=== PATIENT | female | born 1970 | race Caucasian/White ===

== ENCOUNTER 2023-08-12 17:48 | Inpatient (IN) | payer OTHER, SELFPAY ==
[2023-08-12] VITALS (40 sets, daily range): BP systolic 122–152; BP diastolic 72–117; PULSE 94–123; RESP 16–33; TEMP 37.1; O2SAT 94–100
--- NOTE | 2023-08-12 18:09 | ECG_ITS ---
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 Measurements Intervals [place] Rate: 122 P: 70 ID: [id number] QRS: -44 QRSD: 83 T: 81 QT: 322 QTc: 459 Interpretive Statements SINUS TACHYCARDIA LEFT AXIS DEVIATION [QRS AXIS < -30] POSSIBLE RIGHT VENTRICULAR CONDUCTION DELAY [RSR (QR) IN V1/V2] SEPTAL MYOCARDIAL INFARCTION , PROBABLY RECENT [40+ ms Q WAVE IN V1/V2] No previous ECG available for comparison Electronically Signed On 08-13-2023 6:36:17 CDT by Sathya Lezama M.D. [id number]
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
[2023-08-12 18:37] LABS: ABG PH Result 7.38 (7.35-7.45); Alveolar-Arterial Oxygen Gradi 5.1 mmHg (5-10); Arterial Blood Gas Hematocrit 57.6 % (37-47); Base Excess ABG -7.8 mmol/L (-2.0-2.0); Blood Gas Allen Test Pos; Blood Gas Operator Identificat WALCI; Blood Gas Sample Site Radial, right; Blood Gas Sample Type Arterial; HCO3 ABG 14.9 mmol/L (22-26); HGB O2 Sat 94.8 % (95-100); Ionized Calcium Level - ABG 1.1 mmol/L (1.1-1.4); Methemoglobin 0.3 % (0.4-1.5); Oxygen Device ROOM AIR; PO2 ABG 77.6 mmHg (80.0-100.0); PO2 FiO2 Ratio Arterial Blood 0; Potassium Level - ABG 4.3 mmol/L (3.5-5.0); Total Hemoglobin 18.8 g/dL (12-16)
[2023-08-12] MEDS: tetanus-dipt-pertussis 0.5 mL SDV IM (18:39)
[2023-08-12] MEDS: sodium chloride 0.9% 1,000 ML 999 ML IV ×3 (18:39→22:05)
[2023-08-12 18:48] LABS: Basophils # 0.1 10^3/uL (0.0-0.1); Basophils % 0.4 %; Hematocrit 55.2 % (36-47); Lymphocytes # 1.7 10^3/uL (0.8-4.8); Lymphocytes % 5.5 %; Mean Corpuscular HGB Conc 34.2 g/dL (30-55); Mean Corpuscular Hemoglobin 31.2 pg (27-33); Mean Corpuscular Volume 91.1 fl (85-98); Mean Platelet Volume 9.5 fL (7.4-10.4); Monocytes # 1.3 10^3/uL (0.2-0.9); Monocytes % 4.3 %; Neutrophils # 27.36 10^3/uL (1.8-7.7); Neutrophils % 88.5 %; Nucleated Red Blood Cells % 0.1 %; Platelet Count 242 10^3/cmm (157-399); Red Blood Count 6.06 10^6/uL (3.85-5.65); Red Cell Distribution Width 15.9 % (12.1-15.1)
[2023-08-12 19:02] LABS: Ketone (Acetest) Serum Negative (Negative)
[2023-08-12 19:03] LABS: Add Urine Microscopic? YES; Bilirubin Urine Neg (Negative); Blood Urine 3+ (Negative); Glucose Urine UA Norm (Normal); Ketones Urine Negative (Negative); Leukocyte Esterase Urine Negative (Negative); Nitrate Urine Negative (Negative); Protein Urine 1+ (Negative); Urine Appearance SL Hazy (CLEAR); Urine Color Yellow (Yellow); Urobilinogen Urine Norm (Negative); pH Urine 5 (5-7)
[2023-08-12 19:07] LABS: RBC Urine 0-4 /hpf (0-2)
[2023-08-12 19:08] LABS: Add Urine Culture? No; Amorphous Sediment Urine TRACE /hpf; Amphetamines Screen Urine Negative (Negative); Bacteria Urine TRACE /hpf; Barbiturates Screen Urine Negative (Negative); Benzodiazepines Screen Urine Negative (Negative); Cocaine Screen Urine Negative (Negative); Mucus Urine TRACE /hpf; Opiate Screen Urine Negative (Negative); PCP Screen Urine Negative (Negative); Squamous Epithelial Cell Urine 0-4 /hpf (0-5); THC Screen Urine Negative (Negative); WBC Urine 0-4 /hpf (0-5)
[2023-08-12 19:11] LABS: White Blood Count 30.91 10^3/uL (3.29-11.43)
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
[2023-08-12 19:27] LABS: Ammonia 21 umol/L (11-51); Lactic Sepsis W/Reflex 3.4 mmol/L (0.5-2.2)
[2023-08-12 19:34] LABS: Alanine Aminotransferase 250 U/L (0-33); Albumin Level 4.2 g/dL (3.5-5.2); Alkaline Phosphatase 118 U/L (35-105); Aspartate Amino Transferase 377 U/L (0-32); Calcium 9.4 mg/dL (8.5-10.5); Carbon Dioxide 20 mmol/L (22-29); Chloride 108 mmol/L (98-107); Globulin 4.7 g/dL (1.3-4.6); Glomerular Filtration Rate 12.9 mL/min (90-130); Glucose 154 mg/dL (65-115); Lipase 47 U/L (13-60); Magnesium 3.9 mg/dL (1.7-2.3); Osmolality Calculated 350 mOsm/kg (285-295); Sodium 151 mmol/L (136-145); Total Bilirubin 0.7 mg/dL (0.15-1.2); Total Protein 8.9 g/dL (6.6-8.7)
[2023-08-12 19:39] LABS: Acetaminophen < 5.0 ug/mL (10-30); Alcohol Level < 10 mg/dL (0-10); Anion Gap 27.4 (5-19); Potassium 4.4 mmol/L (3.5-5.1); Salicylate < 0.3 mg/dL (3-10)
[2023-08-12 19:40] LABS: Blood Urea Nitrogen 110 mg/dL (6-20)
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
[2023-08-12 19:54] LABS: Creatine Phosphokinase 27598 U/L (26-192)
[2023-08-12 20:33] LABS: Reflex Lactate Order REFLEX LACTIC ORDERD
[2023-08-12] MEDS: cefTRIAXone 1,000 MG in sodium chloride 0.9% (plus) 50 ML 100 MG IV (20:44)
--- NOTE | 2023-08-12 22:11 | PC.NURSE ---
pt care note. officer came to speak with patient. pt was alert and oriented and consented for sane exam. this nurse called sane nurses back in.
[2023-08-12 22:34] LABS: Lactic Acid level (Lactate) 2.7 mmol/L (0.5-2.2)
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
--- NOTE | 2023-08-12 23:14 | ECG_ITS ---
[facility] Test Date: 2023-08-12 Pat Name: Sobeida Barrios Department: Room: ICU12 Gender: Female Trick Rodeo Rider: : 1970 Requested By: Tiffany Wagner Order Number: [id number] Terra MD: Sathya Lezama M.D. Measurements Intervals [place] Rate: 114 P: 66 CT: 136 QRS: -35 QRSD: 84 T: 52 QT: 341 QTc: 471 Interpretive Statements SINUS TACHYCARDIA WITH OCCASIONAL VENTRICULAR PREMATURE COMPLEXES POSSIBLE LEFT ATRIAL ENLARGEMENT [-0.1mV P-WAVE IN V1/V2] LEFT AXIS DEVIATION [QRS AXIS < -30] POSSIBLE RIGHT VENTRICULAR CONDUCTION DELAY [RSR (QR) IN V1/V2] SEPTAL MYOCARDIAL INFARCTION , PROBABLY RECENT [40+ ms Q WAVE IN V1/V2] ACUTE WV Compared to ECG 08/12/2023 18:20:38 Ventricular premature complex(es) now present Myocardial infarct finding still present Electronically Signed On 08-13-2023 6:35:45 CDT by Sathya Lezama M.D. [email or web address]
--- NOTE | 2023-08-12 23:19 | PC.NURSE ---
96 Hour Involuntary Hold Patient Rights have been read to the patient and a copy of the same has been given to her. Engine Wiper Kindra Duarte was present at bedside at the time of presentation of Rights.
[2023-08-13] VITALS (108 sets, daily range): BP systolic 118–150; BP diastolic 72–106; PULSE 76–117; RESP 14–30; TEMP 37.2–37.7; O2SAT 77–100; BMI 25.3; BMI 25.2
[2023-08-13 00:34] LABS: Troponin(5th) Baseline 585 ng/L (0-10)
--- NOTE | 2023-08-13 00:53 | USCV_ITS ---
Sobeida Barrios Age: 53 Gender: F : 1970 Exam Date: 08/13/2023 08:23 Ordering Phys: Tiffany Wagner MD Technologist: Exam Location: [facility] [place] Indication: chest pain BP: 124 / 73 HR: 101 Rhythm: Sinus Technical Quality: Adequate MEASUREMENTS (Male / Female) Normal Values 2D ECHO LV Diastolic Diameter PLAX 3.7 cm 4.2 - 5.9 / 3.9 - 5.3 cm IVS Diastolic Thickness 1.1 cm 0.6 - 1.0 / 0.6 - 0.9 cm IVS Systolic Thickness 1.3 cm LVPW Diastolic Thickness 1.0 cm 0.6 - 1.0 / 0.6 - 0.9 cm LVPW Systolic Thickness 1.5 cm LVOT Diameter 2.0 cm LV Ejection Fraction 2D Teich 49.3 % LV Ejection Fraction MOD 2C 57.4 % LV Ejection Fraction 2C AL 57.4 % LA Diameter 2.2 cm RA Systolic Volume 4C AL 18.7 ml RA Systolic Volume 4C MOD 18.0 ml LA Sys Volume AL 33.8 cm cubed LA Sys Volume Index AL 20.4 cm cubed/m squared Aorta at Sinotubular Diameter 2.9 cm IVC Diameter 1.1 cm M-MODE LA Ao Ratio MM 0.9 AV Cusp Separation MM 2.1 cm DOPPLER AV Peak Velocity 123.0 cm/s LVOT Peak Velocity 100.0 cm/s AV Area Cont Eq vti 3.5 cm squared AV Area Cont Eq pk 2.6 cm squared MV Peak Velocity 88.0 cm/s MV Area PHT 4.3 cm squared Mitral E to A Ratio 0.9 TR Peak Velocity 136.0 cm/s TR Peak Gradient 7.4 mmHg TV Peak E Velocity 132.0 cm/s Right Atrial Pressure 3.0 mmHg Pulmonary Artery Systolic Pressu 10.4 mmHg PV Peak Velocity 117.0 cm/s FINDINGS Left Ventricle Normal left ventricular size and systolic function, EF 57%no regional wall motion abnormalities. . Right Ventricle The right ventricle is normal in size and function. Right Atrium The right atrium is normal in size. Left Atrium The left atrium is normal in size. Mitral Valve No gross abnormalities noted Aortic Valve Trace aortic valve regurgitation. Tricuspid Valve Trace to mild tricuspid valve regurgitation. Estimated pulmonary artery peak systolic pressure within normal limits Pulmonic Valve Pulmonic valve not well visualized. Pericardium Normal pericardium without effusion. Aorta Normal ascending aorta dimension. IVC Normal inferior vena cava. CONCLUSIONS Normal left ventricular size and systolic function, EF 57%no regional wall motion abnormalities. . Trace aortic valve regurgitation. Trace to mild tricuspid valve regurgitation. Estimated pulmonary artery peak systolic pressure within normal limits. There is no pericardial effusion. Technically difficult study because of the poor ultrasonic window. Dr Narda Ramírez MD FAC (Electronically Signed) Final Date: 13 August 2023 17:00 S
[2023-08-13] MEDS: sodium chloride 0.9% 1,000 ML 125 ML IV (01:03)
[2023-08-13] MEDS: azithromycin 500 MG in sodium chloride 0.9% 250 ML 250 MG IV (01:03)
[2023-08-13] MEDS: aspirin 325 mg Tablet PO (01:03)
[2023-08-13 01:43] LABS: Platelet Count 179 10^3/cmm (157-399)
[2023-08-13] MEDS: heparin 5,000 unit/mL INJ 1 mL IV (01:46)
[2023-08-13] MEDS: heparin drip 25,000 UNIT/500 ML PREMIX 19 UNIT IV (01:46)
[2023-08-13 02:06] LABS: C Reactive Protein 154.2 mg/L (0.0-4.9); Cholesterol 214 mg/dL (0-200); HDL Cholesterol 42 mg/dL (60-100); Triglycerides 420 mg/dL (0-150)
[2023-08-13] MEDS: piperacillin-tazobactam 3.375 GM in sodium chloride 0.9% (plus) 50 ML IV ×2 (02:08→12:38)
[2023-08-13 02:11] LABS: Estmated Average Glucose 108; Hemoglobin A1C 5.4 % (4.0-6.0)
[2023-08-13 02:12] LABS: Troponin 5 2HR 620.3 ng/L (0-10); Troponin 5 2HR Delta 35.3 ABS# (0-10)
[2023-08-13 02:25] LABS: LDL Cholesterol Direct 86 mg/dL (0-100)
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
--- NOTE | 2023-08-13 05:14 | ECG_ITS ---
[facility] Test Date: 2023-08-13 Pat Name: Sobeida Barrios Department: Room: ICU12 Gender: Female [employer]ator: : 1970 Requested By: Tiffany Wagner Order Number: [id number] Terra MD: Sathya Lezama M.D. Measurements Intervals [place] Rate: 110 P: 67 NV: 134 QRS: -26 QRSD: 77 T: 53 QT: 356 QTc: 482 Interpretive Statements SINUS TACHYCARDIA POSSIBLE RIGHT VENTRICULAR CONDUCTION DELAY [RSR (QR) IN V1/V2] SEPTAL MYOCARDIAL INFARCTION , OF INDETERMINATE AGE [40+ ms Q WAVE IN V1/V2] Compared to ECG 08/12/2023 23:49:22 Ventricular premature complex(es) no longer present Left-axis deviation no longer present Myocardial infarct finding still present Electronically Signed On 08-13-2023 6:37:10 CDT by Sathya Lezama M.D. [id number]
[2023-08-13 06:04] LABS: Basophils % 0.2 %; Hematocrit 44.4 % (36-47); Lymphocytes # 1.8 10^3/uL (0.8-4.8); Lymphocytes % 7.2 %; Mean Corpuscular HGB Conc 33.3 g/dL (30-55); Mean Corpuscular Hemoglobin 31.1 pg (27-33); Mean Corpuscular Volume 93.3 fl (85-98); Mean Platelet Volume 9.5 fL (7.4-10.4); Monocytes # 1.2 10^3/uL (0.2-0.9); Neutrophils % 87.2 %; Nucleated Red Blood Cells % 0 %; Platelet Count 180 10^3/cmm (157-399); Red Blood Count 4.76 10^6/uL (3.85-5.65); Red Cell Distribution Width 15.7 % (12.1-15.1); White Blood Count 24.55 10^3/uL (3.29-11.43)
[2023-08-13 06:26] LABS: Alanine Aminotransferase 162 U/L (0-33); Albumin Level 2.9 g/dL (3.5-5.2); Alkaline Phosphatase 78 U/L (35-105); Anion Gap 20.4 (5-19); Aspartate Amino Transferase 235 U/L (0-32); Calcium 7.4 mg/dL (8.5-10.5); Carbon Dioxide 16 mmol/L (22-29); Chloride 123 mmol/L (98-107); Creatinine Clr Calc Pharmacy 22.0731; Globulin 3.2 g/dL (1.3-4.6); Glomerular Filtration Rate 17.7 mL/min (90-130); Glucose 120 mg/dL (65-115); Osmolality Calculated 350 mOsm/kg (285-295); Potassium 4.4 mmol/L (3.5-5.1); Sodium 155 mmol/L (136-145); Total Bilirubin 0.7 mg/dL (0.15-1.2); Total Protein 6.1 g/dL (6.6-8.7)
[2023-08-13] MEDS: dextrose 5%-sod chloride 0.45% 1,000 ML 125 ML IV ×2 (06:29→16:35)
[2023-08-13 06:31] LABS: Blood Urea Nitrogen 94 mg/dL (6-20); Troponin 5 6HR 679.4 ng/L (0-10); Troponin 5 6HR Delta 94.4 ng/L (0-12)
[2023-08-13 06:34] LABS: HIV 1 & 2 Antibody Non-Reactive (Non-Reactiv); HIV 1 & 2 Antigen Non-Reactive (Non-Reactiv)
[2023-08-13 06:40] LABS: Hepatitis A Antibody IgM Non-Reactive (Nonreactive); Hepatitis B Core AB, Total Non-Reactive (Nonreactive); Hepatitis B Surface AB < 3.5 (11.5-1000); Hepatitis B Surface Antigen Non-Reactive (Nonreactive); Hepatitis C Virus Antibody Non-Reactive (Nonreactive)
[2023-08-13] MEDS: vancomycin 1,000 MG in sodium chloride 0.9% 250 ML 250 MG IV (08:19)
[2023-08-13 08:58] LABS: Partial Thromboplastin Time 91.9 SECONDS (23.9-36.7)
--- NOTE | 2023-08-13 09:24 | USCV_ITS ---
Sobeida Barrios Age: 53 Gender: F : 1970 Exam Date: 08/13/2023 09:48 Ordering Phys: Emily Tolliver MD Technologist: [place] [facility] [place] Indication: cold feet RIGHT LEFT Brachial 100.00 mmHg Brachial 100.00 mmHg Pressure (mmHg) Waveform Pressure (mmHg) Waveform 100.00 Triphasic ELECTRIC CAR OPERATOR 100.00 Biphasic 100.00 Biphasic DPA 100.00 Biphasic 1.00 Ankle/Brachial Index 1.00 FINDINGS Resting TIFFANIE 1.0 bilaterally Normal arterial Doppler waveforms CONCLUSIONS No significant arterial obstruction, based on the above findings. Dr Narda Ramírez MD [facility] (Electronically Signed) Final Date: 13 August 2023 12:11 S
[2023-08-13 10:13] LABS: Creatine Phosphokinase 18182 U/L (26-192)
[2023-08-13 13:15] LABS: Adenovirus Not Detected (NOT DETECT); Chlamydia Pneumoniae Not Detected (NOT DETECT); Coronavirus 229E,HKU1,NL63,OC4 Not Detected (NOT DETECT); Human Metapneumovirus Not Detected (NOT DETECT); Human Rhinovirus/Enterovirus Not Detected (NOT DETECT); Influenza A Not Detected (NOT DETECT); Influenza A H1 Not Detected (NOT DETECT); Influenza A H1-2009 Not Detected (NOT DETECT); Influenza A H3 Not Detected (NOT DETECT); Influenza B Not Detected (NOT DETECT); Mycoplasma Pneumoniae Not Detected (NOT DETECT); Parainfluenza Virus Type 1 Not Detected (NOT DETECT); Parainfluenza Virus Type 2 Not Detected (NOT DETECT); Parainfluenza Virus Type 3 Not Detected (NOT DETECT); Parainfluenza Virus Type 4 Not Detected (NOT DETECT); Respiratory Syncytial Virus A Not Detected (NOT DETECT); Respiratory Syncytial Virus B Not Detected (NOT DETECT); SARS-COV-2 Not Detected (NOT DETECT)
[2023-08-13 15:27] LABS: Partial Thromboplastin Time 67.7 SECONDS (23.9-36.7)
[2023-08-13 15:35] LABS: Troponin T (5th) Once 672 ng/L (0-10)
--- NOTE | 2023-08-13 16:53 | PC.NURSE ---
Patient is now A&O to person, place, year and month. She is still confused about why she is in the hospital and the events that led up to event.
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
[2023-08-13] MEDS: pantoprazole 40 mg SDV IVP (19:45)
[2023-08-13] MEDS: clopidogrel 300 mg Tablet PO (19:46)
[2023-08-13] MEDS: permethrin lotion 59 mL Btl 1 APPLIC TOPICAL (19:46)
[2023-08-13] MEDS: atorvastatin 40 mg Tablet PO (21:34)
[2023-08-13] MEDS: metoprolol tartrate 25 mg Tablet PO (21:34)
[2023-08-13] MEDS: ciprofloxacin 0.3% Op Soln 2.5 mL Btl 1 DROP EYE-BOTH (21:36)
--- NOTE | 2023-08-13 21:57 | PC.NURSE ---
Pt transported via wheelchair to take shower and be treated for headlice. Pt requested to have her head shaved. Shaved patients head and treated scalp for lice. Returned to room via wheelchair, reconnected to library monitor. Vital signs stable.
[2023-08-13 22:26] LABS: Partial Thromboplastin Time 40.5 SECONDS (23.9-36.7)
[2023-08-14] VITALS (25 sets, daily range): BP systolic 101–130; BP diastolic 60–85; PULSE 73–90; RESP 15–23; TEMP 36.6–37.4; O2SAT 91–100
[2023-08-14] MEDS: piperacillin-tazobactam 3.375 GM in sodium chloride 0.9% (plus) 50 ML IV (00:24)
[2023-08-14] MEDS: dextrose 5%-sod chloride 0.45% 1,000 ML 125 ML IV ×3 (02:15→22:07)
[2023-08-14 04:00] LABS: Basophils % 0.2 %; Eosinophils % 0.2 %; Hematocrit 39.1 % (36-47); Lymphocytes # 2.5 10^3/uL (0.8-4.8); Lymphocytes % 16.6 %; Mean Corpuscular HGB Conc 32.5 g/dL (30-55); Mean Corpuscular Hemoglobin 31.1 pg (27-33); Mean Corpuscular Volume 95.6 fl (85-98); Mean Platelet Volume 9.7 fL (7.4-10.4); Monocytes # 0.7 10^3/uL (0.2-0.9); Monocytes % 4.8 %; Neutrophils # 11.75 10^3/uL (1.8-7.7); Neutrophils % 77.8 %; Nucleated Red Blood Cells % 0 %; Platelet Count 125 10^3/cmm (157-399); Red Blood Count 4.09 10^6/uL (3.85-5.65); White Blood Count 15.09 10^3/uL (3.29-11.43)
[2023-08-14 04:23] LABS: Alanine Aminotransferase 131 U/L (0-33); Albumin Level 2.5 g/dL (3.5-5.2); Alkaline Phosphatase 63 U/L (35-105); Anion Gap 12.6 (5-19); Aspartate Amino Transferase 216 U/L (0-32); Blood Urea Nitrogen 54 mg/dL (6-20); Calcium 7.6 mg/dL (8.5-10.5); Carbon Dioxide 21 mmol/L (22-29); Chloride 120 mmol/L (98-107); Creatinine Clr Calc Pharmacy 36.3557; Globulin 2.8 g/dL (1.3-4.6); Glomerular Filtration Rate 31.6 mL/min (90-130); Glucose 122 mg/dL (65-115); Osmolality Calculated 326 mOsm/kg (285-295); Potassium 3.6 mmol/L (3.5-5.1); Sodium 150 mmol/L (136-145); Total Bilirubin 0.5 mg/dL (0.15-1.2); Total Protein 5.3 g/dL (6.6-8.7)
[2023-08-14 04:41] LABS: Creatine Phosphokinase 15308 U/L (26-192)
[2023-08-14] MEDS: pantoprazole 40 mg SDV IVP ×2 (06:22→18:31)
[2023-08-14] MEDS: enoxaparin 40 mg/0.4 mL Syringe SUBCUT (06:22)
[2023-08-14] MEDS: aspirin 81 mg EC Tablet PO (08:01)
[2023-08-14] MEDS: metoprolol tartrate 25 mg Tablet PO ×2 (08:01→20:15)
--- NOTE | 2023-08-14 11:41 | PC.NURSE ---
Received call from Naima Winchester [phone]. States she is the patient's mother and she wants an update. Naima says that the patient's called her and said she was in the hospital for a heart attack. Nurse advised he will pass the message on to the primary nurse.
--- NOTE | 2023-08-14 11:52 | P.PN_ITS ---
Subjective 2 Subjective: No acute overnight events noted. Was seen at bedside. She denies any complaint of nausea vomiting chest pain or shortness of breath. Reports feeling well but looks upset and depressed. Informed her about my discussion with her Everett Barrios. Medications: Reviewed: Yes Vitals/I&O/Wt Last Vital Signs Temp 99.0 F 08/14/23 04:00 Pulse 80 08/14/23 08:00 Resp 20 H 08/14/23 08:00 BP 110/68 08/14/23 08:00 Pulse Ox 91 08/14/23 08:00 O2 Del Method Room Air 08/14/23 06:00 08/13/23 08/14/23 08/14/23 22:59 06:59 14:59 Intake Total 540 / 1688.2 1278.367 / 2966.567 120 / 120 Output Total 1650 / 1650 950 / 2600 Balance -1110 / 38.2 328.367 / 366.567 120 / 120 Weight last 48 hrs Weight 68.946 kg Weight 66.678 kg Weight 66.996 kg Physical Exam 2 Narrative: General: Alert awake and oriented x 3 ,multiple bruises over body, head was shaved due to pediculosis, received second dose of permethrin in ICU. HEENT: PERRLA, pupils bilaterally equal and reactive, pallors not present Chest: Normal vesicular breath sounds, no added sounds, equal good air entry bilaterally CVS: S1-S2 regular, no murmurs, no tachycardia, no gallops, no rubs Abdomen: Soft, nontender, no organomegaly, bowel sounds present Neuro: moves all extremities Urinary Catheter Management: Mireles: Cath Placed During This Visit: yes Reason for Continuing Indwelling Catheter: Accurate Measurement of Urinary Output in Critically Ill Patients Urinary Catheter Date of Insertion: 08/13/23 Urinary Catheter Time of Insertion: 00:11 Data 08/14/23 03:44 08/14/23 03:44 Micro: Microbiology 08/12/23 19:54 Blood Culture - Preliminary Blood NEGATIVE TO DATE 08/12/23 19:50 Blood Culture - Preliminary Blood NEGATIVE TO DATE 08/12/23 18:45 Bacterial Antigens - Final Urine,Clean Catch A&P Assessment and plan (1) Elevated troponin: Etiology, type II [place] is a possibility. However in view of the abnormal EKG, an acute coronary event cannot be excluded. Her LV ejection fraction is normal. She has no chest pain. No acute ischemic changes in the EKG. May be treated with beta-abdoulaye, aspirin and Plavix. I may discontinue the heparin. Keep her on subcu Lovenox for DVT prophylaxis. (2) Leukocytosis: ? Acute phase reactant Qualifiers: Leukocytosis type: other Qualified Code(s): D72.828 - Other elevated white blood cell count (3) Acute dehydration: Careful IV hydration (4) Acute kidney injury: Continue careful IV hydration (5) Rhabdomyolysis: Management as per the primary Qualifiers: Encounter type: initial encounter Rhabdomyolysis type: traumatic Qualified Code(s): T79.6XXA - Traumatic ischemia of muscle, initial encounter (6) Altered mental status: Management as per the primary Qualifiers: Altered mental status type: unspecified Qualified Code(s): R41.82 - Altered mental status, unspecified (7) Multiple injuries: (8) Acute renal failure: Qualifiers: Acute renal failure type: unspecified Qualified Code(s): N17.9 - Acute kidney failure, unspecified (9) Pediculosis: Treated with Plan 53-year-old lady brought to the emergency room today in unclear circumstances and Noted to have multiple bruises Altered mental status may be related to encephalopathy vs acute delirium. Likely secondary to alcohol intoxication versus drug overdose Needs ICU monitoring for cardiopulmonary status. Acute delirium resolved. transfer to floor Cardiovascular-follow up cardiology once medically stable. Continue aspirin 81 mg and atorvastatin 40 mg. As per cardiology, may consider doing a Myocardial perfusion imaging. Discontinue IV heparin Metoprolol 25 mg p.o. Twice daily Plavix 300 mg p.o. today followed by 75 mg p.o. daily 2D echo done which showed Normal left ventricular size and systolic function, EF 57%no regional wall motion abnormalities. . Trace aortic valve regurgitation. Trace to mild tricuspid valve regurgitation. Estimated pulmonary artery peak systolic pressure within normal limits. There is no pericardial effusion. Respiratory-stable Nephrology-continue IV fluids D5 half NS at 125 MLS per hour for rhabdomyolysis. CK trending down to 15k Recheck CK at 2pm ID-leukocytosis likely reactive which is improving, in view of negative urine and blood cultures, will discontinue IV antibiotics vancomycin and Zosyn for now. Ciprofloxacin eyedrops for acute conjunctivitis GI- LFT's trending down elevation of transaminases likely due to alcohol intoxication. Psych-continue 1 is to 1 sitter until seen by psychiatry Psychiatry consult- Dr Duarte to see her today As needed Haldol for agitation if needed Regular diet DVT prophylaxis with Sq Lovenox 40mg daily GI prophylaxis with IV Protonix 40 mg twice daily She is full code for now Home medications needs to be reconciled Attestations 2 Medical Necessity Statement*: She needs continued for IV fluids for acute rhabdomyolysis reactive leukocytosis and monitoring for suicidal ideation. Psychiatry to see her today Time Spent in Patient Care: 15 minutes Coding Level of Care Code Acute Code for Chg Fwd Diagnoses Elevated troponin R79.89 Other elevated white blood cell (WBC) count D72.828 Leukocytosis type: other Acute dehydration E86.0 Acute kidney injury N17.9 Rhabdomyolysis T79.6XXA Encounter type: initial encounter Rhabdomyolysis type: traumatic Altered mental status, unspecified altered mental status type R41.82 Altered mental status type: unspecified Multiple injuries T07.XXXA Acute renal failure N17.9 Acute renal failure type: unspecified Pediculosis B85.2 Time Spent (min) 15
--- NOTE | 2023-08-14 13:24 | P.PN_ITS ---
Subjective 2 Subjective: Patient seems to be more alert today. She still does not recall what exactly happened at home. Currently has no chest pain or chest tightness. No unusual shortness of breath. The vital signs are stable. Medications: Medication Review Details: Current Medications Artificial Tears (Artificial Tears Op Soln 15 Ml Btl) 1 drop EYE-BOTH Q4H PRN PRN Reason: DRY EYE(S) Aspirin (Aspirin 81 Mg Ec Tablet) 81 mg PO DAILY [facility] Last Admin: 08/14/23 08:01 Dose: 81 mg Atorvastatin Calcium (Atorvastatin 40 Mg Tablet) 40 mg PO BEDTIME [facility] Last Admin: 08/13/23 21:34 Dose: 40 mg Ciprofloxacin HCl (Ciprofloxacin 0.3% Op Soln 2.5 Ml Btl) 1 drop EYE-BOTH QID [facility]; Protocol Last Admin: 08/14/23 08:01 Dose: Not Given Enoxaparin Sodium (Enoxaparin 40 Mg/0.4 Ml Syringe) 40 mg SUBCUT Q24H [facility] Last Admin: 08/14/23 06:22 Dose: 40 mg Haloperidol Lactate (Haloperidol Inj 5 Mg/Ml Inj 1 Ml) 2 mg IM Q4H PRN PRN Reason: prn Dextrose/Sodium Chloride (Dextrose 5%-Sod Chloride 0.45%) 1,000 mls @ 125 mls/hr IV .Q8H [facility] Last Admin: 08/14/23 02:15 Dose: 125 mls/hr Metoprolol Tartrate (Metoprolol Tartrate 25 Mg Tablet) 25 mg PO BID@0900,2100 [facility] Last Admin: 08/14/23 08:01 Dose: 25 mg Pantoprazole Sodium (Pantoprazole 40 Mg Sdv) 40 mg IVP Q12H [facility] Last Admin: 08/14/23 06:22 Dose: 40 mg Vitals/I&O/Wt Last Vital Signs Temp 99.0 F 08/14/23 04:00 Pulse 73 08/14/23 12:00 Resp 21 H 08/14/23 12:00 BP 109/65 08/14/23 12:00 Pulse Ox 91 08/14/23 08:00 O2 Del Method Room Air 08/14/23 06:00 08/13/23 08/14/23 08/14/23 22:59 06:59 14:59 Intake Total 540 / 1688.2 1278.367 / 2966.567 120 / 120 Output Total 1650 / 1650 950 / 2600 Balance -1110 / 38.2 328.367 / 366.567 120 / 120 Weight last 48 hrs Weight 152 lb Weight 147 lb Weight 147 lb 11.2 oz Physical Exam 2 Narrative: GENERAL: The patient is alert and oriented to person and place. Not in any acute distress. HEENT: No significant pallor, icterus or lymphadenopathy.Oral cavity: There are no mucous membrane lesions. NECK: Trachea appears to be central. No masses noted. No JVD or thyromegaly appreciated. RESPIRATORY: Chest is symmetrical. No intercostals muscle retraction or any accessory muscle activation. Has some bilateral chest wall tenderness. Breath sounds are heard bilaterally. BREASTS: Deferred. HEART: The heart sounds are normal. No S3 or S4. No significant murmurs. No pericardial rub ABDOMEN: No vessel pulsations or distention. No tenderness. No organomegaly appreciated. Bowel sounds are normally heard. : Deferred. RECTAL: Deferred. LYMPHATIC: No lymphadenopathy noted in the neck. EXTREMITIES: No edema or cyanosis. No clubbing. Areas of ecchymosis, superficial abrasions and bruising MUSCULOSKELETAL: No acute joint deformities or swelling SKIN: There are no significant rashes or ecchymosis NEUROPSYCHIATRIC: Patient is alert and oriented to place and person. Do not recall the recent events. No focal motor deficits. Urinary Catheter Management: Mireles: Cath Placed During This Visit: yes Reason for Continuing Indwelling Catheter: Accurate Measurement of Urinary Output in Critically Ill Patients Urinary Catheter Date of Insertion: 08/13/23 Urinary Catheter Time of Insertion: 00:11 Data 08/17/23 04:26 08/17/23 04:26 Other Labs: Laboratory Last Values WBC 15.09 10^3/uL (3.29-11.43) H 08/14/23 03:44 RBC 4.09 10^6/uL (3.85-5.65) 08/14/23 03:44 Hgb 12.70 g/dL (11.27-16.99) 08/14/23 03:44 Hct 39.1 % (36-47) 08/14/23 03:44 MCV 95.6 fl (85-98) 08/14/23 03:44 MCH 31.1 pg (27-33) 08/14/23 03:44 MCHC 32.5 g/dL (30-55) 08/14/23 03:44 RDW 16.0 % (12.1-15.1) H 08/14/23 03:44 Plt Count 125 10^3/cmm (157-399) L D 08/14/23 03:44 MPV 9.7 fL (7.4-10.4) 08/14/23 03:44 Neut % (Auto) 77.8 % 08/14/23 03:44 Lymph % (Auto) 16.6 % 08/14/23 03:44 [place] % (Auto) 4.8 % 08/14/23 03:44 Eos % (Auto) 0.2 % 08/14/23 03:44 Baso % (Auto) 0.2 % 08/14/23 03:44 Neut # (Auto) 11.75 10^3/uL (1.8-7.7) H 08/14/23 03:44 Lymph # (Auto) 2.5 10^3/uL (0.8-4.8) 08/14/23 03:44 [place] # (Auto) 0.7 10^3/uL (0.2-0.9) 08/14/23 03:44 Eos # (Auto) 0.0 10^3/uL (0.0-0.8) 08/14/23 03:44 Baso # (Auto) 0.0 10^3/uL (0.0-0.1) 08/14/23 03:44 Nucleated RBC % (auto) 0 % 08/14/23 03:44 Nucleated RBCs # 0.0 /100WBC 08/14/23 03:44 APTT 40.5 SECONDS (23.9-36.7) H 08/13/23 21:57 Specimen Type Arterial 08/12/23 18:26 Sample Site Radial, right 08/12/23 18:26 ABG pH 7.38 (7.35-7.45) 08/12/23 18:26 ABG pCO2 25.0 mmHg (35-45) L 08/12/23 18:26 ABG pO2 77.6 mmHg (80.0-100.0) L 08/12/23 18:26 ABG PO2/FiO2 Ratio 0 08/12/23 18:26 ABG HCO3 14.9 mmol/L (22-26) L 08/12/23 18:26 ABG O2 Saturation 96.0 08/12/23 18:26 ABG Base Excess -7.8 mmol/L (-2.0-2.0) L 08/12/23 18:26 Vikram Test Pos 08/12/23 18:26 A-a O2 Gradient 5.1 mmHg (5-10) 08/12/23 18:26 Hematocrit 57.6 % (37-47) H 08/12/23 18:26 Hgb O2 Saturation 94.8 % (95-100) L 08/12/23 18:26 Carboxyhemoglobin 1.0 %THgb (0.4-20.1) 08/12/23 18:26 Methemoglobin 0.3 % (0.4-1.5) L 08/12/23 18:26 Total Hemoglobin 18.8 g/dL (12-16) H 08/12/23 18:26 Sodium 153.0 mmol/L (131-143) H 08/12/23 18:26 Potassium 4.3 mmol/L (3.5-5.0) 08/12/23 18:26 Glucose 172.0 mg/dL (70-115) H 08/12/23 18:26 Ionized Calcium 1.1 mmol/L (1.1-1.4) 08/12/23 18:26 O2 Delivery Device Room air 08/12/23 18:26 FiO2 21.0 % 08/12/23 18:26 [employer]phalt [employer] ID [place] 08/12/23 18:26 Sodium 150 mmol/L (136-145) H 08/14/23 03:44 Potassium 3.6 mmol/L (3.5-5.1) 08/14/23 03:44 Chloride 120 mmol/L (98-107) H 08/14/23 03:44 Carbon Dioxide 21 mmol/L (22-29) L 08/14/23 03:44 Anion Gap 12.6 (5-19) 08/14/23 03:44 BUN 54 mg/dL (6-20) H 08/14/23 03:44 Creatinine 1.7 mg/dL (0.5-0.9) H 08/14/23 03:44 GFR Calculation 31.6 mL/min (90-130) L 08/14/23 03:44 Glucose 122 mg/dL (65-115) H 08/14/23 03:44 Estimat Average Glucose 108 08/13/23 01:36 Hemoglobin A1c 5.4 % (4.0-6.0) 08/13/23 01:36 Calculated Osmolality 326 mOsm/kg (285-295) H 08/14/23 03:44 Lactic Acid 3.4 mmol/L (0.5-2.2) H 08/12/23 18:26 Lactic Acid (Sepsis) 2.7 mmol/L (0.5-2.2) H 08/12/23 21:55 Calcium 7.6 mg/dL (8.5-10.5) L 08/14/23 03:44 Magnesium 3.9 mg/dL (1.7-2.3) H 08/12/23 18:26 Total Bilirubin 0.5 mg/dL (0.15-1.2) 08/14/23 03:44 AST 216 U/L (0-32) H 08/14/23 03:44 ALT 131 U/L (0-33) H 08/14/23 03:44 Alkaline Phosphatase 63 U/L (35-105) 08/14/23 03:44 Ammonia 21 umol/L (11-51) 08/12/23 18:26 Creatine Kinase 93833 U/L (26-192) H* 08/14/23 03:44 Troponin T 5th Gen ng/L 672 ng/L (0-10) H* 08/13/23 14:57 Troponin T Baseline 585 ng/L (0-10) H* 08/12/23 23:40 Troponin T 120 Minute 620.3 ng/L (0-10) H 08/13/23 01:36 Delta Troponin T 35.3 ABS# (0-10) H* 08/13/23 01:36 Troponin T Hi Sens 6Hr 679.4 ng/L (0-10) H 08/13/23 05:47 Troponin T Hi Sens 6Hr Delta 94.4 ng/L (0-12) H* 08/13/23 05:47 C-Reactive Protein 154.2 mg/L (0.0-4.9) H 08/13/23 01:36 Total Protein 5.3 g/dL (6.6-8.7) L 08/14/23 03:44 Albumin 2.5 g/dL (3.5-5.2) L 08/14/23 03:44 Globulin 2.8 g/dL (1.3-4.6) 08/14/23 03:44 Triglycerides 420 mg/dL (0-150) H 08/13/23 01:36 Cholesterol 214 mg/dL (0-200) H 08/13/23 01:36 LDL Cholesterol Direct 86 mg/dL (0-100) 08/13/23 01:36 LDL Cholesterol, Calc Not Reportable 08/13/23 01:36 HDL Cholesterol 42 mg/dL (60-100) L 08/13/23 01:36 LDL/HDL Ratio Not Reportable 08/13/23 01:36 Cholesterol/HDL Ratio 5.10 mg/dL (0.0-4.40) H 08/13/23 01:36 Lipase 47 U/L (13-60) 08/12/23 18:26 Procalcitonin 0.80 ng/mL (0-0.5) H 08/13/23 01:36 TSH 4.80 uIU/mL (0.27-4.20) H 08/13/23 05:47 Urine Color Yellow (Yellow) 08/12/23 18:45 Urine Appearance Sl hazy (CLEAR) A 08/12/23 18:45 Urine pH 5 (5-7) 08/12/23 18:45 Ur Specific [place] 1.030 (1.005-1.030) 08/12/23 18:45 Urine Protein 1+ (Negative) H 08/12/23 18:45 Urine Glucose (UA) Norm (Normal) 08/12/23 18:45 Urine Ketones Negative (Negative) 08/12/23 18:45 Urine Blood 3+ (Negative) H 08/12/23 18:45 Urine Nitrate Negative (Negative) 08/12/23 18:45 Urine Bilirubin Neg (Negative) 08/12/23 18:45 Urine Urobilinogen Norm mg/dL (Negative) 08/12/23 18:45 Ur Leukocyte Esterase Negative (Negative) 08/12/23 18:45 Urine RBC 0-4 /hpf (0-2) H 08/12/23 18:45 Urine WBC 0-4 /hpf (0-5) H 08/12/23 18:45 Ur Squamous Epith Cells 0-4 /hpf (0-5) H 08/12/23 18:45 Amorphous Sediment Trace /hpf 08/12/23 18:45 Urine Bacteria Trace /hpf (NONE) 08/12/23 18:45 Urine Mucus Trace /hpf 08/12/23 18:45 Salicylates < 0.3 mg/dL (3-10) L 08/12/23 18:26 Urine Opiates Screen Negative ng/mL (Negative) 08/12/23 18:45 Acetaminophen < 5.0 ug/mL (10-30) L 08/12/23 18:26 Ur Barbiturates Screen Negative ng/mL (Negative) 08/12/23 18:45 Ur Phencyclidine Scrn Negative ng/mL (Negative) 08/12/23 18:45 Ur Amphetamines Screen Negative ng/mL (Negative) 08/12/23 18:45 U Benzodiazepines Scrn Negative ng/mL (Negative) 08/12/23 18:45 Urine Cocaine Screen Negative ng/mL (Negative) 08/12/23 18:45 U Marijuana (THC) Screen Negative ng/mL (Negative) 08/12/23 18:45 Ethyl Alcohol < 10 mg/dL (0-10) 08/12/23 18:26 Serum Ketones Negative (Negative) 08/12/23 18:26 Adenovirus (PCR) Not detected (NOT DETECT) 08/13/23 06:30 C. pneumoniae DNA (PCR) Not detected (NOT DETECT) 08/13/23 06:30 Coronavirus 229E (PCR) Not detected (NOT DETECT) 08/13/23 06:30 Hepatitis A IgM Ab Non-reactive (Nonreactive) 08/13/23 01:36 Hep Bs Antigen Non-reactive (Nonreactive) 08/13/23 01:36 Hep Bs Antibody < 3.5 (11.5-1000) L 08/13/23 01:36 Hep B Core Total Ab Non-reactive (Nonreactive) 08/13/23 01:36 Hepatitis C Antibody Non-reactive (Nonreactive) 08/13/23 01:36 HIV 1&2 Ab & HIV 1 Ag Non-reactive (Non-Reactiv) 08/13/23 01:36 HIV 1&2 Antibody Non-reactive (Non-Reactiv) 08/13/23 01:36 Human Metapneumovir PCR Not detected (NOT DETECT) 08/13/23 06:30 Influenza A (H1) PCR Not detected (NOT DETECT) 08/13/23 06:30 Influ A (H1/09) PCR Not detected (NOT DETECT) 08/13/23 06:30 Influenza A (H3) PCR Not detected (NOT DETECT) 08/13/23 06:30 Influenza Type A (PCR) Not detected (NOT DETECT) 08/13/23 06:30 Influenza Type B (PCR) Not detected (NOT DETECT) 08/13/23 06:30 M. pneumoniae (PCR) Not detected (NOT DETECT) 08/13/23 06:30 Parainfluenza 1 (PCR) Not detected (NOT DETECT) 08/13/23 06:30 Parainfluenza 2 (PCR) Not detected (NOT DETECT) 08/13/23 06:30 Parainfluenza 3 (PCR) Not detected (NOT DETECT) 08/13/23 06:30 Parainfluenza 4 (PCR) Not detected (NOT DETECT) 08/13/23 06:30 RSV Type A (PCR) Not detected (NOT DETECT) 08/13/23 06:30 RSV Type B (PCR) Not detected (NOT DETECT) 08/13/23 06:30 Entero/Rhino (PCR) Not detected (NOT DETECT) 08/13/23 06:30 SARS-CoV-2 (PCR) Not detected (NOT DETECT) 08/13/23 06:30 Micro: Microbiology 08/12/23 19:54 Blood Culture - Preliminary Blood NEGATIVE TO DATE 08/12/23 19:50 Blood Culture - Preliminary Blood NEGATIVE TO DATE 08/12/23 18:45 Bacterial Antigens - Final Urine,Clean Catch A&P Assessment and plan (1) Elevated troponin: Etiology, type II [place] is a possibility. However in view of the abnormal EKG, an acute coronary event cannot be excluded. Her LV ejection fraction is normal. She has no chest pain. No acute ischemic changes in the EKG. May be treated with beta-abdoulaye, aspirin and Plavix. I may hold off on the Lipitor because of the elevated CPK (2) Leukocytosis: ? Acute phase reactant Qualifiers: Leukocytosis type: other Qualified Code(s): D72.828 - Other elevated white blood cell count (3) Acute dehydration: Careful IV hydration (4) Acute kidney injury: Continue careful IV hydration (5) Rhabdomyolysis: May be appropriate to hold off on the statin drugs because of the rhabdomyolysis Qualifiers: Encounter type: initial encounter Rhabdomyolysis type: traumatic Qualified Code(s): T79.6XXA - Traumatic ischemia of muscle, initial encounter (6) Altered mental status: Seems to have some slow improvement. Qualifiers: Altered mental status type: unspecified Qualified Code(s): R41.82 - Altered mental status, unspecified Plan Once the patient's medical condition is stable, may consider doing a Myocardial perfusion imaging. Continue on the current medications for the time being Based on the clinical progress, further recommendations will be made Attestations 2 Medical Necessity Statement*: Patient requires continued hospital stay for close monitoring and further management Coding Level of Care Code 90416 Diagnoses Elevated troponin R79.89 Other elevated white blood cell (WBC) count D72.828 Leukocytosis type: other Acute dehydration E86.0 Acute kidney injury N17.9 Rhabdomyolysis T79.6XXA Encounter type: initial encounter Rhabdomyolysis type: traumatic Altered mental status, unspecified altered mental status type R41.82 Altered mental status type: unspecified
[2023-08-14 14:19] LABS: RPR w(Moniotor) w/REFL Titer NON-REACTIVE (NON-REACTIVE)
[2023-08-14 14:27] LABS: Creatine Phosphokinase 13064 U/L (26-192)
[2023-08-14] MEDS: ciprofloxacin 0.3% Op Soln 2.5 mL Btl 1 DROP EYE-BOTH ×2 (18:31→20:15)
[2023-08-14] MEDS: atorvastatin 40 mg Tablet PO (20:15)
--- NOTE | 2023-08-14 20:49 | PC.NURSE ---
While completing pt shift assessment pt states I don't know why I'm here, I don't know what happened , my would never hurt me and I would never hurt him . Pt denies depression at this time, denies AVH. Pt appears depressed and anxious regarding why she is in the hospital stating I just woke up here . Pt denies use of psychiatric medications, and states that many years ago she use to be enrolled in outpt psychiatric services but is no longer. Pt awaiting psychiatry consult, one on one care and interventions continue.
[2023-08-15] VITALS (20 sets, daily range): BP systolic 98–133; BP diastolic 59–84; PULSE 74–93; RESP 16–24; TEMP 36.3–37.6; O2SAT 87–100
[2023-08-15 06:00] LABS: Basophils % 0.2 %; Eosinophils # 0.2 10^3/uL (0.0-0.8); Eosinophils % 1.5 %; Lymphocytes # 3.4 10^3/uL (0.8-4.8); Lymphocytes % 22.5 %; Mean Corpuscular HGB Conc 31.9 g/dL (30-55); Mean Corpuscular Hemoglobin 30.9 pg (27-33); Mean Corpuscular Volume 96.9 fl (85-98); Monocytes # 0.7 10^3/uL (0.2-0.9); Monocytes % 4.6 %; Neutrophils % 70.4 %; Nucleated Red Blood Cells % 0 %; Platelet Count 105 10^3/cmm (157-399); Red Blood Count 3.82 10^6/uL (3.85-5.65); Red Cell Distribution Width 15.9 % (12.1-15.1); White Blood Count 15.07 10^3/uL (3.29-11.43)
[2023-08-15] MEDS: enoxaparin 40 mg/0.4 mL Syringe SUBCUT (06:04)
[2023-08-15] MEDS: dextrose 5%-sod chloride 0.45% 1,000 ML 125 ML IV ×2 (06:04→16:01)
[2023-08-15] MEDS: pantoprazole 40 mg SDV IVP ×2 (06:05→18:14)
[2023-08-15 06:23] LABS: Anion Gap 11.2 (5-19); Blood Urea Nitrogen 23 mg/dL (6-20); Calcium 7.6 mg/dL (8.5-10.5); Carbon Dioxide 21 mmol/L (22-29); Chloride 117 mmol/L (98-107); Creatinine Clr Calc Pharmacy 71.6695; Glomerular Filtration Rate 65.8 mL/min (90-130); Glucose 112 mg/dL (65-115); Osmolality Calculated 306 mOsm/kg (285-295); Potassium 3.2 mmol/L (3.5-5.1); Sodium 146 mmol/L (136-145)
[2023-08-15 06:41] LABS: Creatine Phosphokinase 9572 U/L (26-192)
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
[2023-08-15] MEDS: potassium chloride ER 20 mEq Tablet 40 MEQ PO ×2 (10:28→13:45)
[2023-08-15] MEDS: metoprolol tartrate 25 mg Tablet PO ×2 (10:29→21:15)
[2023-08-15] MEDS: aspirin 81 mg EC Tablet PO (10:29)
[2023-08-15] MEDS: ciprofloxacin 0.3% Op Soln 2.5 mL Btl 1 DROP EYE-BOTH ×4 (10:29→21:15)
[2023-08-15] MEDS: clopidogrel 75 mg Tablet PO (10:29)
--- NOTE | 2023-08-15 16:10 | PC.NURSE ---
Pt transferred/Report Telephone and bedside report given to Shelli FLORIAN. Pt transferred to CSU via wheelchair with security. No questions or concerns at this time.
[2023-08-15] MEDS: fluoxetine 20 mg Capsule PO (18:14)
[2023-08-15 19:03] LABS: Creatine Phosphokinase 7655 U/L (26-192)
[2023-08-15] MEDS: atorvastatin 40 mg Tablet PO (21:15)
--- NOTE | 2023-08-15 21:29 | PC.NURSE ---
sister called for an update. she is not on the contacts list. when pt was asked if i could speak to her she agreed that it would be ok to talk to her. Elen is the sisters name. update and questions answered.
[2023-08-16] VITALS (9 sets, daily range): BP systolic 122–131; BP diastolic 73–84; PULSE 78–93; RESP 16–23; TEMP 36.6–37.1; O2SAT 95–97
[2023-08-16] MEDS: dextrose 5%-sod chloride 0.45% 1,000 ML 125 ML IV ×3 (00:03→18:11)
[2023-08-16 05:04] LABS: Basophils % 0.2 %; Eosinophils # 0.3 10^3/uL (0.0-0.8); Eosinophils % 2.6 %; Hematocrit 36.6 % (36-47); Lymphocytes # 2.9 10^3/uL (0.8-4.8); Lymphocytes % 22.4 %; Mean Corpuscular Hemoglobin 30.4 pg (27-33); Mean Corpuscular Volume 95.1 fl (85-98); Mean Platelet Volume 10.4 fL (7.4-10.4); Monocytes # 0.7 10^3/uL (0.2-0.9); Monocytes % 5.7 %; Neutrophils # 8.64 10^3/uL (1.8-7.7); Neutrophils % 67.9 %; Nucleated Red Blood Cells % 0 %; Platelet Count 107 10^3/cmm (157-399); Red Blood Count 3.85 10^6/uL (3.85-5.65); Red Cell Distribution Width 15.5 % (12.1-15.1); White Blood Count 12.71 10^3/uL (3.29-11.43)
[2023-08-16 05:18] LABS: Alanine Aminotransferase 104 U/L (0-33); Albumin Level 2.4 g/dL (3.5-5.2); Alkaline Phosphatase 64 U/L (35-105); Anion Gap 10.6 (5-19); Aspartate Amino Transferase 130 U/L (0-32); Blood Urea Nitrogen 12 mg/dL (6-20); Calcium 8.1 mg/dL (8.5-10.5); Carbon Dioxide 21 mmol/L (22-29); Chloride 117 mmol/L (98-107); Chol HDL Ratio 3.59 mg/dL (0.0-4.40); Cholesterol 115 mg/dL (0-200); Creatinine Clr Calc Pharmacy 80.6282; Globulin 2.6 g/dL (1.3-4.6); Glomerular Filtration Rate 75.3 mL/min (90-130); Glucose 120 mg/dL (65-115); HDL Cholesterol 32 mg/dL (60-100); LDL Cholesterol Calculated 49 mg/dL (50-129); LDL HDL Ratio 1.53 RATIO (0.00-3.22); Osmolality Calculated 301 mOsm/kg (285-295); Potassium 3.6 mmol/L (3.5-5.1); Sodium 145 mmol/L (136-145); Total Bilirubin 0.4 mg/dL (0.15-1.2); Triglycerides 171 mg/dL (0-150)
[2023-08-16 05:34] LABS: Creatine Phosphokinase 4669 U/L (26-192)
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
[2023-08-16] MEDS: fluoxetine 20 mg Capsule PO (09:37)
[2023-08-16] MEDS: aspirin 81 mg EC Tablet PO (09:37)
[2023-08-16] MEDS: metoprolol tartrate 25 mg Tablet PO ×2 (09:37→21:19)
[2023-08-16] MEDS: clopidogrel 75 mg Tablet PO (09:37)
[2023-08-16] MEDS: ciprofloxacin 0.3% Op Soln 2.5 mL Btl 1 DROP EYE-BOTH ×4 (09:38→21:19)
[2023-08-16] MEDS: pantoprazole 40 mg SDV IVP ×2 (09:38→18:10)
--- NOTE | 2023-08-16 10:21 | PC.NURSE ---
came by this morning with alannah to see the pt and get a report. He also wanted to see Dr. Duarte whom I called and notified of the 's wishes. stated that he believes the pt took 5 bottles of sleep aid medication which contained diphenhydramine. Both the hospitalist and psychologist were notified.
--- NOTE | 2023-08-16 11:11 | W.PM.NPUPNS ---
Subjective NPU Subjective: Patient presented today now outside the ICU and reporting that she had a visit from her . She continues to endorse amnesia to certain aspects of the last 48 hours and possibly beyond but continues to seem to understand the need for continued psychiatric care once she is medically cleared which we discussed is likely tomorrow. She denied any side effects to the Prozac and reports that she is eating okay. Mental Status Exam MSE Comments: This is an overweight versus obese white female in a hospital gown with limited grooming and eye contact. Head shaven secondary to lice infestation. No abnormal movements except for mild psychomotor retardation. More cooperative with exam in mild to moderate distress. Speech was decreased rate and volume with less latency of response. Mood described as okay, affect somewhat stoic and subdued. Thought process linear and less confused. Thought content: Patient denied active suicidal or homicidal ideation, there were no delusions reported or noted, she denied any auditory or visual hallucinations. Attention and concentration were limited and memory was appearing mostly unreliable but none were formally tested. She is alert and oriented to person and place. Insight, judgment and impulse control were impaired. Vitals/I&O/Wt Last Vital Signs Temp 98.1 F 08/16/23 08:00 Pulse 91 08/16/23 08:00 Resp 16 08/16/23 08:00 BP 122/73 08/16/23 08:00 Pulse Ox 97 08/16/23 08:00 O2 Del Method Room Air 08/16/23 08:00 08/15/23 08/16/23 08/16/23 22:59 06:59 14:59 Intake Total 1340 / 2340 1480 / 3820 1480 / 1480 Output Total 2210 / 2210 750 / 2960 Balance -870 / 130 730 / 860 1480 / 1480 Weight last 48 hrs Weight 75.206 kg Weight 73.17 kg Physical Exam Urinary Catheter Management: Mireles: Cath Placed During This Visit: yes Reason for Continuing Indwelling Catheter: Accurate Measurement of Urinary Output in Critically Ill Patients Urinary Catheter Date of Insertion: 08/13/23 Urinary Catheter Time of Insertion: 00:11 Data NPU 08/16/23 04:01 08/16/23 04:01 A&P Assessment and plan (1) Alcohol use disorder: (2) Suicide attempt by drug overdose: (3) Major depressive disorder, recurrent: Plan Patient is a 53-year-old white female with known history of mental health and addiction issues with past admission to psychiatric facilities and suicide attempts who presented to the ICU after being found in her home on the ground with resultant rhabdomyolysis and a suicide note. 1. Continue current medication except initiated Prozac 20 mg p.o. daily. 2. Recommend sober living treatment after discharge at the highest level of care to which the patient is willing to commit. 3. Transfer to neuropsychiatric unit when medically stable. 4. Will attempt to get collateral information. 5. Agree with 96-hour hold and we will continue to follow until transfer Attestations NPU Medical Necessity Statement*: N/A. Please see primary team note for medical necessity possible transfer to the neuropsychiatric unit tomorrow. Coding Level of Care Code Acute Code for [facility] Diagnoses Alcohol use disorder F10.90 Suicide attempt by drug overdose T50.902A Major depressive disorder, recurrent F33.9
--- NOTE | 2023-08-16 12:49 | P.PN_ITS ---
Subjective 2 Subjective: No acute overnight events noted. Seen at bedside, she feels much better today but still having low mood. spoke with and stepson this morning explained to them about the medical condition and plan of care. They agreed for inpatient psych unit placement once medically cleared. Medications: Reviewed: Yes Vitals/I&O/Wt Last Vital Signs Temp 98.8 F 08/16/23 11:31 Pulse 78 08/16/23 11:31 Resp 16 08/16/23 11:31 BP 125/80 08/16/23 11:31 Pulse Ox 96 08/16/23 11:31 O2 Del Method Room Air 08/16/23 11:31 08/15/23 08/16/23 08/16/23 22:59 06:59 14:59 Intake Total 1340 / 2340 1480 / 3820 1720 / 1720 Output Total 2210 / 2210 750 / 2960 1050 / 1050 Balance -870 / 130 730 / 860 670 / 670 Weight last 48 hrs Weight 75.206 kg Weight 73.17 kg Physical Exam 2 Narrative: General: Alert awake and oriented x 3 ,multiple bruises over body, head was shaved due to pediculosis, received second dose of permethrin in ICU. HEENT: PERRLA, pupils bilaterally equal and reactive, pallors not present Chest: Normal vesicular breath sounds, no added sounds, equal good air entry bilaterally CVS: S1-S2 regular, no murmurs, no tachycardia, no gallops, no rubs Abdomen: Soft, nontender, no organomegaly, bowel sounds present Neuro: moves all extremities Urinary Catheter Management: Mireles: Cath Placed During This Visit: yes Reason for Continuing Indwelling Catheter: Accurate Measurement of Urinary Output in Critically Ill Patients Urinary Catheter Date of Insertion: 08/13/23 Urinary Catheter Time of Insertion: 00:11 Data 08/16/23 04:01 08/16/23 04:01 A&P Assessment and plan (1) Elevated troponin: Etiology, type II CT is a possibility. However in view of the abnormal EKG, an acute coronary event cannot be excluded. Her LV ejection fraction is normal. She has no chest pain. No acute ischemic changes in the EKG. May be treated with beta-abdoulaye, aspirin and Plavix. I may discontinue the heparin. Keep her on subcu Lovenox for DVT prophylaxis. (2) Leukocytosis: Qualifiers: Leukocytosis type: other Qualified Code(s): D72.828 - Other elevated white blood cell count (3) Acute dehydration: (4) Acute kidney injury: (5) Rhabdomyolysis: Qualifiers: Encounter type: initial encounter Rhabdomyolysis type: traumatic Qualified Code(s): T79.6XXA - Traumatic ischemia of muscle, initial encounter (6) Altered mental status: Qualifiers: Altered mental status type: unspecified Qualified Code(s): R41.82 - Altered mental status, unspecified (7) Multiple injuries: (8) Acute renal failure: Qualifiers: Acute renal failure type: unspecified Qualified Code(s): N17.9 - Acute kidney failure, unspecified (9) Pediculosis: Treated with (10) Thrombocytopenia: Plan 53-year-old lady brought to the emergency room today in unclear circumstances and Noted to have multiple bruises Altered mental status may be related to encephalopathy vs acute delirium. Likely secondary to alcohol intoxication versus drug overdose resolved Thrombocytopenia-likely due to heparin induced/ with concurrent alcohol intoxiaction She received heparin drip for 2 days will discontinue SQ lovenox for now, no active bleeding at this time. monitor CBC Cardiovascular-follow up cardiology once medically stable. Continue aspirin 81 mg and atorvastatin 40 mg. As per cardiology, may consider doing a Myocardial perfusion imaging given Type 2 myocardial injury. Metoprolol 25 mg p.o. Twice daily Plavix 300 mg p.o. today followed by 75 mg p.o. daily 2D echo done which showed Normal left ventricular size and systolic function, EF 57%no regional wall motion abnormalities. . Trace aortic valve regurgitation. Trace to mild tricuspid valve regurgitation. Estimated pulmonary artery peak systolic pressure within normal limits. There is no pericardial effusion. Respiratory-stable Nephrology-continue IV fluids D5 half NS at 125 MLS per hour for rhabdomyolysis. CK trending down to 4600 ID-leukocytosis likely reactive which is improving Ciprofloxacin eyedrops for acute conjunctivitis GI- LFT's trending down elevation of transaminases likely due to alcohol intoxication. Psych-continue 1 is to 1 sitter until seen by psychiatry follow up Psychiatry consult- Dr Duarte, Tx to NPU once medically stable As needed Haldol for agitation if needed Regular diet DVT prophylaxis with SCD GI prophylaxis with IV Protonix 40 mg twice daily She is full code for now Attestations 2 Medical Necessity Statement*: She needs continued hospitalization for IV fluids for acute rhabdomyolysis monitoring for reactive leukocytosis thrombocytopenia and monitoring for suicidal ideation. Time Spent in Patient Care: 15 minutes Coding Level of Care Code Acute Code for [facility] Diagnoses Elevated troponin R79.89 Other elevated white blood cell (WBC) count D72.828 Leukocytosis type: other Acute dehydration E86.0 Acute kidney injury N17.9 Rhabdomyolysis T79.6XXA Encounter type: initial encounter Rhabdomyolysis type: traumatic Altered mental status, unspecified altered mental status type R41.82 Altered mental status type: unspecified Multiple injuries T07.XXXA Acute renal failure N17.9 Acute renal failure type: unspecified Pediculosis B85.2 Thrombocytopenia D69.6 Time Spent (min) 15
[2023-08-16] MEDS: atorvastatin 40 mg Tablet PO (21:19)
[2023-08-17] VITALS (9 sets, daily range): BP systolic 115–139; BP diastolic 65–83; PULSE 81–92; RESP 14–21; TEMP 36.4–36.8; O2SAT 94–98
[2023-08-17] MEDS: dextrose 5%-sod chloride 0.45% 1,000 ML 125 ML IV ×3 (02:16→20:00)
[2023-08-17 04:33] LABS: Basophils % 0.2 %; Eosinophils # 0.4 10^3/uL (0.0-0.8); Hematocrit 35.5 % (36-47); Lymphocytes # 2.5 10^3/uL (0.8-4.8); Lymphocytes % 20.5 %; Mean Corpuscular HGB Conc 32.7 g/dL (30-55); Mean Corpuscular Hemoglobin 30.6 pg (27-33); Mean Corpuscular Volume 93.7 fl (85-98); Mean Platelet Volume 10.1 fL (7.4-10.4); Monocytes # 0.9 10^3/uL (0.2-0.9); Monocytes % 7.3 %; Neutrophils % 67.9 %; Nucleated Red Blood Cells % 0 %; Platelet Count 111 10^3/cmm (157-399); Red Blood Count 3.79 10^6/uL (3.85-5.65); Red Cell Distribution Width 15.1 % (12.1-15.1); White Blood Count 12.37 10^3/uL (3.29-11.43)
[2023-08-17 05:04] LABS: Creatine Phosphokinase 2448 U/L (26-192)
[2023-08-17] MEDS: pantoprazole 40 mg SDV IVP ×2 (05:54→18:09)
[2023-08-17 07:57] LABS: Anion Gap 13.5 (5-19); Blood Urea Nitrogen 8 mg/dL (6-20); Calcium 7.9 mg/dL (8.5-10.5); Carbon Dioxide 21 mmol/L (22-29); Chloride 111 mmol/L (98-107); Creatinine Clr Calc Pharmacy 93.9476; Glomerular Filtration Rate 87.9 mL/min (90-130); Glucose 145 mg/dL (65-115); Osmolality Calculated 295 mOsm/kg (285-295); Potassium 3.5 mmol/L (3.5-5.1); Sodium 142 mmol/L (136-145)
[2023-08-17] MEDS: fluoxetine 20 mg Capsule PO (08:30)
[2023-08-17] MEDS: clopidogrel 75 mg Tablet PO (08:30)
[2023-08-17] MEDS: aspirin 81 mg EC Tablet PO (08:30)
[2023-08-17] MEDS: ciprofloxacin 0.3% Op Soln 2.5 mL Btl 1 DROP EYE-BOTH ×4 (08:30→21:47)
[2023-08-17] MEDS: metoprolol tartrate 25 mg Tablet PO ×2 (09:02→21:44)
--- NOTE | 2023-08-17 09:14 | PC.NURSE ---
Mireles catheter is removed per providers order. Patient tolerated well.
--- NOTE | 2023-08-17 09:56 | P.PN_ITS ---
Documented by User: MAICOL Beth STDSALBADOR 08/17/23 11:20 Subjective 2 Subjective: Ms. Vidales reports feeling better this morning, no acute events overnight. She reports she is able to converse appropriately, eat and drink adequately, and ambulate appropriately. She reports feeling back to her home baseline. She reports her mood is better today, denies any audiovisual hallucinations, reports sleeping well overnight. She is aware that she will be following up with psychiatry today. Medications: Reviewed: Yes Medication Review Details: Current Medications Artificial Tears (Artificial Tears Op Soln 15 Ml Btl) 1 drop EYE-BOTH Q4H PRN PRN Reason: DRY EYE(S) Aspirin (Aspirin 81 Mg Ec Tablet) 81 mg PO DAILY [facility] Last Admin: 08/14/23 08:01 Dose: 81 mg Atorvastatin Calcium (Atorvastatin 40 Mg Tablet) 40 mg PO BEDTIME [facility] Last Admin: 08/13/23 21:34 Dose: 40 mg Ciprofloxacin HCl (Ciprofloxacin 0.3% Op Soln 2.5 Ml Btl) 1 drop EYE-BOTH QID [facility]; Protocol Last Admin: 08/14/23 08:01 Dose: Not Given Enoxaparin Sodium (Enoxaparin 40 Mg/0.4 Ml Syringe) 40 mg SUBCUT Q24H [facility] Last Admin: 08/14/23 06:22 Dose: 40 mg Haloperidol Lactate (Haloperidol Inj 5 Mg/Ml Inj 1 Ml) 2 mg IM Q4H PRN PRN Reason: prn Dextrose/Sodium Chloride (Dextrose 5%-Sod Chloride 0.45%) 1,000 mls @ 125 mls/hr IV .Q8H [facility] Last Admin: 08/14/23 02:15 Dose: 125 mls/hr Metoprolol Tartrate (Metoprolol Tartrate 25 Mg Tablet) 25 mg PO BID@0900,2100 [facility] Last Admin: 08/14/23 08:01 Dose: 25 mg Pantoprazole Sodium (Pantoprazole 40 Mg Sdv) 40 mg IVP Q12H [facility] Last Admin: 08/14/23 06:22 Dose: 40 mg Vitals/I&O/Wt Last Vital Signs Temp 97.5 F L 08/17/23 07:30 Pulse 85 08/17/23 07:30 Resp 18 08/17/23 07:30 BP 135/80 08/17/23 07:30 Pulse Ox 97 08/17/23 07:30 O2 Del Method Room Air 08/17/23 07:30 08/16/23 08/17/23 08/17/23 22:59 06:59 14:59 Intake Total 1600 / 3320 1000 / 4320 240 / 240 Output Total 3350 / 4400 1450 / 5850 550 / 550 Balance -1750 / -1080 -450 / -1530 -310 / -310 Weight last 48 hrs Weight 168 lb Weight 165 lb 12.8 oz Physical Exam 2 Narrative: General: Comfortable appearing female resting in bed, conversing appropriately, alert and oriented, speech appropriate, normal facial affect. HEENT: Head recently shaven, however atraumatic and normocephalic to visual inspection, PERRL, no scleral icterus or injection noted, neck supple no thyromegaly or lymphadenopathy noted. CV: Normal rate and rhythm, S1 and S2 noted, no murmurs rubs or gallops noted. Pulm: Lungs clear to auscultation bilaterally. GI: Abdomen soft, nontender, bowel sounds normal to auscultation. : Mireles in place this morning?clear yellow liquid, will be removing later today. Skin: Multiple bruises on body. Left lower extremity shows erythema, it is tender to palpation, over the entirety of the anterior thigh, and abrasions on shins. Extremities: No edema noted in bilateral lower extremities. Urinary Catheter Management: Mireles: Cath Placed During This Visit: yes, but has since been removed by the nurse Reason for Continuing Indwelling Catheter: Accurate Measurement of Urinary Output in Critically Ill Patients Urinary Catheter Date of Insertion: 08/13/23 Urinary Catheter Time of Insertion: 00:11 Date Urinary Catheter Removed: 08/17/23 Time Urinary Catheter Discontinued: 08:30 Data 08/17/23 04:26 08/17/23 04:26 Other Labs: Laboratory Last Values WBC 15.09 10^3/uL (3.29-11.43) H 08/14/23 03:44 RBC 4.09 10^6/uL (3.85-5.65) 08/14/23 03:44 Hgb 12.70 g/dL (11.27-16.99) 08/14/23 03:44 Hct 39.1 % (36-47) 08/14/23 03:44 MCV 95.6 fl (85-98) 08/14/23 03:44 MCH 31.1 pg (27-33) 08/14/23 03:44 MCHC 32.5 g/dL (30-55) 08/14/23 03:44 RDW 16.0 % (12.1-15.1) H 08/14/23 03:44 Plt Count 125 10^3/cmm (157-399) L D 08/14/23 03:44 MPV 9.7 fL (7.4-10.4) 08/14/23 03:44 Neut % (Auto) 77.8 % 08/14/23 03:44 Lymph % (Auto) 16.6 % 08/14/23 03:44 [place] % (Auto) 4.8 % 08/14/23 03:44 Eos % (Auto) 0.2 % 08/14/23 03:44 Baso % (Auto) 0.2 % 08/14/23 03:44 Neut # (Auto) 11.75 10^3/uL (1.8-7.7) H 08/14/23 03:44 Lymph # (Auto) 2.5 10^3/uL (0.8-4.8) 08/14/23 03:44 [place] # (Auto) 0.7 10^3/uL (0.2-0.9) 08/14/23 03:44 Eos # (Auto) 0.0 10^3/uL (0.0-0.8) 08/14/23 03:44 Baso # (Auto) 0.0 10^3/uL (0.0-0.1) 08/14/23 03:44 Nucleated RBC % (auto) 0 % 08/14/23 03:44 Nucleated RBCs # 0.0 /100WBC 08/14/23 03:44 APTT 40.5 SECONDS (23.9-36.7) H 08/13/23 21:57 Specimen Type Arterial 08/12/23 18:26 Sample Site Radial, right 08/12/23 18:26 ABG pH 7.38 (7.35-7.45) 08/12/23 18:26 ABG pCO2 25.0 mmHg (35-45) L 08/12/23 18:26 ABG pO2 77.6 mmHg (80.0-100.0) L 08/12/23 18:26 ABG PO2/FiO2 Ratio 0 08/12/23 18:26 ABG HCO3 14.9 mmol/L (22-26) L 08/12/23 18:26 ABG O2 Saturation 96.0 08/12/23 18:26 ABG Base Excess -7.8 mmol/L (-2.0-2.0) L 08/12/23 18:26 Vikram Test Pos 08/12/23 18:26 A-a O2 Gradient 5.1 mmHg (5-10) 08/12/23 18:26 Hematocrit 57.6 % (37-47) H 08/12/23 18:26 Hgb O2 Saturation 94.8 % (95-100) L 08/12/23 18:26 Carboxyhemoglobin 1.0 %THgb (0.4-20.1) 08/12/23 18:26 Methemoglobin 0.3 % (0.4-1.5) L 08/12/23 18:26 Total Hemoglobin 18.8 g/dL (12-16) H 08/12/23 18:26 Sodium 153.0 mmol/L (131-143) H 08/12/23 18:26 Potassium 4.3 mmol/L (3.5-5.0) 08/12/23 18:26 Glucose 172.0 mg/dL (70-115) H 08/12/23 18:26 Ionized Calcium 1.1 mmol/L (1.1-1.4) 08/12/23 18:26 O2 Delivery Device Room air 08/12/23 18:26 FiO2 21.0 % 08/12/23 18:26 Veterinary Assistant ID Tera 08/12/23 18:26 Sodium 150 mmol/L (136-145) H 08/14/23 03:44 Potassium 3.6 mmol/L (3.5-5.1) 08/14/23 03:44 Chloride 120 mmol/L (98-107) H 08/14/23 03:44 Carbon Dioxide 21 mmol/L (22-29) L 08/14/23 03:44 Anion Gap 12.6 (5-19) 08/14/23 03:44 BUN 54 mg/dL (6-20) H 08/14/23 03:44 Creatinine 1.7 mg/dL (0.5-0.9) H 08/14/23 03:44 GFR Calculation 31.6 mL/min (90-130) L 08/14/23 03:44 Glucose 122 mg/dL (65-115) H 08/14/23 03:44 Estimat Average Glucose 108 08/13/23 01:36 Hemoglobin A1c 5.4 % (4.0-6.0) 08/13/23 01:36 Calculated Osmolality 326 mOsm/kg (285-295) H 08/14/23 03:44 Lactic Acid 3.4 mmol/L (0.5-2.2) H 08/12/23 18:26 Lactic Acid (Sepsis) 2.7 mmol/L (0.5-2.2) H 08/12/23 21:55 Calcium 7.6 mg/dL (8.5-10.5) L 08/14/23 03:44 Magnesium 3.9 mg/dL (1.7-2.3) H 08/12/23 18:26 Total Bilirubin 0.5 mg/dL (0.15-1.2) 08/14/23 03:44 AST 216 U/L (0-32) H 08/14/23 03:44 ALT 131 U/L (0-33) H 08/14/23 03:44 Alkaline Phosphatase 63 U/L (35-105) 08/14/23 03:44 Ammonia 21 umol/L (11-51) 08/12/23 18:26 Creatine Kinase 49948 U/L (26-192) H* 08/14/23 03:44 Troponin T 5th Gen ng/L 672 ng/L (0-10) H* 08/13/23 14:57 Troponin T Baseline 585 ng/L (0-10) H* 08/12/23 23:40 Troponin T 120 Minute 620.3 ng/L (0-10) H 08/13/23 01:36 Delta Troponin T 35.3 ABS# (0-10) H* 08/13/23 01:36 Troponin T Hi Sens 6Hr 679.4 ng/L (0-10) H 08/13/23 05:47 Troponin T Hi Sens 6Hr Delta 94.4 ng/L (0-12) H* 08/13/23 05:47 C-Reactive Protein 154.2 mg/L (0.0-4.9) H 08/13/23 01:36 Total Protein 5.3 g/dL (6.6-8.7) L 08/14/23 03:44 Albumin 2.5 g/dL (3.5-5.2) L 08/14/23 03:44 Globulin 2.8 g/dL (1.3-4.6) 08/14/23 03:44 Triglycerides 420 mg/dL (0-150) H 08/13/23 01:36 Cholesterol 214 mg/dL (0-200) H 08/13/23 01:36 LDL Cholesterol Direct 86 mg/dL (0-100) 08/13/23 01:36 LDL Cholesterol, Calc Not Reportable 08/13/23 01:36 HDL Cholesterol 42 mg/dL (60-100) L 08/13/23 01:36 LDL/HDL Ratio Not Reportable 08/13/23 01:36 Cholesterol/HDL Ratio 5.10 mg/dL (0.0-4.40) H 08/13/23 01:36 Lipase 47 U/L (13-60) 08/12/23 18:26 Procalcitonin 0.80 ng/mL (0-0.5) H 08/13/23 01:36 TSH 4.80 uIU/mL (0.27-4.20) H 08/13/23 05:47 Urine Color Yellow (Yellow) 08/12/23 18:45 Urine Appearance Sl hazy (CLEAR) A 08/12/23 18:45 Urine pH 5 (5-7) 08/12/23 18:[address] [place] 1.030 (1.005-1.030) 08/12/23 18:45 Urine Protein 1+ (Negative) H 08/12/23 18:45 Urine Glucose (UA) Norm (Normal) 08/12/23 18:45 Urine Ketones Negative (Negative) 08/12/23 18:45 Urine Blood 3+ (Negative) H 08/12/23 18:45 Urine Nitrate Negative (Negative) 08/12/23 18:45 Urine Bilirubin Neg (Negative) 08/12/23 18:45 Urine Urobilinogen Norm mg/dL (Negative) 08/12/23 18:45 Ur Leukocyte Esterase Negative (Negative) 08/12/23 18:45 Urine RBC 0-4 /hpf (0-2) H 08/12/23 18:45 Urine WBC 0-4 /hpf (0-5) H 08/12/23 18:45 Ur Squamous Epith Cells 0-4 /hpf (0-5) H 08/12/23 18:45 Amorphous Sediment Trace /hpf 08/12/23 18:45 Urine Bacteria Trace /hpf (NONE) 08/12/23 18:45 Urine Mucus Trace /hpf 08/12/23 18:45 Salicylates < 0.3 mg/dL (3-10) L 08/12/23 18:26 Urine Opiates Screen Negative ng/mL (Negative) 08/12/23 18:45 Acetaminophen < 5.0 ug/mL (10-30) L 08/12/23 18:26 Ur Barbiturates Screen Negative ng/mL (Negative) 08/12/23 18:45 Ur Phencyclidine Scrn Negative ng/mL (Negative) 08/12/23 18:45 Ur Amphetamines Screen Negative ng/mL (Negative) 08/12/23 18:45 U Benzodiazepines Scrn Negative ng/mL (Negative) 08/12/23 18:45 Urine Cocaine Screen Negative ng/mL (Negative) 08/12/23 18:45 U Marijuana (THC) Screen Negative ng/mL (Negative) 08/12/23 18:45 Ethyl Alcohol < 10 mg/dL (0-10) 08/12/23 18:26 Serum Ketones Negative (Negative) 08/12/23 18:26 Adenovirus (PCR) Not detected (NOT DETECT) 08/13/23 06:30 C. pneumoniae DNA (PCR) Not detected (NOT DETECT) 08/13/23 06:30 Coronavirus 229E (PCR) Not detected (NOT DETECT) 08/13/23 06:30 Hepatitis A IgM Ab Non-reactive (Nonreactive) 08/13/23 01:36 Hep Bs Antigen Non-reactive (Nonreactive) 08/13/23 01:36 Hep Bs Antibody < 3.5 (11.5-1000) L 08/13/23 01:36 Hep B Core Total Ab Non-reactive (Nonreactive) 08/13/23 01:36 Hepatitis C Antibody Non-reactive (Nonreactive) 08/13/23 01:36 HIV 1&2 Ab & HIV 1 Ag Non-reactive (Non-Reactiv) 08/13/23 01:36 HIV 1&2 Antibody Non-reactive (Non-Reactiv) 08/13/23 01:36 Human Metapneumovir PCR Not detected (NOT DETECT) 08/13/23 06:30 Influenza A (H1) PCR Not detected (NOT DETECT) 08/13/23 06:30 Influ A (H1/09) PCR Not detected (NOT DETECT) 08/13/23 06:30 Influenza A (H3) PCR Not detected (NOT DETECT) 08/13/23 06:30 Influenza Type A (PCR) Not detected (NOT DETECT) 08/13/23 06:30 Influenza Type B (PCR) Not detected (NOT DETECT) 08/13/23 06:30 M. pneumoniae (PCR) Not detected (NOT DETECT) 08/13/23 06:30 Parainfluenza 1 (PCR) Not detected (NOT DETECT) 08/13/23 06:30 Parainfluenza 2 (PCR) Not detected (NOT DETECT) 08/13/23 06:30 Parainfluenza 3 (PCR) Not detected (NOT DETECT) 08/13/23 06:30 Parainfluenza 4 (PCR) Not detected (NOT DETECT) 08/13/23 06:30 RSV Type A (PCR) Not detected (NOT DETECT) 08/13/23 06:30 RSV Type B (PCR) Not detected (NOT DETECT) 08/13/23 06:30 Entero/Rhino (PCR) Not detected (NOT DETECT) 08/13/23 06:30 SARS-CoV-2 (PCR) Not detected (NOT DETECT) 08/13/23 06:30 EKG performed in the ED shows sinus tachycardia. Head CT: No intracranial abnormalities noted. Chest x-ray: Possible pneumonia in left lung base. Abdominal pelvic CT: Cholelithiasis Micro: Microbiology 08/12/23 19:54 Blood Culture - Preliminary Blood NEGATIVE TO DATE 08/12/23 19:50 Blood Culture - Preliminary Blood NEGATIVE TO DATE 08/12/23 18:45 Bacterial Antigens - Final Urine,Clean Catch A&P Assessment and plan (1) Suicide attempt by drug overdose: Patient has a history of depression and substance abuse with previous admissions to psychiatric facilities and suicide attempts. She was found down at home brought in the ED with rhabdomyolysis. She has altered mental status possibly due to delirium or encephalopathy. CT performed in the ED shows no abnormalities. Urine drug screen performed in the ED shows no illicit substances, negative for salicylates, or acetaminophen. Psychiatry has been consulted, consult appreciated, they will be admitting her to neuropsych and following up with her after medical stabilization. (2) Altered mental status: Patient admitted with altered mental status, possible etiologies include delirium versus sepsis versus OD. Continue IV fluid. Continue Zosyn?possible infection or pneumonia. Continue vancomycin?possible infection or pneumonia. Blood cultures negative. Qualifiers: Altered mental status type: unspecified Qualified Code(s): R41.82 - Altered mental status, unspecified (3) Acute dehydration: Patient found down at home, with elevated CK. CK trending down, however still greater than 2000. Continue IV fluids, D5 one half NS at 125 mL/hr. (4) Rhabdomyolysis: Patient found down at home for unknown amount of time. Her CK has been elevated, but [place]. [place] [address] 08/16 - CK: 2448 Continue IV fluids, D5 1/2 NS at 120 mL/h May consider discontinuing if follow-up CK is less than 2000, patient able to eat and drink adequately today. Qualifiers: Encounter type: initial encounter Rhabdomyolysis type: traumatic Qualified Code(s): T79.6XXA - Traumatic ischemia of muscle, initial encounter (5) Elevated troponin: Patient had elevated troponin. Troponin: 620 Troponin 6-hour: 24.4 Cardiology consulted, appreciated EKG conducted: Recent septal myocardial infarction Follow-up EKG shows sinus tachycardia with continued myocardial infarct findings present Echocardiogram shows 57% EF Heparin was initiated, has been discontinued since then continue aspirin 81 mg Continue atorvastatin 40 mg Metoprolol 25 mg p.o. twice daily per cardiology recommendations Continue Plavix 75 mg p.o. daily (6) Alcohol use disorder: Patient has a history of substance use disorder, and psychiatric history. Continue to follow with psychiatry after discharge. Consider substance abuse rehab. (7) Major depressive disorder, recurrent: Patient has a history of substance use disorder and psychiatric history. Continue to follow with psychiatry after discharge. Psychiatry awaiting medical stabilization for admit Neuropsych Unit (8) Pediculosis: Patient presents to the ED with head lice. Head shaven. Treated with permethrin. (9) Multiple injuries: (10) Acute kidney injury: Patient found down at home for unknown amount of time. Her CK has been elevated, but [place] [address] 08/16 - CK: 2448 Admitting creatinine: 3.7 08/16?creatinine: 0.7 Continue IV fluids, D5 1/2 NS at 120 mL/h May consider discontinuing if follow-up CK is less than 2000, patient able to eat and drink adequately today. (11) Leukocytosis: Qualifiers: Leukocytosis type: other Qualified Code(s): D72.828 - Other elevated white blood cell count (12) Thrombocytopenia: Coding Level of Care Code 61149 Diagnoses Suicide attempt by drug overdose T50.902A Altered mental status, unspecified altered mental status type R41.82 Altered mental status type: unspecified Acute dehydration E86.0 Rhabdomyolysis T79.6XXA Encounter type: initial encounter Rhabdomyolysis type: traumatic Elevated troponin R79.89 Alcohol use disorder F10.90 Major depressive disorder, recurrent F33.9 Pediculosis B85.2 Multiple injuries T07.XXXA Acute kidney injury N17.9 Other elevated white blood cell (WBC) count D72.828 Leukocytosis type: other Thrombocytopenia D69.6 Time Spent (min) 25 Documented by User: Jose Luis Burks MD 08/17/23 12:54 Physical Exam 2 Urinary Catheter Management: Mireles: Cath Placed During This Visit: yes, but has since been removed by the nurse Data 08/17/23 04:26 08/17/23 04:26 A&P Assessment and plan (1) Suicide attempt by drug overdose: (2) Altered mental status: Consistent with encephalopathy. Overall this appears resolved today. Qualifiers: Altered mental status type: unspecified Qualified Code(s): R41.82 - Altered mental status, unspecified (3) Acute dehydration: Patient found down at home, with elevated CK. Dehydration resolved CK trending down, however still greater than 2000. Continue IV fluids, D5 one half NS at 125 mL/hr. Probable safe to go to Neuropsych Unit tomorrow. (4) Rhabdomyolysis: Slow improvement, likely transfer to [facility] tomorrow. Qualifiers: Encounter type: initial encounter Rhabdomyolysis type: traumatic Qualified Code(s): T79.6XXA - Traumatic ischemia of muscle, initial encounter (5) Elevated troponin: Troponin was elevated. Likely type II elevation. Likely secondary to massively increased CK. Cardiology consulted, appreciated. They are considering nuclear stress test outpatient, or perhaps inpatient. Echocardiogram shows 57% EF Continue aspirin, statin, beta-abdoulaye, Plavix (6) Alcohol use disorder: (7) Major depressive disorder, recurrent: (8) Pediculosis: (9) Multiple injuries: Resolving (10) Acute kidney injury: (11) Leukocytosis: Resolving Qualifiers: Leukocytosis type: other Qualified Code(s): D72.828 - Other elevated white blood cell count (12) Thrombocytopenia: Stable Plan Other medical problems as outlined in past medical history. Attestations 2 Medical Necessity Statement*: Requires continued hospitalization secondary to rhabdomyolysis with elevated CK with concern for potential renal failure. Diagnoses Suicide attempt by drug overdose T50.902A Altered mental status, unspecified altered mental status type R41.82 Altered mental status type: unspecified Acute dehydration E86.0 Rhabdomyolysis T79.6XXA Encounter type: initial encounter Rhabdomyolysis type: traumatic Elevated troponin R79.89 Alcohol use disorder F10.90 Major depressive disorder, recurrent F33.9 Pediculosis B85.2 Multiple injuries T07.XXXA Acute kidney injury N17.9 Other elevated white blood cell (WBC) count D72.828 Leukocytosis type: other Thrombocytopenia D69.6 Time Spent (min) 25
--- NOTE | 2023-08-17 12:54 | ECG_ITS ---
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 Interpretive Statements NAME OF STUDY: LEXISCAN SESTAMIBI STRESS TEST INDICATION: Elevated Troponin I PROCEDURE: At the baseline, the EKG revealed normal sinus rhythm with a poor R wave progression. Nonspecific T wave changes in the anterolateral leads.. The baseline heart was 89 bpm with a blood pressue of 135/67 mm of Hg Lexiscan was infused over a period of 20 seconds. A total of 0.4 milligrams of Lexiscan was infused. The stress phase was continued for a total of 5 minutes. Heart rate at the end of the stress phase was 105 bpm with a blood pressure 124/59 mm of Hg. The EKG at the peak infusion revealed no significant changes. Sestamibi was injected 20 seconds after the Lexiscan infusion. Heart rate at the end of the recovery phase was 103 bpm with a blood pressure of 130/65 mm of Hg. CONCLUSION: 1. No significant EKG changes with the LexiScan infusion 2. No LexiScan induced chest pain or cardiac arrhythmia 3. Normal blood pressure and heart rate response 4. Sestamibi/sestamibi perfusion scan pending; see separate report. Electronically Signed On 08-24-2023 23:41:46 CDT by Narda Ramírez M.D. [email or web address]
--- NOTE | 2023-08-17 15:08 | PC.NURSE ---
Patient walked, with walker, to shower room. Patient took a shower with minimal assistance. Patient walked back to room and telemetry is applied. Patient did not have any weakness and vitals remained stable.
--- NOTE | 2023-08-17 15:20 | PC.NURSE ---
Patient's , Denis Floyd, called, wanting an update and then talked with patient today. Patient talked with and remained calm and apologized a couple times during the conversation.
--- NOTE | 2023-08-17 16:13 | P.NPUPN_ITS ---
Subjective NPU 2 Subjective: Patient presented today reporting that she is doing okay. She reports that she had had an opportunity to speak to her and some other individual whom she trusts and has a better picture or understanding of what happened secondary to their report. She reports feeling amazed that she was out of control at that level. We discussed the treatment team's plan for a stress test in the morning and then a plan to transfer to the neuropsychiatric unit afterwards. She denies any side effects to the medication. Mental Status Exam 2 MSE Comments: This is an overweight versus obese white female in a hospital gown with limited grooming and eye contact. Head shaven secondary to lice infestation. No abnormal movements except for mild psychomotor retardation. More cooperative with exam in mild to moderate distress. Speech was decreased rate and volume with less latency of response. Mood described as okay, affect somewhat stoic and subdued. Thought process linear and less confused. Thought content: Patient denied active suicidal or homicidal ideation, there were no delusions reported or noted, she denied any auditory or visual hallucinations. Attention and concentration were limited and memory was appearing mostly unreliable but none were formally tested. She is alert and oriented to person and place. Insight, judgment and impulse control were impaired. Vitals/I&O/Wt Last Vital Signs Temp 97.9 F 08/17/23 16:00 Pulse 91 08/17/23 16:00 Resp 18 08/17/23 16:00 BP 127/83 08/17/23 16:00 Pulse Ox 98 08/17/23 16:00 O2 Del Method Room Air 08/17/23 16:00 08/17/23 08/17/23 08/17/23 06:59 14:59 22:59 Intake Total 1000 / 4320 1480 / 1480 Output Total 1450 / 5850 550 / 550 Balance -450 / -1530 930 / 930 Weight last 48 hrs Weight 76.204 kg Weight 75.206 kg Physical Exam 2 Urinary Catheter Management: Mireles: Cath Placed During This Visit: yes, but has since been removed by the nurse Reason for Continuing Indwelling Catheter: Accurate Measurement of Urinary Output in Critically Ill Patients Urinary Catheter Date of Insertion: 08/13/23 Urinary Catheter Time of Insertion: 00:11 Date Urinary Catheter Removed: 08/17/23 Time Urinary Catheter Discontinued: 08:30 Data NPU 08/18/23 04:47 08/18/23 04:47 A&P Assessment and plan (1) Alcohol use disorder: (2) Suicide attempt by drug overdose: (3) Major depressive disorder, recurrent: Plan Patient is a 53-year-old white female with known history of mental health and addiction issues with past admission to psychiatric facilities and suicide attempts who presented to the ICU after being found in her home on the ground with resultant rhabdomyolysis and a suicide note. 1. Continue current medication except initiated Prozac 20 mg p.o. daily. 2. Recommend sober living treatment after discharge at the highest level of care to which the patient is willing to commit. 3. Transfer to neuropsychiatric unit when medically stable. 4. Will attempt to get collateral information. 5. Agree with 96-hour hold and we will continue to follow until transfer Attestations NPU 2 Medical Necessity Statement*: N/A. Please see primary team note for medical necessity possible transfer to the neuropsychiatric unit tomorrow. Coding Level of Care Code Acute Code for [facility] Diagnoses Alcohol use disorder F10.90 Suicide attempt by drug overdose T50.902A Major depressive disorder, recurrent F33.9
--- NOTE | 2023-08-17 16:42 | PC.NURSE ---
Patient's sister is transferred to patients room phone, Patient talked with her for 15 minutes.
--- NOTE | 2023-08-17 18:05 | PC.NURSE ---
Patient has walked, with walker, to the patient bathroom several times during day shift with standby assist.
--- NOTE | 2023-08-17 21:24 | P.PN_ITS ---
Subjective 2 Subjective: The patient seems to be feeling much better.. No chest pain or chest tightness. No unusual shortness of breath. No new symptoms. Medications: Medication Review Details: Current Medications Artificial Tears (Artificial Tears Op Soln 15 Ml Btl) 1 drop EYE-BOTH Q4H PRN PRN Reason: DRY EYE(S) Aspirin (Aspirin 81 Mg Ec Tablet) 81 mg PO DAILY [facility] Last Admin: 08/17/23 08:30 Dose: 81 mg Atorvastatin Calcium (Atorvastatin 40 Mg Tablet) 40 mg PO BEDTIME [facility] Last Admin: 08/16/23 21:19 Dose: 40 mg Ciprofloxacin HCl (Ciprofloxacin 0.3% Op Soln 2.5 Ml Btl) 1 drop EYE-BOTH QID [facility]; Protocol Last Admin: 08/17/23 17:14 Dose: 1 drop Clopidogrel Bisulfate (Clopidogrel 75 Mg Tablet) 75 mg PO DAILY [facility] Last Admin: 08/17/23 08:30 Dose: 75 mg Fluoxetine HCl (Fluoxetine 20 Mg Capsule) 20 mg PO DAILY [facility] Last Admin: 08/17/23 08:30 Dose: 20 mg Dextrose/Sodium Chloride (Dextrose 5%-Sod Chloride 0.45%) 1,000 mls @ 125 mls/hr IV .Q8H [facility] Last Admin: 08/17/23 20:00 Dose: 125 mls/hr Metoprolol Tartrate (Metoprolol Tartrate 25 Mg Tablet) 25 mg PO BID@0900,2100 [facility] Last Admin: 08/17/23 09:02 Dose: 25 mg Pantoprazole Sodium (Pantoprazole 40 Mg Sdv) 40 mg IVP Q12H [facility] Last Admin: 08/17/23 18:09 Dose: 40 mg Vitals/I&O/Wt Last Vital Signs Temp 98.2 F 08/17/23 20:33 Pulse 88 08/17/23 20:33 Resp 21 H 08/17/23 20:33 BP 139/83 08/17/23 20:33 Pulse Ox 97 08/17/23 20:33 O2 Del Method Room Air 08/17/23 20:33 08/17/23 08/17/23 08/17/23 06:59 14:59 22:59 Intake Total 1000 / 4320 1480 / 1480 1240 / 2720 Output Total 1450 / 5850 550 / 550 Balance -450 / -1530 930 / 930 1240 / 2170 Weight last 48 hrs Weight 168 lb Weight 165 lb 12.8 oz Physical Exam 2 Narrative: GENERAL: The patient is alert and oriented to person and place. Not in any acute distress. HEENT: No significant pallor, icterus or lymphadenopathy.Oral cavity: There are no mucous membrane lesions. NECK: Trachea appears to be central. No masses noted. No JVD or thyromegaly appreciated. RESPIRATORY: Chest is symmetrical. No intercostals muscle retraction or any accessory muscle activation. Has some bilateral chest wall tenderness. Breath sounds are heard bilaterally. BREASTS: Deferred. HEART: The heart sounds are normal. No S3 or S4. No significant murmurs. No pericardial rub ABDOMEN: No vessel pulsations or distention. No tenderness. No organomegaly appreciated. Bowel sounds are normally heard. : Deferred. RECTAL: Deferred. LYMPHATIC: No lymphadenopathy noted in the neck. EXTREMITIES: No edema or cyanosis. No clubbing. Areas of ecchymosis, superficial abrasions and bruising MUSCULOSKELETAL: No acute joint deformities or swelling SKIN: There are no significant rashes or ecchymosis NEUROPSYCHIATRIC: Patient is alert and oriented to place and person. Do not recall the recent events. No focal motor deficits. Urinary Catheter Management: Mireles: Cath Placed During This Visit: yes, but has since been removed by the nurse Reason for Continuing Indwelling Catheter: Accurate Measurement of Urinary Output in Critically Ill Patients Urinary Catheter Date of Insertion: 08/13/23 Urinary Catheter Time of Insertion: 00:11 Date Urinary Catheter Removed: 08/17/23 Time Urinary Catheter Discontinued: 08:30 Data 08/17/23 04:26 08/17/23 04:26 Other Labs: Laboratory Last Values WBC 12.37 10^3/uL (3.29-11.43) H 08/17/23 04: RBC 3.79 10^6/uL (3.85-5.65) L 08/17/23 04: Hgb 11.60 g/dL (11.27-16.99) 08/17/23 04: Hct 35.5 % (36-47) L 08/17/23 04:26 MCV 93.7 fl (85-98) 08/17/23 04: MCH 30.6 pg (27-33) 08/17/23 04: MCHC 32.7 g/dL (30-55) 08/17/23 04: RDW 15.1 % (12.1-15.1) 08/17/23 04: Plt Count 111 10^3/cmm (157-399) L 08/17/23 04: MPV 10.1 fL (7.4-10.4) 08/17/23 04: Neut % (Auto) 67.9 % 08/17/23 04: Lymph % (Auto) 20.5 % 08/17/23 04: Bennett % (Auto) 7.3 % 08/17/23 04: Eos % (Auto) 3.0 % 08/17/23 04: Baso % (Auto) 0.2 % 08/17/23 04: Neut # (Auto) 8.40 10^3/uL (1.8-7.7) H 08/17/23 04: Lymph # (Auto) 2.5 10^3/uL (0.8-4.8) 08/17/23 04: Bennett # (Auto) 0.9 10^3/uL (0.2-0.9) 08/17/23 04: Eos # (Auto) 0.4 10^3/uL (0.0-0.8) 08/17/23 04: Baso # (Auto) 0.0 10^3/uL (0.0-0.1) 08/17/23 04: Nucleated RBC % (auto) 0 % 08/17/23 04: Nucleated RBCs # 0.0 /100WBC 08/17/23: APTT 40.5 SECONDS (23.9-36.7) H 08/13/23 21:57 Specimen Type Arterial 08/12/23 18:26 Sample Site Radial, right 08/12/23 18: ABG pH 7.38 (7.35-7.45) 08/12/23 18: ABG pCO2 25.0 mmHg (35-45) L 08/12/23 18: ABG pO2 77.6 mmHg (80.0-100.0) L 08/12/23 18: ABG PO2/FiO2 Ratio 0 08/12/23 18: ABG HCO3 14.9 mmol/L (22-26) L 08/12/23 18:26 ABG O2 Saturation 96.0 08/12/23 18:26 ABG Base Excess -7.8 mmol/L (-2.0-2.0) L 08/12/23 18:26 Vikram Test Pos 08/12/23 18:26 A-a O2 Gradient 5.1 mmHg (5-10) 08/12/23 18:26 Hematocrit 57.6 % (37-47) H 08/12/23 18:26 Hgb O2 Saturation 94.8 % (95-100) L 08/12/23 18:26 Carboxyhemoglobin 1.0 %THgb (0.4-20.1) 08/12/23 18:26 Methemoglobin 0.3 % (0.4-1.5) L 08/12/23 18:26 Total Hemoglobin 18.8 g/dL (12-16) H 08/12/23 18:26 Sodium 153.0 mmol/L (131-143) H 08/12/23 18:26 Potassium 4.3 mmol/L (3.5-5.0) 08/12/23 18:26 Glucose 172.0 mg/dL (70-115) H 08/12/23 18:26 Ionized Calcium 1.1 mmol/L (1.1-1.4) 08/12/23 18:26 O2 Delivery Device Room air 08/12/23 18:26 FiO2 21.0 % 08/12/23 18:26 Dragline Oiler ID [place] 08/12/23 18:26 Sodium 142 mmol/L (136-145) 08/17/23 04:26 Potassium 3.5 mmol/L (3.5-5.1) 08/17/23 04:26 Chloride 111 mmol/L (98-107) H 08/17/23 04:26 Carbon Dioxide 21 mmol/L (22-29) L 08/17/23 04:26 Anion Gap 13.5 (5-19) 08/17/23 04:26 BUN 8 mg/dL (6-20) 08/17/23 04:26 Creatinine 0.7 mg/dL (0.5-0.9) 08/17/23 04:26 GFR Calculation 87.9 mL/min (90-130) L 08/17/23 04:26 Glucose 145 mg/dL (65-115) H 08/17/23 04:26 Estimat Average Glucose 108 08/13/23 01:36 Hemoglobin A1c 5.4 % (4.0-6.0) 08/13/23 01:36 Calculated Osmolality 295 mOsm/kg (285-295) 08/17/23 04:26 Lactic Acid 3.4 mmol/L (0.5-2.2) H 08/12/23 18:26 Lactic Acid (Sepsis) 2.7 mmol/L (0.5-2.2) H 08/12/23 21:55 Calcium 7.9 mg/dL (8.5-10.5) L 08/17/23 04:26 Magnesium 3.9 mg/dL (1.7-2.3) H 08/12/23 18:26 Total Bilirubin 0.4 mg/dL (0.15-1.2) 08/16/23 04:01 AST 130 U/L (0-32) H 08/16/23 04:01 ALT 104 U/L (0-33) H 08/16/23 04:01 Alkaline Phosphatase 64 U/L (35-105) 08/16/23 04:01 Ammonia 21 umol/L (11-51) 08/12/23 18:26 Creatine Kinase 2448 U/L (26-192) H* 08/17/23 04:26 Troponin T 5th Gen ng/L 672 ng/L (0-10) H* 08/13/23 14:57 Troponin T Baseline 585 ng/L (0-10) H* 08/12/23 23:40 Troponin T 120 Minute 620.3 ng/L (0-10) H 08/13/23 01:36 Delta Troponin T 35.3 ABS# (0-10) H* 08/13/23 01:36 Troponin T Hi Sens 6Hr 679.4 ng/L (0-10) H 08/13/23 05:47 Troponin T Hi Sens 6Hr Delta 94.4 ng/L (0-12) H* 08/13/23 05:47 C-Reactive Protein 154.2 mg/L (0.0-4.9) H 08/13/23 01:36 Total Protein 5.0 g/dL (6.6-8.7) L 08/16/23 04:01 Albumin 2.4 g/dL (3.5-5.2) L 08/16/23 04:01 Globulin 2.6 g/dL (1.3-4.6) 08/16/23 04:01 Triglycerides 171 mg/dL (0-150) H 08/16/23 04:01 Cholesterol 115 mg/dL (0-200) 08/16/23 04:01 LDL Cholesterol Direct 86 mg/dL (0-100) 08/13/23 01:36 LDL Cholesterol, Calc 49 mg/dL (50-129) L 08/16/23 04:01 HDL Cholesterol 32 mg/dL (60-100) L 08/16/23 04:01 LDL/HDL Ratio 1.53 RATIO (0.00-3.22) 08/16/23 04:01 Cholesterol/HDL Ratio 3.59 mg/dL (0.0-4.40) 08/16/23 04:01 Lipase 47 U/L (13-60) 08/12/23 18:26 Procalcitonin 0.80 ng/mL (0-0.5) H 08/13/23 01:36 TSH 4.80 uIU/mL (0.27-4.20) H 08/13/23 05:47 Urine Color Yellow (Yellow) 08/12/23 18:45 Urine Appearance Sl hazy (CLEAR) A 08/12/23 18:45 Urine pH 5 (5-7) 08/12/23 18:45 Ur Specific [place] 1.030 (1.005-1.030) 08/12/23 18:45 Urine Protein 1+ (Negative) H 08/12/23 18:45 Urine Glucose (UA) Norm (Normal) 08/12/23 18:45 Urine Ketones Negative (Negative) 08/12/23 18:45 Urine Blood 3+ (Negative) H 08/12/23 18:45 Urine Nitrate Negative (Negative) 08/12/23 18:45 Urine Bilirubin Neg (Negative) 08/12/23 18:45 Urine Urobilinogen Norm mg/dL (Negative) 08/12/23 18:45 Ur Leukocyte Esterase Negative (Negative) 08/12/23 18:45 Urine RBC 0-4 /hpf (0-2) H 08/12/23 18:45 Urine WBC 0-4 /hpf (0-5) H 08/12/23 18:45 Ur Squamous Epith Cells 0-4 /hpf (0-5) H 08/12/23 18:45 Amorphous Sediment Trace /hpf 08/12/23 18:45 Urine Bacteria Trace /hpf (NONE) 08/12/23 18:45 Urine Mucus Trace /hpf 08/12/23 18:45 Salicylates < 0.3 mg/dL (3-10) L 08/12/23 18:26 Urine Opiates Screen Negative ng/mL (Negative) 08/12/23 18:45 Acetaminophen < 5.0 ug/mL (10-30) L 08/12/23 18:26 Ur Barbiturates Screen Negative ng/mL (Negative) 08/12/23 18:45 Ur Phencyclidine Scrn Negative ng/mL (Negative) 08/12/23 18:45 Ur Amphetamines Screen Negative ng/mL (Negative) 08/12/23 18:45 U Benzodiazepines Scrn Negative ng/mL (Negative) 08/12/23 18:45 Urine Cocaine Screen Negative ng/mL (Negative) 08/12/23 18:45 U Marijuana (THC) Screen Negative ng/mL (Negative) 08/12/23 18:45 Ethyl Alcohol < 10 mg/dL (0-10) 08/12/23 18:26 Serum Ketones Negative (Negative) 08/12/23 18:26 RPR w/Rflx to Titer Non-reactive (NON-REACTIVE) 08/13/23 05:47 Adenovirus (PCR) Not detected (NOT DETECT) 08/13/23 06:30 C. pneumoniae DNA (PCR) Not detected (NOT DETECT) 08/13/23 06:30 Coronavirus 229E (PCR) Not detected (NOT DETECT) 08/13/23 06:30 Hepatitis A IgM Ab Non-reactive (Nonreactive) 08/13/23 01:36 Hep Bs Antigen Non-reactive (Nonreactive) 08/13/23 01:36 Hep Bs Antibody < 3.5 (11.5-1000) L 08/13/23 01:36 Hep B Core Total Ab Non-reactive (Nonreactive) 08/13/23 01:36 Hepatitis C Antibody Non-reactive (Nonreactive) 08/13/23 01:36 HIV 1&2 Ab & HIV 1 Ag Non-reactive (Non-Reactiv) 08/13/23 01:36 HIV 1&2 Antibody Non-reactive (Non-Reactiv) 08/13/23 01:36 Human Metapneumovir PCR Not detected (NOT DETECT) 08/13/23 06:30 Influenza A (H1) PCR Not detected (NOT DETECT) 08/13/23 06:30 Influ A (H1/09) PCR Not detected (NOT DETECT) 08/13/23 06:30 Influenza A (H3) PCR Not detected (NOT DETECT) 08/13/23 06:30 Influenza Type A (PCR) Not detected (NOT DETECT) 08/13/23 06:30 Influenza Type B (PCR) Not detected (NOT DETECT) 08/13/23 06:30 M. pneumoniae (PCR) Not detected (NOT DETECT) 08/13/23 06:30 Parainfluenza 1 (PCR) Not detected (NOT DETECT) 08/13/23 06:30 Parainfluenza 2 (PCR) Not detected (NOT DETECT) 08/13/23 06:30 Parainfluenza 3 (PCR) Not detected (NOT DETECT) 08/13/23 06:30 Parainfluenza 4 (PCR) Not detected (NOT DETECT) 08/13/23 06:30 RSV Type A (PCR) Not detected (NOT DETECT) 08/13/23 06:30 RSV Type B (PCR) Not detected (NOT DETECT) 08/13/23 06:30 Entero/Rhino (PCR) Not detected (NOT DETECT) 08/13/23 06:30 SARS-CoV-2 (PCR) Not detected (NOT DETECT) 08/13/23 06:30 Micro: Microbiology 08/12/23 19:54 Blood Culture - Final Blood NO GROWTH AFTER 5 DAYS 08/12/23 19:50 Blood Culture - Final Blood NO GROWTH AFTER 5 DAYS A&P Assessment and plan (1) Elevated troponin: For further evaluation, a Myocardial perfusion imaging would be appropriate. This was discussed with the patient in detail which she understood well and consented to proceed. We may go ahead and do schedule for this procedure tomorrow. Based on the results, further recommendations will be made. (2) Leukocytosis: ? Acute phase reactant. Seems to be improving. May continue on the current management. Qualifiers: Leukocytosis type: other Qualified Code(s): D72.828 - Other elevated white blood cell count (3) Acute dehydration: Careful IV hydration (4) Acute kidney injury: Currently the BUN/creatinine is returned to the baseline. Will continue on the current measures. (5) Rhabdomyolysis: Clinically improving. Qualifiers: Encounter type: initial encounter Rhabdomyolysis type: traumatic Qualified Code(s): T79.6XXA - Traumatic ischemia of muscle, initial encounter (6) Altered mental status: Continues to improve. Does not recall the recent events. Qualifiers: Altered mental status type: unspecified Qualified Code(s): R41.82 - Altered mental status, unspecified Plan Schedule for the Myocardial perfusion imaging in the morning. Continue on the current medication for the time being. Based on the results of the above tests and the patient's clinical progress, further recommendations will be made. Attestations 2 Medical Necessity Statement*: Patient requires continued hospital stay for close monitoring and further management Coding Level of Care Code 58533 Diagnoses Elevated troponin R79.89 Other elevated white blood cell (WBC) count D72.828 Leukocytosis type: other Acute dehydration E86.0 Acute kidney injury N17.9 Rhabdomyolysis T79.6XXA Encounter type: initial encounter Rhabdomyolysis type: traumatic Altered mental status, unspecified altered mental status type R41.82 Altered mental status type: unspecified
[2023-08-17] MEDS: atorvastatin 40 mg Tablet PO (21:44)
[2023-08-18] VITALS (10 sets, daily range): BP systolic 124–140; BP diastolic 70–80; PULSE 77–102; RESP 16–23; TEMP 36.5–37; O2SAT 96–98; BMI 28.8
[2023-08-18] MEDS: zolpidem 5 mg Tablet 2.5 MG PO ×2 (01:51→20:27)
[2023-08-18] MEDS: dextrose 5%-sod chloride 0.45% 1,000 ML 125 ML IV (04:38)
[2023-08-18 05:28] LABS: Basophils % 0.2 %; Eosinophils # 0.3 10^3/uL (0.0-0.8); Eosinophils % 2.9 %; Hematocrit 35.2 % (36-47); Lymphocytes # 2.6 10^3/uL (0.8-4.8); Lymphocytes % 22.6 %; Mean Corpuscular HGB Conc 32.7 g/dL (30-55); Mean Corpuscular Hemoglobin 30.5 pg (27-33); Mean Corpuscular Volume 93.4 fl (85-98); Mean Platelet Volume 10.4 fL (7.4-10.4); Monocytes # 1.1 10^3/uL (0.2-0.9); Monocytes % 9.2 %; Neutrophils # 7.38 10^3/uL (1.8-7.7); Neutrophils % 64.2 %; Nucleated Red Blood Cells % 0 %; Platelet Count 142 10^3/cmm (157-399); Red Blood Count 3.77 10^6/uL (3.85-5.65); Red Cell Distribution Width 14.9 % (12.1-15.1); White Blood Count 11.49 10^3/uL (3.29-11.43)
[2023-08-18 05:53] LABS: Alanine Aminotransferase 72 U/L (0-33); Albumin Level 2.4 g/dL (3.5-5.2); Alkaline Phosphatase 61 U/L (35-105); Aspartate Amino Transferase 51 U/L (0-32); Blood Urea Nitrogen 7 mg/dL (6-20); Calcium 7.8 mg/dL (8.5-10.5); Carbon Dioxide 23 mmol/L (22-29); Chloride 111 mmol/L (98-107); Creatinine Clr Calc Pharmacy 93.9476; Globulin 2.6 g/dL (1.3-4.6); Glomerular Filtration Rate 87.9 mL/min (90-130); Glucose 128 mg/dL (65-115); Magnesium 1.5 mg/dL (1.7-2.3); Osmolality Calculated 294 mOsm/kg (285-295); Sodium 142 mmol/L (136-145); Total Bilirubin 0.4 mg/dL (0.15-1.2)
[2023-08-18] MEDS: pantoprazole 40 mg SDV IVP ×2 (05:54→17:51)
[2023-08-18 06:02] LABS: Creatine Phosphokinase 1650 U/L (26-192)
[2023-08-18] MEDS: regadenoson 0.4 Mg/5 ml Syringe 0.400000000000000022 MG IVP (07:43)
--- NOTE | 2023-08-18 07:44 | PC.NURSE ---
Patient left CSU to stress lab at 0715.
--- NOTE | 2023-08-18 08:00 | NMCV_ITS ---
NM erica perf SPECT r/s* [id number] Sobeida Barrios Age: 53 Gender: F : 1970 Exam Date: 08/18/2023 06:37 Ordering Phys: Narda Ramírez MD ([email or web address]) Technologist: ROSANNE Albrecht Exam Location: [facility] Indications: CHEST PAIN STRESS TEST Please see separate stress test report in [facility] for full findings IMAGE PROTOCOL Rest/Stress 1 Lexiscan Day Radiopharmaceutical Dose (mCi) Administration Site Administered by Rest: Tc-99m 10.6 IV ROSANNE Felipe Sestamibi Stress:Tc-99m 32.8 IV ROSANNE Felipe Sestamibi Rest: 18-Aug-2023 60 Discovery 630 Stress: 18-Aug-2023 30 Discovery 630 0.4mg Lexiscan. Supine position only as patient was unable to lay prone. SPECT RESULTS Technical Quality: Excellent Raw Data Analysis: Normal Image Corrections: No attenuation or motion correction applied Summed Stress Score: 0 Summed Rest Score: 0 Summed Difference Score: 0 PERFUSION FINDINGS Fairly uniform myocardial tracer uptake with no significant Perfusion normalities. FUNCTIONAL RESULTS (calculated via Gated SPECT) Stress Image LV EF (%): 88 Stress EDV (mL):57 TID: 0.85 Stress ESV (mL):7 FUNCTIONAL FINDINGS: Segmental wall motion analysis revealing no gross wall motion abnormalities IMPRESSIONS 1. Unremarkable Myocardial perfusion imaging 2. Normal LV ejection fraction of 88%. 3. LV wall motion analysis revealing no gross wall motion abnormalities. 4. Normal LV volume Low probability for coronary ischemia, based on the above findings Dr Narda Ramírez MD FAC (Electronically Signed) Final Date: 18 August 2023 10:11 S
--- NOTE | 2023-08-18 09:05 | P.PN_ITS ---
Documented by User: MAICOL Beth STDSALBADOR 08/18/23 09:14 Subjective 2 Subjective: Ms. Harry was seen this morning, sitting in bed eating breakfast, after her cardiac stress test. No acute events overnight, she reports that she has difficulty sleeping. She reports no difficulty eating drinking, conversing appropriately. She reports no other concerns today, and feels like she is back to her home baseline. Medications: Reviewed: Yes Vitals/I&O/Wt Last Vital Signs Temp 98.2 F 08/17/23 20:33 Pulse 102 H 08/18/23 07:57 Resp 23 H 08/18/23 04:48 BP 135/76 08/18/23 07:57 Pulse Ox 96 08/18/23 04:48 O2 Del Method Room Air 08/17/23 20:33 08/17/23 08/18/23 08/18/23 22:59 06:59 14:59 Intake Total 1750 / 3230 1707.083 / 4937.083 Balance 1750 / 2680 1707.083 / 4387.083 Weight last 48 hrs Weight 168 lb Weight 168 lb Physical Exam 2 Narrative: General: Comfortable appearing patient, sitting in bed, eating breakfast. Conversing appropriately, alert and oriented x 3. HEENT: Head atraumatic normocephalic, head shaved recently, PERRL, no scleral icterus or injection noted, neck supple no thyromegaly noted. CV: Normal rate and rhythm, S1-S2 noted, no murmurs rubs or gallops noted. Pulm: Lungs clear to auscultation bilaterally. GI: Abdomen soft, nontender, bowel sounds active in all quadrants. Skin: Multiple bruises on body. Left lower extremity shows erythema, it is tender to palpation, over the entirety of the anterior thigh, and abrasions on shins. Extremities: No edema noted in bilateral lower extremities. Urinary Catheter Management: Mireles: Cath Placed During This Visit: yes, but has since been removed by the nurse Reason for Continuing Indwelling Catheter: Accurate Measurement of Urinary Output in Critically Ill Patients Urinary Catheter Date of Insertion: 08/13/23 Urinary Catheter Time of Insertion: 00:11 Date Urinary Catheter Removed: 08/17/23 Time Urinary Catheter Discontinued: 08:30 Data 08/18/23 04:47 08/18/23 04:47 Other Labs: Laboratory Last Values WBC 12.37 10^3/uL (3.29-11.43) H 08/17/23 04: RBC 3.79 10^6/uL (3.85-5.65) L 08/17/23 04: Hgb 11.60 g/dL (11.27-16.99) 08/17/23 04: Hct 35.5 % (36-47) L 08/17/23 04: MCV 93.7 fl (85-98) 08/17/23 04:26 MCH 30.6 pg (27-33) 08/17/23 04: MCHC 32.7 g/dL (30-55) 08/17/23 04: RDW 15.1 % (12.1-15.1) 08/17/23 04: Plt Count 111 10^3/cmm (157-399) L 08/17/23 04: MPV 10.1 fL (7.4-10.4) 08/17/23 04: Neut % (Auto) 67.9 % 08/17/23 04:26 Lymph % (Auto) 20.5 % 08/17/23 04:26 Posey % (Auto) 7.3 % 08/17/23 04: Eos % (Auto) 3.0 % 08/17/23 04: Baso % (Auto) 0.2 % 08/17/23 04: Neut # (Auto) 8.40 10^3/uL (1.8-7.7) H 08/17/23 04: Lymph # (Auto) 2.5 10^3/uL (0.8-4.8) 08/17/23 04:26 Posey # (Auto) 0.9 10^3/uL (0.2-0.9) 08/17/23 04: Eos # (Auto) 0.4 10^3/uL (0.0-0.8) 08/17/23 04: Baso # (Auto) 0.0 10^3/uL (0.0-0.1) 08/17/23 04:26 Nucleated RBC % (auto) 0 % 08/17/23 04: Nucleated RBCs # 0.0 /100WBC 08/17/23 04:26 APTT 40.5 SECONDS (23.9-36.7) H 08/13/23 21:57 Specimen Type Arterial 08/12/23 18:26 Sample Site Radial, right 08/12/23 18:26 ABG pH 7.38 (7.35-7.45) 08/12/23 18:26 ABG pCO2 25.0 mmHg (35-45) L 08/12/23 18:26 ABG pO2 77.6 mmHg (80.0-100.0) L 08/12/23 18:26 ABG PO2/FiO2 Ratio 0 08/12/23 18:26 ABG HCO3 14.9 mmol/L (22-26) L 08/12/23 18:26 ABG O2 Saturation 96.0 08/12/23 18:26 ABG Base Excess -7.8 mmol/L (-2.0-2.0) L 08/12/23 18:26 Vikram Test Pos 08/12/23 18:26 A-a O2 Gradient 5.1 mmHg (5-10) 08/12/23 18:26 Hematocrit 57.6 % (37-47) H 08/12/23 18:26 Hgb O2 Saturation 94.8 % (95-100) L 08/12/23 18:26 Carboxyhemoglobin 1.0 %THgb (0.4-20.1) 08/12/23 18:26 Methemoglobin 0.3 % (0.4-1.5) L 08/12/23 18:26 Total Hemoglobin 18.8 g/dL (12-16) H 08/12/23 18:26 Sodium 153.0 mmol/L (131-143) H 08/12/23 18:26 Potassium 4.3 mmol/L (3.5-5.0) 08/12/23 18:26 Glucose 172.0 mg/dL (70-115) H 08/12/23 18:26 Ionized Calcium 1.1 mmol/L (1.1-1.4) 08/12/23 18:26 O2 Delivery Device Room air 08/12/23 18:26 FiO2 21.0 % 08/12/23 18:26 Bulk Plant Agent ID Walci 08/12/23 18:26 Sodium 142 mmol/L (136-145) 08/17/23 04:26 Potassium 3.5 mmol/L (3.5-5.1) 08/17/23 04:26 Chloride 111 mmol/L (98-107) H 08/17/23 04:26 Carbon Dioxide 21 mmol/L (22-29) L 08/17/23 04:26 Anion Gap 13.5 (5-19) 08/17/23 04:26 BUN 8 mg/dL (6-20) 08/17/23 04:26 Creatinine 0.7 mg/dL (0.5-0.9) 08/17/23 04:26 GFR Calculation 87.9 mL/min (90-130) L 08/17/23 04:26 Glucose 145 mg/dL (65-115) H 08/17/23 04:26 Estimat Average Glucose 108 08/13/23 01:36 Hemoglobin A1c 5.4 % (4.0-6.0) 08/13/23 01:36 Calculated Osmolality 295 mOsm/kg (285-295) 08/17/23 04:26 Lactic Acid 3.4 mmol/L (0.5-2.2) H 08/12/23 18:26 Lactic Acid (Sepsis) 2.7 mmol/L (0.5-2.2) H 08/12/23 21:55 Calcium 7.9 mg/dL (8.5-10.5) L 08/17/23 04:26 Magnesium 3.9 mg/dL (1.7-2.3) H 08/12/23 18:26 Total Bilirubin 0.4 mg/dL (0.15-1.2) 08/16/23 04:01 AST 130 U/L (0-32) H 08/16/23 04:01 ALT 104 U/L (0-33) H 08/16/23 04:01 Alkaline Phosphatase 64 U/L (35-105) 08/16/23 04:01 Ammonia 21 umol/L (11-51) 08/12/23 18:26 Creatine Kinase 2448 U/L (26-192) H* 08/17/23 04:26 Troponin T 5th Gen ng/L 672 ng/L (0-10) H* 08/13/23 14:57 Troponin T Baseline 585 ng/L (0-10) H* 08/12/23 23:40 Troponin T 120 Minute 620.3 ng/L (0-10) H 08/13/23 01:36 Delta Troponin T 35.3 ABS# (0-10) H* 08/13/23 01:36 Troponin T Hi Sens 6Hr 679.4 ng/L (0-10) H 08/13/23 05:47 Troponin T Hi Sens 6Hr Delta 94.4 ng/L (0-12) H* 08/13/23 05:47 C-Reactive Protein 154.2 mg/L (0.0-4.9) H 08/13/23 01:36 Total Protein 5.0 g/dL (6.6-8.7) L 08/16/23 04:01 Albumin 2.4 g/dL (3.5-5.2) L 08/16/23 04:01 Globulin 2.6 g/dL (1.3-4.6) 08/16/23 04:01 Triglycerides 171 mg/dL (0-150) H 08/16/23 04:01 Cholesterol 115 mg/dL (0-200) 08/16/23 04:01 LDL Cholesterol Direct 86 mg/dL (0-100) 08/13/23 01:36 LDL Cholesterol, Calc 49 mg/dL (50-129) L 08/16/23 04:01 HDL Cholesterol 32 mg/dL (60-100) L 08/16/23 04:01 LDL/HDL Ratio 1.53 RATIO (0.00-3.22) 08/16/23 04:01 Cholesterol/HDL Ratio 3.59 mg/dL (0.0-4.40) 08/16/23 04:01 Lipase 47 U/L (13-60) 08/12/23 18:26 Procalcitonin 0.80 ng/mL (0-0.5) H 08/13/23 01:36 TSH 4.80 uIU/mL (0.27-4.20) H 08/13/23 05:47 Urine Color Yellow (Yellow) 08/12/23 18:45 Urine Appearance Sl hazy (CLEAR) A 08/12/23 18:45 Urine pH 5 (5-7) 08/12/23 18:45 Ur Specific [place] 1.030 (1.005-1.030) 08/12/23 18:45 Urine Protein 1+ (Negative) H 08/12/23 18:45 Urine Glucose (UA) Norm (Normal) 08/12/23 18:45 Urine Ketones Negative (Negative) 08/12/23 18:45 Urine Blood 3+ (Negative) H 08/12/23 18:45 Urine Nitrate Negative (Negative) 08/12/23 18:45 Urine Bilirubin Neg (Negative) 08/12/23 18:45 Urine Urobilinogen Norm mg/dL (Negative) 08/12/23 18:45 Ur Leukocyte Esterase Negative (Negative) 08/12/23 18:45 Urine RBC 0-4 /hpf (0-2) H 08/12/23 18:45 Urine WBC 0-4 /hpf (0-5) H 08/12/23 18:45 Ur Squamous Epith Cells 0-4 /hpf (0-5) H 08/12/23 18:45 Amorphous Sediment Trace /hpf 08/12/23 18:45 Urine Bacteria Trace /hpf (NONE) 08/12/23 18:45 Urine Mucus Trace /hpf 08/12/23 18:45 Salicylates < 0.3 mg/dL (3-10) L 08/12/23 18:26 Urine Opiates Screen Negative ng/mL (Negative) 08/12/23 18:45 Acetaminophen < 5.0 ug/mL (10-30) L 08/12/23 18:26 Ur Barbiturates Screen Negative ng/mL (Negative) 08/12/23 18:45 Ur Phencyclidine Scrn Negative ng/mL (Negative) 08/12/23 18:45 Ur Amphetamines Screen Negative ng/mL (Negative) 08/12/23 18:45 U Benzodiazepines Scrn Negative ng/mL (Negative) 08/12/23 18:45 Urine Cocaine Screen Negative ng/mL (Negative) 08/12/23 18:45 U Marijuana (THC) Screen Negative ng/mL (Negative) 08/12/23 18:45 Ethyl Alcohol < 10 mg/dL (0-10) 08/12/23 18:26 Serum Ketones Negative (Negative) 08/12/23 18:26 RPR w/Rflx to Titer Non-reactive (NON-REACTIVE) 08/13/23 05:47 Adenovirus (PCR) Not detected (NOT DETECT) 08/13/23 06:30 C. pneumoniae DNA (PCR) Not detected (NOT DETECT) 08/13/23 06:30 Coronavirus 229E (PCR) Not detected (NOT DETECT) 08/13/23 06:30 Hepatitis A IgM Ab Non-reactive (Nonreactive) 08/13/23 01:36 Hep Bs Antigen Non-reactive (Nonreactive) 08/13/23 01:36 Hep Bs Antibody < 3.5 (11.5-1000) L 08/13/23 01:36 Hep B Core Total Ab Non-reactive (Nonreactive) 08/13/23 01:36 Hepatitis C Antibody Non-reactive (Nonreactive) 08/13/23 01:36 HIV 1&2 Ab & HIV 1 Ag Non-reactive (Non-Reactiv) 08/13/23 01:36 HIV 1&2 Antibody Non-reactive (Non-Reactiv) 08/13/23 01:36 Human Metapneumovir PCR Not detected (NOT DETECT) 08/13/23 06:30 Influenza A (H1) PCR Not detected (NOT DETECT) 08/13/23 06:30 Influ A (H1/09) PCR Not detected (NOT DETECT) 08/13/23 06:30 Influenza A (H3) PCR Not detected (NOT DETECT) 08/13/23 06:30 Influenza Type A (PCR) Not detected (NOT DETECT) 08/13/23 06:30 Influenza Type B (PCR) Not detected (NOT DETECT) 08/13/23 06:30 M. pneumoniae (PCR) Not detected (NOT DETECT) 08/13/23 06:30 Parainfluenza 1 (PCR) Not detected (NOT DETECT) 08/13/23 06:30 Parainfluenza 2 (PCR) Not detected (NOT DETECT) 08/13/23 06:30 Parainfluenza 3 (PCR) Not detected (NOT DETECT) 08/13/23 06:30 Parainfluenza 4 (PCR) Not detected (NOT DETECT) 08/13/23 06:30 RSV Type A (PCR) Not detected (NOT DETECT) 08/13/23 06:30 RSV Type B (PCR) Not detected (NOT DETECT) 08/13/23 06:30 Entero/Rhino (PCR) Not detected (NOT DETECT) 08/13/23 06:30 SARS-CoV-2 (PCR) Not detected (NOT DETECT) 08/13/23 06:30 Micro: Microbiology 08/12/23 19:54 Blood Culture - Final Blood NO GROWTH AFTER 5 DAYS 08/12/23 19:50 Blood Culture - Final Blood NO GROWTH AFTER 5 DAYS A&P Assessment and plan (1) Suicide attempt by drug overdose: Patient has a history of depression and substance abuse with previous admissions to psychiatric facilities and suicide attempts. She was found down at home brought in the ED with rhabdomyolysis. She has altered mental status possibly due to delirium or encephalopathy. CT performed in the ED shows no abnormalities. Urine drug screen performed in the ED shows no illicit substances, negative for salicylates, or acetaminophen. Psychiatry has been consulted, consult appreciated, they will be admitting her to neuropsych and following up with her after medical stabilization. Psychiatry continue to follow today. (2) Altered mental status: Consistent with encephalopathy. Overall this appears resolved today. Qualifiers: Altered mental status type: unspecified Qualified Code(s): R41.82 - Altered mental status, unspecified (3) Acute dehydration: Patient found down at home, with elevated CK. Dehydration resolved CK trending down: 1650 today. Patient eating and drinking adequately. Continue IV fluids, D5 one half NS?reduce rate to 75 mL/h. Safe to go to Neuropsych Unit today. (4) Rhabdomyolysis: Slow improvement. Safe to go to Neuropsych Unit today. Qualifiers: Encounter type: initial encounter Rhabdomyolysis type: traumatic Qualified Code(s): T79.6XXA - Traumatic ischemia of muscle, initial encounter (5) Elevated troponin: Troponin was elevated. Likely type II elevation. Likely secondary to massively increased CK. Cardiology consulted, appreciated. They are considering nuclear stress test outpatient, or perhaps inpatient. Echocardiogram shows 57% EF Continue aspirin, statin, beta-abdoulaye, Plavix (6) Alcohol use disorder: Patient has a history of substance use disorder, and psychiatric history. Continue to follow with psychiatry after discharge. Consider substance abuse rehab. (7) Major depressive disorder, recurrent: Patient has a history of substance use disorder and psychiatric history. Continue to follow with psychiatry after discharge. Psychiatry awaiting medical stabilization for admit Neuropsych Unit (8) Pediculosis: Patient presents to the ED with head lice. Head shaven. Treated with permethrin. (9) Multiple injuries: Resolving (10) Acute kidney injury: Patient found down at home for unknown amount of time. Her CK has been elevated, but [place] [id number] 08/16 - CK: 2448 Admitting creatinine: 3.7 08/16?creatinine: 0.7 Creatinine continues to be stable today, shows patient renal function is improving. Continue IV fluids, D5 1/2 NS at 75 mg/h. (11) Leukocytosis: Resolving Qualifiers: Leukocytosis type: other Qualified Code(s): D72.828 - Other elevated white blood cell count (12) Thrombocytopenia: Stable (13) Hypokalemia: (14) Hypomagnesemia: Plan Other medical problems as outlined in past medical history. Hypokalemia: Supplement with 40 mEq p.o. potassium. Hypomagnesemia: Supplement with 2 mg, IV. Recheck CBC CMP tomorrow. Coding Level of Care Code 63427 Diagnoses Suicide attempt by drug overdose T50.902A Altered mental status, unspecified altered mental status type R41.82 Altered mental status type: unspecified Acute dehydration E86.0 Rhabdomyolysis T79.6XXA Encounter type: initial encounter Rhabdomyolysis type: traumatic Elevated troponin R79.89 Alcohol use disorder F10.90 Major depressive disorder, recurrent F33.9 Pediculosis B85.2 Multiple injuries T07.XXXA Acute kidney injury N17.9 Other elevated white blood cell (WBC) count D72.828 Leukocytosis type: other Thrombocytopenia D69.6 Hypokalemia E87.6 Hypomagnesemia E83.42 Documented by User: Liliana Verdugo MD 08/18/23 11:14 Subjective 2 Subjective: Ms. Harry was seen this morning, sitting in bed eating breakfast, after her cardiac stress test. No acute events overnight, she reports that she has difficulty sleeping. She reports no difficulty eating drinking, conversing appropriately. She reports no other concerns today, and feels like she is back to her home baseline. Seen this morning. Patient is awaiting cardiac stress test results. She is requesting for something to help her sleep tonight. Physical Exam 2 Urinary Catheter Management: Mireles: Cath Placed During This Visit: yes, but has since been removed by the nurse Data 08/18/23 04:47 08/18/23 04:47 A&P Assessment and plan (1) Suicide attempt by drug overdose: Patient has a history of depression and substance abuse with previous admissions to psychiatric facilities and suicide attempts. She was found down at home brought in the ED with rhabdomyolysis. She has altered mental status possibly due to delirium or encephalopathy. CT performed in the ED shows no abnormalities. Urine drug screen performed in the ED shows no illicit substances, negative for salicylates, or acetaminophen. Psychiatry has been consulted, consult appreciated, they will be admitting her to neuropsych and following up with her after medical stabilization. Psychiatry continue to follow today. Transfer to psych floor once medically clear. (2) Altered mental status: Qualifiers: Altered mental status type: unspecified Qualified Code(s): R41.82 - Altered mental status, unspecified (3) Acute dehydration: Patient found down at home, with elevated CK. Dehydration resolved CK trending down: 1650 today. Patient eating and drinking adequately. Continue IV fluids, continue normal saline 100 cc/h. Stop D5 half water. Safe to go to Neuropsych Unit today. (4) Rhabdomyolysis: Qualifiers: Encounter type: initial encounter Rhabdomyolysis type: traumatic Qualified Code(s): T79.6XXA - Traumatic ischemia of muscle, initial encounter (5) Elevated troponin: (6) Alcohol use disorder: (7) Major depressive disorder, recurrent: (8) Pediculosis: (9) Multiple injuries: (10) Acute kidney injury: Patient found down at home for unknown amount of time. Her CK has been elevated, but [place] [id number] 08/16 - CK: 2448 Admitting creatinine: 3.7 08/16?creatinine: 0.7 Creatinine continues to be stable today, shows patient renal function is improving. (11) Leukocytosis: Qualifiers: Leukocytosis type: other Qualified Code(s): D72.828 - Other elevated white blood cell count (12) Thrombocytopenia: (13) Hypokalemia: (14) Hypomagnesemia: Plan Other medical problems as outlined in past medical history. Hypokalemia: Supplement with 40 mEq p.o. potassium. Hypomagnesemia: Supplement with 2 mg, IV. Recheck CBC CMP tomorrow. Plan for today08/18/2023 ? Continue normal saline 100 cc/h ? Awaiting stress test results ? Transfer to psych once medically stable. -Replete potassium ? Replete magnesium Attestations 2 Medical Necessity Statement*: Suicide attempt. Will need psychiatric hospitalization. Currently on medicine for clearance. Diagnoses Suicide attempt by drug overdose T50.902A Altered mental status, unspecified altered mental status type R41.82 Altered mental status type: unspecified Acute dehydration E86.0 Rhabdomyolysis T79.6XXA Encounter type: initial encounter Rhabdomyolysis type: traumatic Elevated troponin R79.89 Alcohol use disorder F10.90 Major depressive disorder, recurrent F33.9 Pediculosis B85.2 Multiple injuries T07.XXXA Acute kidney injury N17.9 Other elevated white blood cell (WBC) count D72.828 Leukocytosis type: other Thrombocytopenia D69.6 Hypokalemia E87.6 Hypomagnesemia E83.42
[2023-08-18] MEDS: magnesium sulfate premix 2 GM/50 ML PIGGYBACK IV (09:19)
[2023-08-18] MEDS: fluoxetine 20 mg Capsule PO (09:20)
[2023-08-18] MEDS: aspirin 81 mg EC Tablet PO (09:20)
[2023-08-18] MEDS: potassium chloride ER 20 mEq Tablet 40 MEQ PO ×2 (09:20→14:58)
[2023-08-18] MEDS: ciprofloxacin 0.3% Op Soln 2.5 mL Btl 1 DROP EYE-BOTH ×4 (09:20→20:27)
[2023-08-18] MEDS: metoprolol tartrate 25 mg Tablet PO ×2 (09:20→20:28)
[2023-08-18] MEDS: clopidogrel 75 mg Tablet PO (09:20)
[2023-08-18] MEDS: sodium chloride 0.9% 1,000 ML 75 ML IV (11:20)
--- NOTE | 2023-08-18 12:50 | P.NPUPN_ITS ---
Subjective NPU 2 Subjective: Patient presented today reporting that she was anxious to come over to the neuropsychiatric unit. Staff report awaiting transfer orders from hospitalist and that she has been medically cleared. Will endorse moving forward with her psychiatric treatment once those orders are in. She denied any side effects of medication and continues to report a desire to address the issues related to her hospitalization. Mental Status Exam 2 MSE Comments: This is an overweight versus obese white female in a hospital gown with limited grooming and eye contact. Head shaven secondary to lice infestation. No abnormal movements except for mild psychomotor retardation. More cooperative with exam in mild distress. Speech was decreased rate and volume with less latency of response. Mood described as okay, affect somewhat stoic and subdued. Thought process linear and less confused. Thought content: Patient denied active suicidal or homicidal ideation, there were no delusions reported or noted, she denied any auditory or visual hallucinations. Attention and concentration were limited and memory was appearing mostly unreliable but none were formally tested. She is alert and oriented to person and place. Insight, judgment and impulse control were impaired. Vitals/I&O/Wt Last Vital Signs Temp 97.7 F 08/18/23 11:52 Pulse 77 08/18/23 11:52 Resp 18 08/18/23 11:52 BP 125/76 08/18/23 11:52 Pulse Ox 97 08/18/23 11:52 O2 Del Method Room Air 08/18/23 11:52 08/17/23 08/18/23 08/18/23 22:59 06:59 14:59 Intake Total 1750 / 3230 1707.083 / 4937.083 770 / 770 Balance 1750 / 2680 1707.083 / 4387.083 770 / 770 Weight last 48 hrs Weight 76.204 kg Weight 76.204 kg Physical Exam 2 Urinary Catheter Management: Mireles: Cath Placed During This Visit: yes, but has since been removed by the nurse Reason for Continuing Indwelling Catheter: Accurate Measurement of Urinary Output in Critically Ill Patients Urinary Catheter Date of Insertion: 08/13/23 Urinary Catheter Time of Insertion: 00:11 Date Urinary Catheter Removed: 08/17/23 Time Urinary Catheter Discontinued: 08:30 Data NPU 08/18/23 04:47 08/18/23 04:47 Micro: Microbiology 08/12/23 19:54 Blood Culture - Final Blood NO GROWTH AFTER 5 DAYS 08/12/23 19:50 Blood Culture - Final Blood NO GROWTH AFTER 5 DAYS Microbiology 08/12/23 19:54 Blood Blood Culture - Final NO GROWTH AFTER 5 DAYS 08/12/23 19:50 Blood Blood Culture - Final NO GROWTH AFTER 5 DAYS A&P Assessment and plan (1) Alcohol use disorder: (2) Suicide attempt by drug overdose: (3) Major depressive disorder, recurrent: Plan Patient is a 53-year-old white female with known history of mental health and addiction issues with past admission to psychiatric facilities and suicide attempts who presented to the ICU after being found in her home on the ground with resultant rhabdomyolysis and a suicide note. 1. Continue current medication except initiated Prozac 20 mg p.o. daily. 2. Recommend sober living treatment after discharge at the highest level of care to which the patient is willing to commit. 3. Transfer to neuropsychiatric unit when medically stable. 4. Will attempt to get collateral information. 5. 21-day paperwork filed and we will continue to follow until transfer to the neuropsychiatric unit after medical clearance. Attestations NPU 2 Medical Necessity Statement*: N/A. Please see primary team note for medical necessity possible transfer to the neuropsychiatric unit tomorrow. Coding Level of Care Code Acute Code for [facility] Diagnoses Alcohol use disorder F10.90 Suicide attempt by drug overdose T50.902A Major depressive disorder, recurrent F33.9
--- NOTE | 2023-08-18 12:51 | PM.PN ---
Subjective Subjective: Patient denies any chest pain or palpitation. No unusual shortness of breath. No arrhythmias on the monitor. Medications: Medication Review Details: Current Medications Aminophylline (Aminophylline 25 Mg/Ml Sdv 10 Ml) 25 mg IVP Q2M PRN PRN Reason: see dose instructions Stop: 08/19/23 06:55 Artificial Tears (Artificial Tears Op Soln 15 Ml Btl) 1 drop EYE-BOTH Q4H PRN PRN Reason: DRY EYE(S) Aspirin (Aspirin 81 Mg Ec Tablet) 81 mg PO DAILY [facility] Last Admin: 08/18/23 09:20 Dose: 81 mg Atorvastatin Calcium (Atorvastatin 40 Mg Tablet) 40 mg PO BEDTIME [facility] Last Admin: 08/17/23 21:44 Dose: 40 mg Ciprofloxacin HCl (Ciprofloxacin 0.3% Op Soln 2.5 Ml Btl) 1 drop EYE-BOTH QID [facility]; Protocol Last Admin: 08/18/23 09:20 Dose: 1 drop Clopidogrel Bisulfate (Clopidogrel 75 Mg Tablet) 75 mg PO DAILY [facility] Last Admin: 08/18/23 09:20 Dose: 75 mg Fluoxetine HCl (Fluoxetine 20 Mg Capsule) 20 mg PO DAILY [facility] Last Admin: 08/18/23 09:20 Dose: 20 mg Sodium Chloride (Sodium Chloride 0.9%) 1,000 mls @ 75 mls/hr IV .[id number] [facility] Last Admin: 08/18/23 11:20 Dose: 75 mls/hr Metoprolol Tartrate (Metoprolol Tartrate 25 Mg Tablet) 25 mg PO BID@0900,2100 [facility] Last Admin: 08/18/23 09:20 Dose: 25 mg Nitroglycerin (Nitroglycerin 0.4 Mg Sublingual Tablet) 0.4 mg SUBLINGUAL Q5M PRN PRN Reason: CHEST PAIN Stop: 08/19/23 06:55 Ondansetron HCl (Ondansetron 2 Mg/Ml Sdv 2 Ml) 4 mg IVP Q2M PRN PRN Reason: NAUSEA Pantoprazole Sodium (Pantoprazole 40 Mg Sdv) 40 mg IVP Q12H [facility] Last Admin: 08/18/23 05:54 Dose: 40 mg Potassium Chloride (Potassium Chloride Er 20 Meq Tablet) 40 meq PO ONCE ONE Stop: 08/18/23 13:01 Zolpidem Tartrate (Zolpidem 5 Mg Tablet) 2.5 mg PO BEDTIME PRN PRN Reason: INSOMNIA Last Admin: 08/18/23 01:51 Dose: 2.5 mg Vitals/I&O/Wt Last Vital Signs Temp 97.7 F 08/18/23 11:52 Pulse 77 08/18/23 11:52 Resp 18 08/18/23 11:52 BP 125/76 08/18/23 11:52 Pulse Ox 97 08/18/23 11:52 O2 Del Method Room Air 08/18/23 11:52 08/17/23 08/18/23 08/18/23 22:59 06:59 14:59 Intake Total 1750 / 3230 1707.083 / 4937.083 770 / 770 Balance 1750 / 2680 1707.083 / 4387.083 770 / 770 Weight last 48 hrs Weight 168 lb Weight 168 lb Physical Exam Narrative: GENERAL: The patient is alert and oriented to person and place. Not in any acute distress. HEENT: No significant pallor, icterus or lymphadenopathy.Oral cavity: There are no mucous membrane lesions. NECK: Trachea appears to be central. No masses noted. No JVD or thyromegaly appreciated. RESPIRATORY: Chest is symmetrical. No intercostals muscle retraction or any accessory muscle activation. Has some bilateral chest wall tenderness. Breath sounds are heard bilaterally. BREASTS: Deferred. HEART: The heart sounds are normal. No S3 or S4. No significant murmurs. No pericardial rub ABDOMEN: No vessel pulsations or distention. No tenderness. No organomegaly appreciated. Bowel sounds are normally heard. : Deferred. RECTAL: Deferred. LYMPHATIC: No lymphadenopathy noted in the neck. EXTREMITIES: No edema or cyanosis. No clubbing. Areas of ecchymosis, superficial abrasions and bruising MUSCULOSKELETAL: No acute joint deformities or swelling SKIN: There are no significant rashes or ecchymosis NEUROPSYCHIATRIC: Patient is alert and oriented to place and person. Do not recall the recent events. No focal motor deficits. Urinary Catheter Management: Mireles: Cath Placed During This Visit: yes, but has since been removed by the nurse Reason for Continuing Indwelling Catheter: Accurate Measurement of Urinary Output in Critically Ill Patients Urinary Catheter Date of Insertion: 08/13/23 Urinary Catheter Time of Insertion: 00:11 Date Urinary Catheter Removed: 08/17/23 Time Urinary Catheter Discontinued: 08:30 Data 04/23/24 04:47 08/18/23 04:47 Other Labs: Laboratory Last Values WBC 11.49 10^3/uL (3.29-11.43) H 08/18/23 04:47 RBC 3.77 10^6/uL (3.85-5.65) L 08/18/23 04:47 Hgb 11.50 g/dL (11.27-16.99) 08/18/23 04:47 Hct 35.2 % (36-47) L 08/18/23 04:47 MCV 93.4 fl (85-98) 08/18/23 04:47 MCH 30.5 pg (27-33) 08/18/23 04:47 MCHC 32.7 g/dL (30-55) 08/18/23 04:47 RDW 14.9 % (12.1-15.1) 08/18/23 04:47 Plt Count 142 10^3/cmm (157-399) L 08/18/23 04:47 MPV 10.4 fL (7.4-10.4) 08/18/23 04:47 Neut % (Auto) 64.2 % 08/18/23 04:47 Lymph % (Auto) 22.6 % 08/18/23 04:47 Cook % (Auto) 9.2 % 08/18/23 04:47 Eos % (Auto) 2.9 % 08/18/23 04:47 Baso % (Auto) 0.2 % 08/18/23 04:47 Neut # (Auto) 7.38 10^3/uL (1.8-7.7) 08/18/23 04:47 Lymph # (Auto) 2.6 10^3/uL (0.8-4.8) 08/18/23 04:47 Cook # (Auto) 1.1 10^3/uL (0.2-0.9) H 08/18/23 04:47 Eos # (Auto) 0.3 10^3/uL (0.0-0.8) 08/18/23 04:47 Baso # (Auto) 0.0 10^3/uL (0.0-0.1) 08/18/23 04:47 Nucleated RBC % (auto) 0 % 08/18/23 04:47 Nucleated RBCs # 0.0 /100WBC 08/18/23 04:47 APTT 40.5 SECONDS (23.9-36.7) H 08/13/23 21:57 Specimen Type Arterial 08/12/23 18:26 Sample Site Radial, right 08/12/23 18:26 ABG pH 7.38 (7.35-7.45) 08/12/23 18:26 ABG pCO2 25.0 mmHg (35-45) L 08/12/23 18:26 ABG pO2 77.6 mmHg (80.0-100.0) L 08/12/23 18:26 ABG PO2/FiO2 Ratio 0 08/12/23 18:26 ABG HCO3 14.9 mmol/L (22-26) L 08/12/23 18:26 ABG O2 Saturation 96.0 08/12/23 18:26 ABG Base Excess -7.8 mmol/L (-2.0-2.0) L 08/12/23 18:26 Vikram Test Pos 08/12/23 18:26 A-a O2 Gradient 5.1 mmHg (5-10) 08/12/23 18:26 Hematocrit 57.6 % (37-47) H 08/12/23 18:26 Hgb O2 Saturation 94.8 % (95-100) L 08/12/23 18:26 Carboxyhemoglobin 1.0 %THgb (0.4-20.1) 08/12/23 18:26 Methemoglobin 0.3 % (0.4-1.5) L 08/12/23 18:26 Total Hemoglobin 18.8 g/dL (12-16) H 08/12/23 18:26 Sodium 153.0 mmol/L (131-143) H 08/12/23 18:26 Potassium 4.3 mmol/L (3.5-5.0) 08/12/23 18:26 Glucose 172.0 mg/dL (70-115) H 08/12/23 18:26 Ionized Calcium 1.1 mmol/L (1.1-1.4) 08/12/23 18:26 O2 Delivery Device Room air 08/12/23 18:26 FiO2 21.0 % 08/12/23 18:26 Office Administration ID [place] 08/12/23 18:26 Sodium 142 mmol/L (136-145) 08/18/23 04:47 Potassium 3.0 mmol/L (3.5-5.1) L 08/18/23 04:47 Chloride 111 mmol/L (98-107) H 08/18/23 04:47 Carbon Dioxide 23 mmol/L (22-29) 08/18/23 04:47 Anion Gap 11.0 (5-19) 08/18/23 04:47 BUN 7 mg/dL (6-20) 08/18/23 04:47 Creatinine 0.7 mg/dL (0.5-0.9) 08/18/23 04:47 GFR Calculation 87.9 mL/min (90-130) L 08/18/23 04:47 Glucose 128 mg/dL (65-115) H 08/18/23 04:47 Estimat Average Glucose 108 08/13/23 01:36 Hemoglobin A1c 5.4 % (4.0-6.0) 08/13/23 01:36 Calculated Osmolality 294 mOsm/kg (285-295) 08/18/23 04:47 Lactic Acid 3.4 mmol/L (0.5-2.2) H 08/12/23 18:26 Lactic Acid (Sepsis) 2.7 mmol/L (0.5-2.2) H 08/12/23 21:55 Calcium 7.8 mg/dL (8.5-10.5) L 08/18/23 04:47 Magnesium 1.5 mg/dL (1.7-2.3) L 08/18/23 04:47 Total Bilirubin 0.4 mg/dL (0.15-1.2) 08/18/23 04:47 AST 51 U/L (0-32) H 08/18/23 04:47 ALT 72 U/L (0-33) H 08/18/23 04:47 Alkaline Phosphatase 61 U/L (35-105) 08/18/23 04:47 Ammonia 21 umol/L (11-51) 08/12/23 18:26 Creatine Kinase 1650 U/L (26-192) H* 08/18/23 04:47 Troponin T 5th Gen ng/L 672 ng/L (0-10) H* 08/13/23 14:57 Troponin T Baseline 585 ng/L (0-10) H* 08/12/23 23:40 Troponin T 120 Minute 620.3 ng/L (0-10) H 08/13/23 01:36 Delta Troponin T 35.3 ABS# (0-10) H* 08/13/23 01:36 Troponin T Hi Sens 6Hr 679.4 ng/L (0-10) H 08/13/23 05:47 Troponin T Hi Sens 6Hr Delta 94.4 ng/L (0-12) H* 08/13/23 05:47 C-Reactive Protein 154.2 mg/L (0.0-4.9) H 08/13/23 01:36 Total Protein 5.0 g/dL (6.6-8.7) L 08/18/23 04:47 Albumin 2.4 g/dL (3.5-5.2) L 08/18/23 04:47 Globulin 2.6 g/dL (1.3-4.6) 08/18/23 04:47 Triglycerides 171 mg/dL (0-150) H 08/16/23 04:01 Cholesterol 115 mg/dL (0-200) 08/16/23 04:01 LDL Cholesterol Direct 86 mg/dL (0-100) 08/13/23 01:36 LDL Cholesterol, Calc 49 mg/dL (50-129) L 08/16/23 04:01 HDL Cholesterol 32 mg/dL (60-100) L 08/16/23 04:01 LDL/HDL Ratio 1.53 RATIO (0.00-3.22) 08/16/23 04:01 Cholesterol/HDL Ratio 3.59 mg/dL (0.0-4.40) 08/16/23 04:01 Lipase 47 U/L (13-60) 08/12/23 18:26 Procalcitonin 0.80 ng/mL (0-0.5) H 08/13/23 01:36 TSH 4.80 uIU/mL (0.27-4.20) H 08/13/23 05:47 Urine Color Yellow (Yellow) 08/12/23 18:45 Urine Appearance Sl hazy (CLEAR) A 08/12/23 18:45 Urine pH 5 (5-7) 08/12/23 18:45 Ur Specific Unity 1.030 (1.005-1.030) 08/12/23 18:45 Urine Protein 1+ (Negative) H 08/12/23 18:45 Urine Glucose (UA) Norm (Normal) 08/12/23 18:45 Urine Ketones Negative (Negative) 08/12/23 18:45 Urine Blood 3+ (Negative) H 08/12/23 18:45 Urine Nitrate Negative (Negative) 08/12/23 18:45 Urine Bilirubin Neg (Negative) 08/12/23 18:45 Urine Urobilinogen Norm mg/dL (Negative) 08/12/23 18:45 Ur Leukocyte Esterase Negative (Negative) 08/12/23 18:45 Urine RBC 0-4 /hpf (0-2) H 08/12/23 18:45 Urine WBC 0-4 /hpf (0-5) H 08/12/23 18:45 Ur Squamous Epith Cells 0-4 /hpf (0-5) H 08/12/23 18:45 Amorphous Sediment Trace /hpf 08/12/23 18:45 Urine Bacteria Trace /hpf (NONE) 08/12/23 18:45 Urine Mucus Trace /hpf 08/12/23 18:45 Salicylates < 0.3 mg/dL (3-10) L 08/12/23 18:26 Urine Opiates Screen Negative ng/mL (Negative) 08/12/23 18:45 Acetaminophen < 5.0 ug/mL (10-30) L 08/12/23 18:26 Ur Barbiturates Screen Negative ng/mL (Negative) 08/12/23 18:45 Ur Phencyclidine Scrn Negative ng/mL (Negative) 08/12/23 18:45 Ur Amphetamines Screen Negative ng/mL (Negative) 08/12/23 18:45 U Benzodiazepines Scrn Negative ng/mL (Negative) 08/12/23 18:45 Urine Cocaine Screen Negative ng/mL (Negative) 08/12/23 18:45 U Marijuana (THC) Screen Negative ng/mL (Negative) 08/12/23 18:45 Ethyl Alcohol < 10 mg/dL (0-10) 08/12/23 18:26 Serum Ketones Negative (Negative) 08/12/23 18:26 RPR w/Rflx to Titer Non-reactive (NON-REACTIVE) 08/13/23 05:47 Adenovirus (PCR) Not detected (NOT DETECT) 08/13/23 06:30 C. pneumoniae DNA (PCR) Not detected (NOT DETECT) 08/13/23 06:30 Coronavirus 229E (PCR) Not detected (NOT DETECT) 08/13/23 06:30 Hepatitis A IgM Ab Non-reactive (Nonreactive) 08/13/23 01:36 Hep Bs Antigen Non-reactive (Nonreactive) 08/13/23 01:36 Hep Bs Antibody < 3.5 (11.5-1000) L 08/13/23 01:36 Hep B Core Total Ab Non-reactive (Nonreactive) 08/13/23 01:36 Hepatitis C Antibody Non-reactive (Nonreactive) 08/13/23 01:36 HIV 1&2 Ab & HIV 1 Ag Non-reactive (Non-Reactiv) 08/13/23 01:36 HIV 1&2 Antibody Non-reactive (Non-Reactiv) 08/13/23 01:36 Human Metapneumovir PCR Not detected (NOT DETECT) 08/13/23 06:30 Influenza A (H1) PCR Not detected (NOT DETECT) 08/13/23 06:30 Influ A (H1/09) PCR Not detected (NOT DETECT) 08/13/23 06:30 Influenza A (H3) PCR Not detected (NOT DETECT) 08/13/23 06:30 Influenza Type A (PCR) Not detected (NOT DETECT) 08/13/23 06:30 Influenza Type B (PCR) Not detected (NOT DETECT) 08/13/23 06:30 M. pneumoniae (PCR) Not detected (NOT DETECT) 08/13/23 06:30 Parainfluenza 1 (PCR) Not detected (NOT DETECT) 08/13/23 06:30 Parainfluenza 2 (PCR) Not detected (NOT DETECT) 08/13/23 06:30 Parainfluenza 3 (PCR) Not detected (NOT DETECT) 08/13/23 06:30 Parainfluenza 4 (PCR) Not detected (NOT DETECT) 08/13/23 06:30 RSV Type A (PCR) Not detected (NOT DETECT) 08/13/23 06:30 RSV Type B (PCR) Not detected (NOT DETECT) 08/13/23 06:30 Entero/Rhino (PCR) Not detected (NOT DETECT) 08/13/23 06:30 SARS-CoV-2 (PCR) Not detected (NOT DETECT) 08/13/23 06:30 Micro: Microbiology 08/12/23 19:54 Blood Culture - Final Blood NO GROWTH AFTER 5 DAYS 08/12/23 19:50 Blood Culture - Final Blood NO GROWTH AFTER 5 DAYS A&P Assessment and plan (1) Elevated troponin: For further evaluation, a Myocardial perfusion imaging would be appropriate. This was discussed with the patient in detail which she understood well and consented to proceed. We may go ahead and do schedule for this procedure tomorrow. Based on the results, further recommendations will be made. Patient went to Myocardial perfusion imaging today. She was found to have no evidence of ischemia based on the perfusion scan. The implications of this test results were discussed in detail with the patient. In the absence of any chest pain or objective evidence of ischemia, she will require referral investigation at this point. Most likely the elevated troponin T was related to type II NC. (2) Leukocytosis: Has significantly improved. Qualifiers: Leukocytosis type: other Qualified Code(s): D72.828 - Other elevated white blood cell count (3) Acute kidney injury: Currently the BUN/creatinine is returned to the baseline. Will continue on the current measures. (4) Rhabdomyolysis: Clinically improving. Qualifiers: Encounter type: initial encounter Rhabdomyolysis type: traumatic Qualified Code(s): T79.6XXA - Traumatic ischemia of muscle, initial encounter (5) Altered mental status: Continues to improve. Does not recall the recent events. Qualifiers: Altered mental status type: unspecified Qualified Code(s): R41.82 - Altered mental status, unspecified Plan Since the patient's cardiovascular status seems to be stable, she may not require any active follow-up at this point. I will sign off at this time. Feel free to contact me with any further questions, regarding her cardiovascular status Attestations Medical Necessity Statement*: Disposition as per the primary Coding Level of Care Code 24436 Diagnoses Elevated troponin R79.89 Other elevated white blood cell (WBC) count D72.828 Leukocytosis type: other Acute kidney injury N17.9 Rhabdomyolysis T79.6XXA Encounter type: initial encounter Rhabdomyolysis type: traumatic Altered mental status, unspecified altered mental status type R41.82 Altered mental status type: unspecified
[2023-08-18] MEDS: atorvastatin 40 mg Tablet PO (20:27)
[2023-08-19 03:39] VITALS: BP 124/73; PULSE 86; RESP 16; TEMP 37.2; O2SAT 98
[2023-08-19 03:42] LABS: Basophils % 0.2 %; Eosinophils # 0.3 10^3/uL (0.0-0.8); Eosinophils % 2.2 %; Hematocrit 34.5 % (36-47); Lymphocytes # 2.8 10^3/uL (0.8-4.8); Mean Corpuscular HGB Conc 32.5 g/dL (30-55); Mean Corpuscular Hemoglobin 30.9 pg (27-33); Mean Platelet Volume 10.3 fL (7.4-10.4); Monocytes # 1.2 10^3/uL (0.2-0.9); Monocytes % 8.8 %; Neutrophils # 8.86 10^3/uL (1.8-7.7); Nucleated Red Blood Cells % 0 %; Platelet Count 159 10^3/cmm (157-399); Red Blood Count 3.63 10^6/uL (3.85-5.65)
[2023-08-19 04:04] LABS: Anion Gap 11.8 (5-19); Blood Urea Nitrogen 8 mg/dL (6-20); Calcium 7.8 mg/dL (8.5-10.5); Carbon Dioxide 23 mmol/L (22-29); Chloride 107 mmol/L (98-107); Creatinine Clr Calc Pharmacy 93.9476; Glomerular Filtration Rate 87.9 mL/min (90-130); Glucose 115 mg/dL (65-115); Magnesium 1.9 mg/dL (1.7-2.3); Osmolality Calculated 285 mOsm/kg (285-295); Potassium 3.8 mmol/L (3.5-5.1); Sodium 138 mmol/L (136-145)
[2023-08-19 04:19] LABS: Creatine Phosphokinase 1196 U/L (26-192)
[2023-08-19 06:00] VITALS: PULSE 88; BMI 28.8
[2023-08-19] MEDS: pantoprazole 40 mg SDV IVP (06:13)
[2023-08-19] MEDS: sodium chloride 0.9% 1,000 ML 75 ML IV (06:14)
[2023-08-19 07:43] VITALS: BP 132/68; PULSE 86; RESP 20; TEMP 36.8; O2SAT 95
[2023-08-19] MEDS: metoprolol tartrate 25 mg Tablet PO ×2 (08:32→22:04)
[2023-08-19] MEDS: ciprofloxacin 0.3% Op Soln 2.5 mL Btl 1 DROP EYE-BOTH ×3 (08:32→22:00)
[2023-08-19] MEDS: fluoxetine 20 mg Capsule PO (08:33)
[2023-08-19] MEDS: clopidogrel 75 mg Tablet PO (08:33)
[2023-08-19] MEDS: aspirin 81 mg EC Tablet PO (08:33)
--- NOTE | 2023-08-19 09:36 | PM.PN ---
Documented by User: MAICOL Beth STDSALBADOR 08/19/23 09:47 Subjective Subjective: Ms. Harry reports that she is feeling better today, has no concerns, zolpidem last night helped her sleep. She reports mild pain in her left posterior hip, most likely related to her seating position and down crumpling under her, and shifting her weight resolves her concerns. She reports some mild anxiety transferring order neuropsych today. She reports no other concerns today. Medications: Reviewed: Yes Medication Review Details: Current Medications Aminophylline (Aminophylline 25 Mg/Ml Sdv 10 Ml) 25 mg IVP Q2M PRN PRN Reason: see dose instructions Stop: 08/19/23 06:55 Artificial Tears (Artificial Tears Op Soln 15 Ml Btl) 1 drop EYE-BOTH Q4H PRN PRN Reason: DRY EYE(S) Aspirin (Aspirin 81 Mg Ec Tablet) 81 mg PO DAILY COUNT INCLUDES THE [facility] Last Admin: 08/18/23 09:20 Dose: 81 mg Atorvastatin Calcium (Atorvastatin 40 Mg Tablet) 40 mg PO BEDTIME COUNT INCLUDES THE [facility] Last Admin: 08/17/23 21:44 Dose: 40 mg Ciprofloxacin HCl (Ciprofloxacin 0.3% Op Soln 2.5 Ml Btl) 1 drop EYE-BOTH QID COUNT INCLUDES THE [facility]; Protocol Last Admin: 08/18/23 09:20 Dose: 1 drop Clopidogrel Bisulfate (Clopidogrel 75 Mg Tablet) 75 mg PO DAILY COUNT INCLUDES THE [facility] Last Admin: 08/18/23 09:20 Dose: 75 mg Fluoxetine HCl (Fluoxetine 20 Mg Capsule) 20 mg PO DAILY COUNT INCLUDES THE [facility] Last Admin: 08/18/23 09:20 Dose: 20 mg Sodium Chloride (Sodium Chloride 0.9%) 1,000 mls @ 75 mls/hr IV .[id number] COUNT INCLUDES THE [facility] Last Admin: 08/18/23 11:20 Dose: 75 mls/hr Metoprolol Tartrate (Metoprolol Tartrate 25 Mg Tablet) 25 mg PO BID@0900,2100 COUNT INCLUDES THE [facility] Last Admin: 08/18/23 09:20 Dose: 25 mg Nitroglycerin (Nitroglycerin 0.4 Mg Sublingual Tablet) 0.4 mg SUBLINGUAL Q5M PRN PRN Reason: CHEST PAIN Stop: 08/19/23 06:55 Ondansetron HCl (Ondansetron 2 Mg/Ml Sdv 2 Ml) 4 mg IVP Q2M PRN PRN Reason: NAUSEA Pantoprazole Sodium (Pantoprazole 40 Mg Sdv) 40 mg IVP Q12H JOE Last Admin: 08/18/23 05:54 Dose: 40 mg Potassium Chloride (Potassium Chloride Er 20 Meq Tablet) 40 meq PO ONCE ONE Stop: 08/18/23 13:01 Zolpidem Tartrate (Zolpidem 5 Mg Tablet) 2.5 mg PO BEDTIME PRN PRN Reason: INSOMNIA Last Admin: 08/18/23 01:51 Dose: 2.5 mg Vitals/I&O/Wt Last Vital Signs Temp 98.3 F 08/19/23 07:43 Pulse 86 08/19/23 07:43 Resp 20 H 08/19/23 07:43 BP 132/68 08/19/23 07:43 Pulse Ox 95 08/19/23 07:43 O2 Del Method Room Air 08/19/23 07:43 08/18/23 08/19/23 08/19/23 22:59 06:59 14:59 Intake Total 1000 / 1770 480 / 480 Balance 1000 / 1770 480 / 480 Weight last 48 hrs Weight 168 lb Weight 168 lb Physical Exam Narrative: General: Comfortable appearing patient, sitting in bed. Conversing appropriately, alert and oriented x 3. HEENT: Head atraumatic normocephalic, head shaved recently, PERRL, no scleral icterus or injection noted, neck supple no thyromegaly noted. CV: Normal rate and rhythm, S1-S2 noted, no murmurs rubs or gallops noted. Pulm: Lungs clear to auscultation bilaterally. GI: Abdomen soft, nontender, bowel sounds active in all quadrants. Skin: Multiple bruises on body. Left lower extremity shows erythema, it is tender to palpation, over the entirety of the anterior thigh, and abrasions on shins. Extremities: No edema noted in bilateral lower extremities. Urinary Catheter Management: Mireles: Cath Placed During This Visit: yes, but has since been removed by the nurse Reason for Continuing Indwelling Catheter: Accurate Measurement of Urinary Output in Critically Ill Patients Urinary Catheter Date of Insertion: 08/13/23 Urinary Catheter Time of Insertion: 00:11 Date Urinary Catheter Removed: 08/17/23 Time Urinary Catheter Discontinued: 08:30 Data 08/19/23 03:26 08/19/23 03:26 Other Labs: Laboratory Last Values WBC 11.49 10^3/uL (3.29-11.43) H 08/18/23 04:47 RBC 3.77 10^6/uL (3.85-5.65) L 08/18/23 04:47 Hgb 11.50 g/dL (11.27-16.99) 08/18/23 04:47 Hct 35.2 % (36-47) L 08/18/23 04:47 MCV 93.4 fl (85-98) 08/18/23 04:47 MCH 30.5 pg (27-33) 08/18/23 04:47 MCHC 32.7 g/dL (30-55) 08/18/23 04:47 RDW 14.9 % (12.1-15.1) 08/18/23 04:47 Plt Count 142 10^3/cmm (157-399) L 08/18/23 04:47 MPV 10.4 fL (7.4-10.4) 08/18/23 04:47 Neut % (Auto) 64.2 % 08/18/23 04:47 Lymph % (Auto) 22.6 % 08/18/23 04:47 Power % (Auto) 9.2 % 08/18/23 04:47 Eos % (Auto) 2.9 % 08/18/23 04:47 Baso % (Auto) 0.2 % 08/18/23 04:47 Neut # (Auto) 7.38 10^3/uL (1.8-7.7) 08/18/23 04:47 Lymph # (Auto) 2.6 10^3/uL (0.8-4.8) 08/18/23 04:47 Power # (Auto) 1.1 10^3/uL (0.2-0.9) H 08/18/23 04:47 Eos # (Auto) 0.3 10^3/uL (0.0-0.8) 08/18/23 04:47 Baso # (Auto) 0.0 10^3/uL (0.0-0.1) 08/18/23 04:47 Nucleated RBC % (auto) 0 % 08/18/23 04:47 Nucleated RBCs # 0.0 /100WBC 08/18/23 04:47 APTT 40.5 SECONDS (23.9-36.7) H 08/13/23 21:57 Specimen Type Arterial 08/12/23 18:26 Sample Site Radial, right 08/12/23 18:26 ABG pH 7.38 (7.35-7.45) 08/12/23 18:26 ABG pCO2 25.0 mmHg (35-45) L 08/12/23 18:26 ABG pO2 77.6 mmHg (80.0-100.0) L 08/12/23 18:26 ABG PO2/FiO2 Ratio 0 08/12/23 18:26 ABG HCO3 14.9 mmol/L (22-26) L 08/12/23 18:26 ABG O2 Saturation 96.0 08/12/23 18:26 ABG Base Excess -7.8 mmol/L (-2.0-2.0) L 08/12/23 18:26 Vikram Test Pos 08/12/23 18:26 A-a O2 Gradient 5.1 mmHg (5-10) 08/12/23 18:26 Hematocrit 57.6 % (37-47) H 08/12/23 18:26 Hgb O2 Saturation 94.8 % (95-100) L 08/12/23 18:26 Carboxyhemoglobin 1.0 %THgb (0.4-20.1) 08/12/23 18:26 Methemoglobin 0.3 % (0.4-1.5) L 08/12/23 18:26 Total Hemoglobin 18.8 g/dL (12-16) H 08/12/23 18:26 Sodium 153.0 mmol/L (131-143) H 08/12/23 18:26 Potassium 4.3 mmol/L (3.5-5.0) 08/12/23 18:26 Glucose 172.0 mg/dL (70-115) H 08/12/23 18:26 Ionized Calcium 1.1 mmol/L (1.1-1.4) 08/12/23 18:26 O2 Delivery Device Room air 08/12/23 18:26 FiO2 21.0 % 08/12/23 18:26 External Grinder ID [place] 08/12/23 18:26 Sodium 142 mmol/L (136-145) 08/18/23 04:47 Potassium 3.0 mmol/L (3.5-5.1) L 08/18/23 04:47 Chloride 111 mmol/L (98-107) H 08/18/23 04:47 Carbon Dioxide 23 mmol/L (22-29) 08/18/23 04:47 Anion Gap 11.0 (5-19) 08/18/23 04:47 BUN 7 mg/dL (6-20) 08/18/23 04:47 Creatinine 0.7 mg/dL (0.5-0.9) 08/18/23 04:47 GFR Calculation 87.9 mL/min (90-130) L 08/18/23 04:47 Glucose 128 mg/dL (65-115) H 08/18/23 04:47 Estimat Average Glucose 108 08/13/23 01:36 Hemoglobin A1c 5.4 % (4.0-6.0) 08/13/23 01:36 Calculated Osmolality 294 mOsm/kg (285-295) 08/18/23 04:47 Lactic Acid 3.4 mmol/L (0.5-2.2) H 08/12/23 18:26 Lactic Acid (Sepsis) 2.7 mmol/L (0.5-2.2) H 08/12/23 21:55 Calcium 7.8 mg/dL (8.5-10.5) L 08/18/23 04:47 Magnesium 1.5 mg/dL (1.7-2.3) L 08/18/23 04:47 Total Bilirubin 0.4 mg/dL (0.15-1.2) 08/18/23 04:47 AST 51 U/L (0-32) H 08/18/23 04:47 ALT 72 U/L (0-33) H 08/18/23 04:47 Alkaline Phosphatase 61 U/L (35-105) 08/18/23 04:47 Ammonia 21 umol/L (11-51) 08/12/23 18:26 Creatine Kinase 1650 U/L (26-192) H* 08/18/23 04:47 Troponin T 5th Gen ng/L 672 ng/L (0-10) H* 08/13/23 14:57 Troponin T Baseline 585 ng/L (0-10) H* 08/12/23 23:40 Troponin T 120 Minute 620.3 ng/L (0-10) H 08/13/23 01:36 Delta Troponin T 35.3 ABS# (0-10) H* 08/13/23 01:36 Troponin T Hi Sens 6Hr 679.4 ng/L (0-10) H 08/13/23 05:47 Troponin T Hi Sens 6Hr Delta 94.4 ng/L (0-12) H* 08/13/23 05:47 C-Reactive Protein 154.2 mg/L (0.0-4.9) H 08/13/23 01:36 Total Protein 5.0 g/dL (6.6-8.7) L 08/18/23 04:47 Albumin 2.4 g/dL (3.5-5.2) L 08/18/23 04:47 Globulin 2.6 g/dL (1.3-4.6) 08/18/23 04:47 Triglycerides 171 mg/dL (0-150) H 08/16/23 04:01 Cholesterol 115 mg/dL (0-200) 08/16/23 04:01 LDL Cholesterol Direct 86 mg/dL (0-100) 08/13/23 01:36 LDL Cholesterol, Calc 49 mg/dL (50-129) L 08/16/23 04:01 HDL Cholesterol 32 mg/dL (60-100) L 08/16/23 04:01 LDL/HDL Ratio 1.53 RATIO (0.00-3.22) 08/16/23 04:01 Cholesterol/HDL Ratio 3.59 mg/dL (0.0-4.40) 08/16/23 04:01 Lipase 47 U/L (13-60) 08/12/23 18:26 Procalcitonin 0.80 ng/mL (0-0.5) H 08/13/23 01:36 TSH 4.80 uIU/mL (0.27-4.20) H 08/13/23 05:47 Urine Color Yellow (Yellow) 08/12/23 18:45 Urine Appearance Sl hazy (CLEAR) A 08/12/23 18:45 Urine pH 5 (5-7) 08/12/23 18:45 Ur Specific [place] 1.030 (1.005-1.030) 08/12/23 18:45 Urine Protein 1+ (Negative) H 08/12/23 18:45 Urine Glucose (UA) Norm (Normal) 08/12/23 18:45 Urine Ketones Negative (Negative) 08/12/23 18:45 Urine Blood 3+ (Negative) H 08/12/23 18:45 Urine Nitrate Negative (Negative) 08/12/23 18:45 Urine Bilirubin Neg (Negative) 08/12/23 18:45 Urine Urobilinogen Norm mg/dL (Negative) 08/12/23 18:45 Ur Leukocyte Esterase Negative (Negative) 08/12/23 18:45 Urine RBC 0-4 /hpf (0-2) H 08/12/23 18:45 Urine WBC 0-4 /hpf (0-5) H 08/12/23 18:45 Ur Squamous Epith Cells 0-4 /hpf (0-5) H 08/12/23 18:45 Amorphous Sediment Trace /hpf 08/12/23 18:45 Urine Bacteria Trace /hpf (NONE) 08/12/23 18:45 Urine Mucus Trace /hpf 08/12/23 18:45 Salicylates < 0.3 mg/dL (3-10) L 08/12/23 18:26 Urine Opiates Screen Negative ng/mL (Negative) 08/12/23 18:45 Acetaminophen < 5.0 ug/mL (10-30) L 08/12/23 18:26 Ur Barbiturates Screen Negative ng/mL (Negative) 08/12/23 18:45 Ur Phencyclidine Scrn Negative ng/mL (Negative) 08/12/23 18:45 Ur Amphetamines Screen Negative ng/mL (Negative) 08/12/23 18:45 U Benzodiazepines Scrn Negative ng/mL (Negative) 08/12/23 18:45 Urine Cocaine Screen Negative ng/mL (Negative) 08/12/23 18:45 U Marijuana (THC) Screen Negative ng/mL (Negative) 08/12/23 18:45 Ethyl Alcohol < 10 mg/dL (0-10) 08/12/23 18:26 Serum Ketones Negative (Negative) 08/12/23 18:26 RPR w/Rflx to Titer Non-reactive (NON-REACTIVE) 08/13/23 05:47 Adenovirus (PCR) Not detected (NOT DETECT) 08/13/23 06:30 C. pneumoniae DNA (PCR) Not detected (NOT DETECT) 08/13/23 06:30 Coronavirus 229E (PCR) Not detected (NOT DETECT) 08/13/23 06:30 Hepatitis A IgM Ab Non-reactive (Nonreactive) 08/13/23 01:36 Hep Bs Antigen Non-reactive (Nonreactive) 08/13/23 01:36 Hep Bs Antibody < 3.5 (11.5-1000) L 08/13/23 01:36 Hep B Core Total Ab Non-reactive (Nonreactive) 08/13/23 01:36 Hepatitis C Antibody Non-reactive (Nonreactive) 08/13/23 01:36 HIV 1&2 Ab & HIV 1 Ag Non-reactive (Non-Reactiv) 08/13/23 01:36 HIV 1&2 Antibody Non-reactive (Non-Reactiv) 08/13/23 01:36 Human Metapneumovir PCR Not detected (NOT DETECT) 08/13/23 06:30 Influenza A (H1) PCR Not detected (NOT DETECT) 08/13/23 06:30 Influ A (H1/09) PCR Not detected (NOT DETECT) 08/13/23 06:30 Influenza A (H3) PCR Not detected (NOT DETECT) 08/13/23 06:30 Influenza Type A (PCR) Not detected (NOT DETECT) 08/13/23 06:30 Influenza Type B (PCR) Not detected (NOT DETECT) 08/13/23 06:30 M. pneumoniae (PCR) Not detected (NOT DETECT) 08/13/23 06:30 Parainfluenza 1 (PCR) Not detected (NOT DETECT) 08/13/23 06:30 Parainfluenza 2 (PCR) Not detected (NOT DETECT) 08/13/23 06:30 Parainfluenza 3 (PCR) Not detected (NOT DETECT) 08/13/23 06:30 Parainfluenza 4 (PCR) Not detected (NOT DETECT) 08/13/23 06:30 RSV Type A (PCR) Not detected (NOT DETECT) 08/13/23 06:30 RSV Type B (PCR) Not detected (NOT DETECT) 08/13/23 06:30 Entero/Rhino (PCR) Not detected (NOT DETECT) 08/13/23 06:30 SARS-CoV-2 (PCR) Not detected (NOT DETECT) 08/13/23 06:30 Micro: Microbiology 08/12/23 19:54 Blood Culture - Final Blood NO GROWTH AFTER 5 DAYS 04/17/24 19:50 Blood Culture - Final Blood NO GROWTH AFTER 5 DAYS A&P Assessment and plan (1) Suicide attempt by drug overdose: Patient has a history of depression and substance abuse with previous admissions to psychiatric facilities and suicide attempts. She was found down at home brought in the ED with rhabdomyolysis. She has altered mental status possibly due to delirium or encephalopathy. CT performed in the ED shows no abnormalities. Urine drug screen performed in the ED shows no illicit substances, negative for salicylates, or acetaminophen. Psychiatry has been consulted, consult appreciated, they will be admitting her to neuropsych and following up with her after medical stabilization. Psychiatry continue to follow today. Transfer to neuropsych unit today, neuropsychiatry 21-day hold. (2) Altered mental status: Consistent with encephalopathy. Overall this appears resolved today. Qualifiers: Altered mental status type: unspecified Qualified Code(s): R41.82 - Altered mental status, unspecified (3) Acute dehydration: Patient found down at home, with elevated CK. Dehydration resolved CK trending down: 1196 today. Patient eating and drinking adequately. Discontinue IV fluid?p.o. fluid intake should suffice. Safe to go to Neuropsych Unit today. (4) Rhabdomyolysis: Slow improvement. Safe to go to Neuropsych Unit today. Qualifiers: Encounter type: initial encounter Rhabdomyolysis type: traumatic Qualified Code(s): T79.6XXA - Traumatic ischemia of muscle, initial encounter (5) Elevated troponin: Troponin was elevated. Likely type II elevation. Likely secondary to massively increased CK. Cardiology consulted, appreciated. They are considering nuclear stress test outpatient, or perhaps inpatient. Echocardiogram shows 57% EF Continue aspirin, statin, beta-abdoulaye, Plavix (6) Alcohol use disorder: Patient has a history of substance use disorder, and psychiatric history. Continue to follow with psychiatry after discharge. Consider substance abuse rehab. (7) Major depressive disorder, recurrent: Patient has a history of substance use disorder and psychiatric history. Continue to follow with psychiatry after discharge. Psychiatry awaiting medical stabilization for admit Neuropsych Unit (8) Pediculosis: Patient presents to the ED with head lice. Head shaven. Treated with permethrin. (9) Multiple injuries: Resolving (10) Acute kidney injury: Patient found down at home for unknown amount of time. Her CK has been elevated, but [place] [id number] 08/16 - CK: 2448 Admitting creatinine: 3.7 08/16?creatinine: 0.7 Creatinine continues to be stable today, shows patient renal function is improving. Discontinue IV fluids, p.o. fluid intake should suffice. (11) Leukocytosis: Resolving Qualifiers: Leukocytosis type: other Qualified Code(s): D72.828 - Other elevated white blood cell count (12) Thrombocytopenia: Stable (13) Hypokalemia: Supplemented yesterday with 40 mEq p.o. Potassium was 3.8, resolved today. (14) Hypomagnesemia: Supplemented yesterday. 1.9 today, resolved. Plan Other medical problems as outlined in past medical history. Plan for today08/18/2023 ? Continue normal saline 100 cc/h ? Stress test results have been normal. ? Patient is medically stable, can transfer to [facility] today. Coding Level of Care Code 60766 Diagnoses Suicide attempt by drug overdose T50.902A Altered mental status, unspecified altered mental status type R41.82 Altered mental status type: unspecified Acute dehydration E86.0 Rhabdomyolysis T79.6XXA Encounter type: initial encounter Rhabdomyolysis type: traumatic Elevated troponin R79.89 Alcohol use disorder F10.90 Major depressive disorder, recurrent F33.9 Pediculosis B85.2 Multiple injuries T07.XXXA Acute kidney injury N17.9 Other elevated white blood cell (WBC) count D72.828 Leukocytosis type: other Thrombocytopenia D69.6 Hypokalemia E87.6 Hypomagnesemia E83.42 Documented by User: Liliana Verdugo MD 08/19/23 11:56 Physical Exam Urinary Catheter Management: Mireles: Cath Placed During This Visit: yes, but has since been removed by the nurse Data 08/19/23 03:26 08/19/23 03:26 A&P Assessment and plan (1) Suicide attempt by drug overdose: (2) Altered mental status: Qualifiers: Altered mental status type: unspecified Qualified Code(s): R41.82 - Altered mental status, unspecified (3) Acute dehydration: (4) Rhabdomyolysis: Qualifiers: Encounter type: initial encounter Rhabdomyolysis type: traumatic Qualified Code(s): T79.6XXA - Traumatic ischemia of muscle, initial encounter (5) Elevated troponin: (6) Alcohol use disorder: (7) Major depressive disorder, recurrent: (8) Pediculosis: (9) Multiple injuries: (10) Acute kidney injury: (11) Leukocytosis: Qualifiers: Leukocytosis type: other Qualified Code(s): D72.828 - Other elevated white blood cell count (12) Thrombocytopenia: (13) Hypokalemia: (14) Hypomagnesemia: Plan Other medical problems as outlined in past medical history. Plan for today08/18/ ? Patient is medically stable, can transfer to [facility] today. - stop plavix - continue asa 81, lipitor 40, lopressor 25 bid. - f/u with pcp at discharge - stop IV fluids Attestations Medical Necessity Statement*: defer to primary psych team Diagnoses Suicide attempt by drug overdose T50.902A Altered mental status, unspecified altered mental status type R41.82 Altered mental status type: unspecified Acute dehydration E86.0 Rhabdomyolysis T79.6XXA Encounter type: initial encounter Rhabdomyolysis type: traumatic Elevated troponin R79.89 Alcohol use disorder F10.90 Major depressive disorder, recurrent F33.9 Pediculosis B85.2 Multiple injuries T07.XXXA Acute kidney injury N17.9 Other elevated white blood cell (WBC) count D72.828 Leukocytosis type: other Thrombocytopenia D69.6 Hypokalemia E87.6 Hypomagnesemia E83.42
--- NOTE | 2023-08-19 11:53 | PC.NURSE ---
Bedside report is called to ANIVAL Kumar in NPU. She will be going to NPU room 150 bed 2.
[2023-08-19 12:34] VITALS: BP 117/73; PULSE 82; RESP 16; TEMP 36.3; O2SAT 94
[2023-08-19 12:46] VITALS: BMI 23.3
--- NOTE | 2023-08-19 13:58 | PC.ADMIT ---
[facility] W Admission Note: The patient,Sobeida Barrios,53 y/o, was given written information regarding hospital policies, unit procedures and contact persons. Patient's smoking status: .10 CIGS A DAY AND VAP0ES Vital Signs - 8 hr 08/19/23 06:00 08/19/23 07:43 08/19/23 12:34 Temperature 98.3 F 97.3 F L Pulse Rate 88 86 82 Respiratory Rate 20 H 16 Blood Pressure 132/68 117/73 Pulse Oximetry 95 94 Oxygen Delivery Method Room Air 08/19/23 13:40 Temperature Pulse Rate Respiratory Rate Blood Pressure Pulse Oximetry Oxygen Delivery Method Room Air TRANSFERRED FROM CSU AT 1224 FOR SUICIDE ATTEMPT ON 08/12/23 WITH UNDISCLOSED AMOUNT OF SLEEPING PILLS PT STATES SHE IS HERE DUE TO DRINKING AND THINGS GOT WORSE AND THOUGHT EVERYTHING WAS OVER. PT STATES SHE DOES NOT REMEMBER WHAT HAPPENED. PT DENIES ANY PHYSICAL/EMOTIONAL/SEXUAL ABUSE. REPORTS A PREVIOUS SUICIDE ATTEMPT WHEN I WAS A GIRL BUT IT WAS YEARS AGO AND THIS IS DIFFERENT, I REALLY NEED HELP. PT IS OBSERVED HAVING MULTIPLE SKIN ISSUES THAT ARE DOCUMENTED ON THE PHYSICAL ASSESSMENT (SEE FOR DETAILS) DENIES SI/HI AND AVH AT THIS TIME. DENIES PAIN, OTHER THAN NORMAL DISCOMFORT. DECLINES MEDICATIONS. PT STATES SHE HAS NEVER BEEN IN A PSYCH FACILITY BEFORE AND DOES NOT SEE A PHYSICIAN FOR OR PSYCHIATRIST AT THIS TIME. ORDERS RECEIVED TO USE WALKER AND PT CONSULT FOR WALKER. RATES ANXIETY 8/10 AND DEPRESSION 10/10. DETAILED EDUCATION WAS GIVEN TO PT ON NPU, RULES, GUIDELINES AND GROUP TIMES. ALL QUESTIONS ANSWERED AND SUPPORT VOICED.
[2023-08-19 14:00] VITALS: BP 117/73; PULSE 82; RESP 16; TEMP 36.3; O2SAT 94
--- NOTE | 2023-08-19 14:00 | P.NPUPN_ITS ---
Subjective NPU 2 Subjective: Patient presented today reporting that she doing okay. She was tearful during change in acknowledging that she may be here. We discussed the 21-day hold hearing and how it would go and its purpose. We discussed working with her to identify any additional safety concerns and getting her connected with resources and evaluating whether the Prozac will be sufficient to get her well enough for discharge. She denied any side effects to the medications. Mental Status Exam 2 MSE Comments: This is an overweight versus obese white female in a hospital gown with limited grooming and eye contact. Head shaven secondary to lice infestation. No abnormal movements except for mild psychomotor retardation. More cooperative with exam in mild distress. Speech was decreased rate and volume with less latency of response. Mood described as okay, affect somewhat stoic and subdued. Thought process linear and less confused. Thought content: Patient denied active suicidal or homicidal ideation, there were no delusions reported or noted, she denied any auditory or visual hallucinations. Attention and concentration were limited and memory was appearing mostly unreliable but none were formally tested. She is alert and oriented to person and place. Insight, judgment and impulse control were impaired. Vitals/I&O/Wt Last Vital Signs Temp 97.3 F L 08/19/23 12:34 Pulse 82 08/19/23 12:34 Resp 16 08/19/23 12:34 BP 117/73 08/19/23 12:34 Pulse Ox 94 08/19/23 12:34 O2 Del Method Room Air 08/19/23 13:40 08/18/23 08/19/23 08/19/23 22:59 06:59 14:59 Intake Total 1000 / 1770 480 / 480 Balance 1000 / 1770 480 / 480 Weight last 48 hrs Weight 63.503 kg Weight 76.204 kg Weight 76.204 kg Physical Exam 2 Urinary Catheter Management: Mireles: Cath Placed During This Visit: yes, but has since been removed by the nurse Reason for Continuing Indwelling Catheter: Accurate Measurement of Urinary Output in Critically Ill Patients Urinary Catheter Date of Insertion: 08/13/23 Urinary Catheter Time of Insertion: 00:11 Date Urinary Catheter Removed: 08/17/23 Time Urinary Catheter Discontinued: 08:30 Data NPU 08/19/23 03:26 08/19/23 03:26 A&P Assessment and plan (1) Alcohol use disorder: (2) Suicide attempt by drug overdose: (3) Major depressive disorder, recurrent: Plan Patient is a 53-year-old white female with known history of mental health and addiction issues with past admission to psychiatric facilities and suicide attempts who presented to the ICU after being found in her home on the ground with resultant rhabdomyolysis and a suicide note. 1. Continue current medication except initiated Prozac 20 mg p.o. daily. 2. Recommend sober living treatment after discharge at the highest level of care to which the patient is willing to commit. 3. Patient transferred to the neuropsychiatric unit. 4. Will attempt to get collateral information. 5. Hearing for 21-day hold at 3 PM today. Involuntary Hold Information 2 96 Hour Hold: 96 Hour Involuntary Admission: Yes 96 Hour Hold Ending Date: 08/19/23 96 Hour Hold Ending Time: 15:00 Attestations NPU 2 Medical Necessity Statement*: Inpatient hospitalization is medically necessary and the clinically appropriate intervention at this time. We will monitor medications and make changes as indicated. She will be in the hospital for over 2 midnights. Likely length of stay 2 to 5 days. Coding Level of Care Code Acute Code for [facility] Diagnoses Alcohol use disorder F10.90 Suicide attempt by drug overdose T50.902A Major depressive disorder, recurrent F33.9
[2023-08-19 20:07] VITALS: BP 132/77; PULSE 92; RESP 17; TEMP 37.1; O2SAT 99
[2023-08-19] MEDS: atorvastatin 40 mg Tablet PO (22:01)
--- NOTE | 2023-08-20 06:21 | PC.NURSE ---
pt resting was up a lot in the night resp documented nurse notified
[2023-08-20] MEDS: aspirin 81 mg EC Tablet PO (08:40)
[2023-08-20] MEDS: fluoxetine 20 mg Capsule PO (08:40)
[2023-08-20] MEDS: ciprofloxacin 0.3% Op Soln 2.5 mL Btl 1 DROP EYE-BOTH ×3 (08:41→21:00)
[2023-08-20] MEDS: metoprolol tartrate 25 mg Tablet PO ×2 (08:41→20:33)
--- NOTE | 2023-08-20 11:25 | PM.MISC ---
Miscellaneous Note Purpose of Documentation: Peripheral chart review. Patient not seen. Will visit in AM.
--- NOTE | 2023-08-20 13:15 | W.PM.NPUPNS ---
Subjective NPU Subjective: Patient presented today reporting that she is trying to hang in there. She reports she has limited supports is unclear what is going on with her , her marriage or a lot of other factors. She reports that she believes her phone is still with lawn for cement and she was hoping to get that because there was information on her phone that she is going to need. She denied any side effects to the medication but reported there was some pill that she took yesterday and that made her nauseous at some point. 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 Mental Status Exam MSE Comments: This is an overweight versus obese white female in a hospital gown with limited grooming and eye contact. Head shaven secondary to lice infestation. No abnormal movements except for mild psychomotor retardation. More cooperative with exam in mild distress. Speech was decreased rate and volume with less latency of response. Mood described as okay, affect somewhat stoic and subdued. Thought process linear and less confused. Thought content: Patient denied active suicidal or homicidal ideation, there were no delusions reported or noted, she denied any auditory or visual hallucinations. Attention and concentration were limited and memory was appearing mostly unreliable but none were formally tested. She is alert and oriented to person and place. Insight and judgment improving and impulse control limited versus impaired. Vitals/I&O/Wt Last Vital Signs Temp 98.7 F 08/19/23 20:07 Pulse 92 08/19/23 20:07 Resp 17 08/19/23 20:07 BP 132/77 08/19/23 20:07 Pulse Ox 99 08/19/23 20:07 O2 Del Method Room Air 08/19/23 20:07 Weight last 48 hrs Weight 63.503 kg Weight 76.204 kg Physical Exam Urinary Catheter Management: Mireles: Cath Placed During This Visit: yes, but has since been removed by the nurse Reason for Continuing Indwelling Catheter: Accurate Measurement of Urinary Output in Critically Ill Patients Urinary Catheter Date of Insertion: 08/13/23 Urinary Catheter Time of Insertion: 00:11 Date Urinary Catheter Removed: 08/17/23 Time Urinary Catheter Discontinued: 08:30 Data NPU 08/19/23 03:26 08/19/23 03:26 A&P Assessment and plan (1) Alcohol use disorder: (2) Suicide attempt by drug overdose: (3) Major depressive disorder, recurrent: Plan Patient is a 53-year-old white female with known history of mental health and addiction issues with past admission to psychiatric facilities and suicide attempts who presented to the ICU after being found in her home on the ground with resultant rhabdomyolysis and a suicide note. 1. Continue current medication except initiated Prozac 20 mg p.o. daily. 2. Recommend sober living treatment after discharge at the highest level of care to which the patient is willing to commit. 3. Patient transferred to the neuropsychiatric unit. 4. Will attempt to get collateral information. 5. Patient placed on 21-day hold 08/19/2023. We discussed the fact that it was unlikely that she remain here anywhere close to that time at this point. She was hopeful to get some more information about where things were if her visited today. Involuntary Hold Information 96 Hour Hold: 96 Hour Involuntary Admission: Yes 96 Hour Hold Ending Date: 08/19/23 96 Hour Hold Ending Time: 15:00 Attestations NPU Medical Necessity Statement*: Inpatient hospitalization is medically necessary and the clinically appropriate intervention at this time. We will monitor medications and make changes as indicated. Likely length of stay 2-4 days. Coding Level of Care Code Acute Code for g Fwd Diagnoses Alcohol use disorder F10.90 Suicide attempt by drug overdose T50.902A Major depressive disorder, recurrent F33.9
[2023-08-20 14:00] VITALS: BP 103/65; PULSE 86; RESP 16; TEMP 36.6; O2SAT 97
[2023-08-20] MEDS: atorvastatin 40 mg Tablet PO (20:33)
[2023-08-20 22:00] VITALS: BP 120/70; PULSE 93; RESP 17; TEMP 36.6; O2SAT 100
[2023-08-21 06:00] VITALS: BP 116/73; PULSE 81; RESP 16; TEMP 36.7; O2SAT 97
[2023-08-21] MEDS: fluoxetine 20 mg Capsule PO (07:45)
[2023-08-21] MEDS: aspirin 81 mg EC Tablet PO (07:45)
[2023-08-21] MEDS: metoprolol tartrate 25 mg Tablet PO ×2 (07:45→20:34)
[2023-08-21] MEDS: ciprofloxacin 0.3% Op Soln 2.5 mL Btl 1 DROP EYE-BOTH ×2 (07:46→20:33)
[2023-08-21 09:20] VITALS: BP 100/69; PULSE 90; RESP 16; TEMP 36.7; O2SAT 98
--- NOTE | 2023-08-21 10:03 | W.PM.NPUPNS ---
Subjective NPU Subjective: Patient presented today reporting that she is doing okay. She did have a visit from her yesterday vet she did talk to him today and he reported that he is really worried about her wanting her to do what ever she needs to do to be well. She reports that she had a setback today because she had a memory glitch that made it so she could not recall the breed that her dog is which really upset her and made her think about what she has done to herself and figuring out how the get drinking out of her life and make sure that she does not do something like this ever again. She denied any side effects of the medication. Mental Status Exam MSE Comments: This is an overweight versus obese white female in a hospital gown with limited grooming and eye contact. Head shaven secondary to lice infestation. No abnormal movements except for mild psychomotor retardation. More cooperative with exam in mild distress. Speech was decreased rate and volume with less latency of response. Mood described as okay, affect somewhat stoic and subdued. Thought process linear and less confused. Thought content: Patient denied active suicidal or homicidal ideation, there were no delusions reported or noted, she denied any auditory or visual hallucinations. Attention and concentration were limited and memory was appearing mostly unreliable but none were formally tested. She is alert and oriented to person and place. Insight and judgment improving and impulse control limited versus impaired. Vitals/I&O/Wt Last Vital Signs Temp 98.1 F 08/21/23 09:20 Pulse 90 08/21/23 09:20 Resp 16 08/21/23 09:20 BP 100/69 08/21/23 09:20 Pulse Ox 98 08/21/23 09:20 O2 Del Method Room Air 08/21/23 09:20 08/20/23 08/21/23 08/21/23 22:59 06:59 14:59 Intake Total 240 / 240 Balance 240 / 240 Weight last 48 hrs Weight 63.503 kg Physical Exam Urinary Catheter Management: Mireles: Cath Placed During This Visit: yes, but has since been removed by the nurse Reason for Continuing Indwelling Catheter: Accurate Measurement of Urinary Output in Critically Ill Patients Urinary Catheter Date of Insertion: 08/13/23 Urinary Catheter Time of Insertion: 00:11 Date Urinary Catheter Removed: 08/17/23 Time Urinary Catheter Discontinued: 08:30 Data NPU 08/19/23 03:26 08/19/23 03:26 A&P Assessment and plan (1) Alcohol use disorder: (2) Suicide attempt by drug overdose: (3) Major depressive disorder, recurrent: Plan Patient is a 53-year-old white female with known history of mental health and addiction issues with past admission to psychiatric facilities and suicide attempts who presented to the ICU after being found in her home on the ground with resultant rhabdomyolysis and a suicide note. 1. Continue current medication except initiated Prozac 20 mg p.o. daily. 2. Recommend sober living treatment after discharge at the highest level of care to which the patient is willing to commit. 3. Patient transferred to the neuropsychiatric unit. 4. Will attempt to get collateral information. 5. Patient placed on 21-day hold 08/19/2023. We discussed the fact that it was unlikely that she remain here anywhere close to that time at this point. She was hopeful to get some more information about where things were if her visited today. Involuntary Hold Information 96 Hour Hold: 96 Hour Involuntary Admission: Yes 96 Hour Hold Ending Date: 08/19/23 96 Hour Hold Ending Time: 15:00 Attestations NPU Medical Necessity Statement*: Inpatient hospitalization is medically necessary and the clinically appropriate intervention at this time. We will monitor medications and make changes as indicated. Likely length of stay 2-4 days. Coding Level of Care Code Acute Code for [facility] [place] Fwd Diagnoses Alcohol use disorder F10.90 Suicide attempt by drug overdose T50.902A Major depressive disorder, recurrent F33.9
[2023-08-21 12:37] VITALS: BP 111/74; PULSE 82; RESP 16; TEMP 36.5; O2SAT 99
[2023-08-21 20:16] VITALS: BP 113/74; PULSE 89; RESP 16; TEMP 36.7; O2SAT 99
[2023-08-21] MEDS: atorvastatin 40 mg Tablet PO (20:34)
[2023-08-22 06:00] VITALS: BP 112/78; PULSE 72; RESP 16; TEMP 36.9; O2SAT 97
[2023-08-22] MEDS: fluoxetine 20 mg Capsule PO (08:27)
[2023-08-22] MEDS: aspirin 81 mg EC Tablet PO (08:27)
[2023-08-22] MEDS: metoprolol tartrate 25 mg Tablet PO ×2 (08:27→20:34)
[2023-08-22] MEDS: ciprofloxacin 0.3% Op Soln 2.5 mL Btl 1 DROP EYE-BOTH ×3 (08:27→17:58)
--- NOTE | 2023-08-22 12:34 | P.NPUPN_ITS ---
Subjective NPU 2 Subjective: Patient presented today reporting that she is feeling a little more optimistic about her situation. Is mostly due to the fact that she did speak with her and he plans to support and reported that he would help her get some items so that she was not without money or necessities when he goes back to [place] next week. We discussed working with the social work team at the beginning of the week to make sure that we have all the resources necessary for her to have success in recovery as well as her mental health challenges. She denied any side effects to the medication. Mental Status Exam 2 MSE Comments: This is an overweight versus obese white female in a hospital gown with limited grooming and eye contact. Head shaven secondary to lice infestation. No abnormal movements except for mild psychomotor retardation. More cooperative with exam in mild distress. Speech was decreased rate and volume. Mood described as okay, affect somewhat stoic and subdued. Thought process linear and more organized. Thought content: Patient denied active suicidal or homicidal ideation, there were no delusions reported or noted, she denied any auditory or visual hallucinations. Attention and concentration were limited and memory was appearing mostly unreliable but none were formally tested. She is alert and oriented to person and place. Insight and judgment improving and impulse control limited versus impaired. Vitals/I&O/Wt Last Vital Signs Temp 98.4 F 08/22/23 06:00 Pulse 72 08/22/23 06:00 Resp 16 08/22/23 06:00 BP 112/78 08/22/23 06:00 Pulse Ox 97 08/22/23 06:00 O2 Del Method Room Air 08/22/23 06:00 08/21/23 08/22/23 08/22/23 22:59 06:59 14:59 Intake Total 360 / 600 120 / 120 Balance 360 / 600 120 / 120 Physical Exam 2 Urinary Catheter Management: Mireles: Cath Placed During This Visit: yes, but has since been removed by the nurse Reason for Continuing Indwelling Catheter: Accurate Measurement of Urinary Output in Critically Ill Patients Urinary Catheter Date of Insertion: 08/13/23 Urinary Catheter Time of Insertion: 00:11 Date Urinary Catheter Removed: 08/17/23 Time Urinary Catheter Discontinued: 08:30 Data NPU 08/19/23 03:26 08/19/23 03:26 A&P Assessment and plan (1) Alcohol use disorder: (2) Suicide attempt by drug overdose: (3) Major depressive disorder, recurrent: Plan Patient is a 53-year-old white female with known history of mental health and addiction issues with past admission to psychiatric facilities and suicide attempts who presented to the ICU after being found in her home on the ground with resultant rhabdomyolysis and a suicide note. 1. Continue current medication except initiated Prozac 20 mg p.o. daily. 2. Recommend sober living treatment after discharge at the highest level of care to which the patient is willing to commit. 3. Patient transferred to the neuropsychiatric unit. 4. Will attempt to get collateral information. 5. Patient placed on 21-day hold 08/19/2023. We discussed the fact that it was unlikely that she remain here anywhere close to that time at this point. Involuntary Hold Information 2 96 Hour Hold: 96 Hour Involuntary Admission: Yes 96 Hour Hold Ending Date: 08/19/23 96 Hour Hold Ending Time: 15:00 Attestations NPU 2 Medical Necessity Statement*: Inpatient hospitalization is medically necessary and the clinically appropriate intervention at this time. We will monitor medications and make changes as indicated. Likely length of stay 2-4 days. Coding Level of Care Code Acute Code for [facility] Fwd Diagnoses Alcohol use disorder F10.90 Suicide attempt by drug overdose T50.902A Major depressive disorder, recurrent F33.9
[2023-08-22 13:35] VITALS: BP 128/84; PULSE 81; RESP 16; TEMP 36.5; O2SAT 100
[2023-08-22 20:29] VITALS: BP 121/78; PULSE 79; RESP 17; TEMP 36.6; O2SAT 100
[2023-08-22] MEDS: atorvastatin 40 mg Tablet PO (20:34)
[2023-08-22] MEDS: acetaminophen 325 mg Tablet 650 MG PO (22:26)
[2023-08-23 06:00] VITALS: BP 118/75; PULSE 93; RESP 16; TEMP 36.7; O2SAT 96
[2023-08-23] MEDS: acetaminophen 325 mg Tablet 650 MG PO (06:25)
--- NOTE | 2023-08-23 08:21 | P.NPUPN_ITS ---
Subjective NPU 2 Subjective: Patient presented today reporting that she is doing okay and is invested in working with the social work team tomorrow to make sure that she has appropriate aftercare planning and resources to have success with her recovery as well as her mental health challenges. We talked about the possibility of finding a IOP versus partial program given all of the free time that she has as an opportunity to jumpstart her aftercare. She denied any side effects to the medication. Mental Status Exam 2 MSE Comments: This is an overweight versus obese white female in a hospital gown with limited grooming and eye contact. Head shaven secondary to lice infestation. No abnormal movements except for mild psychomotor retardation. More cooperative with exam in mild distress. Speech was decreased rate and volume. Mood described as okay, affect somewhat brighter. Thought process linear and more organized. Thought content: Patient denied active suicidal or homicidal ideation, there were no delusions reported or noted, she denied any auditory or visual hallucinations. Attention and concentration were limited and memory was appearing mostly unreliable but none were formally tested. She is alert and oriented to person and place. Insight and judgment improving and impulse control limited versus impaired. Vitals/I&O/Wt Last Vital Signs Temp 98.0 F 08/23/23 06:00 Pulse 93 08/23/23 06:00 Resp 16 08/23/23 06:00 BP 118/75 08/23/23 06:00 Pulse Ox 96 08/23/23 06:00 O2 Del Method Room Air 08/23/23 06:00 Weight last 48 hrs Weight 67.358 kg Physical Exam 2 Urinary Catheter Management: Mireles: Cath Placed During This Visit: yes, but has since been removed by the nurse Reason for Continuing Indwelling Catheter: Accurate Measurement of Urinary Output in Critically Ill Patients Urinary Catheter Date of Insertion: 08/13/23 Urinary Catheter Time of Insertion: 00:11 Date Urinary Catheter Removed: 08/17/23 Time Urinary Catheter Discontinued: 08:30 Data NPU 08/19/23 03:26 08/19/23 03:26 A&P Assessment and plan (1) Alcohol use disorder: (2) Suicide attempt by drug overdose: (3) Major depressive disorder, recurrent: Plan Patient is a 53-year-old white female with known history of mental health and addiction issues with past admission to psychiatric facilities and suicide attempts who presented to the ICU after being found in her home on the ground with resultant rhabdomyolysis and a suicide note. 1. Continue current medication except initiated Prozac 20 mg p.o. daily. 2. Recommend sober living treatment after discharge at the highest level of care to which the patient is willing to commit. 3. Patient transferred to the neuropsychiatric unit. 4. Will attempt to get collateral information. 5. Patient placed on 21-day hold 08/19/2023. We discussed the fact that it was unlikely that she remain here anywhere close to that time at this point. Involuntary Hold Information 2 96 Hour Hold: 96 Hour Involuntary Admission: Yes 96 Hour Hold Ending Date: 08/19/23 96 Hour Hold Ending Time: 15:00 Attestations NPU 2 Medical Necessity Statement*: Inpatient hospitalization is medically necessary and the clinically appropriate intervention at this time. We will monitor medications and make changes as indicated. Likely length of stay 1-3 days. Coding Level of Care Code Acute Code for [facility] Fwd Diagnoses Alcohol use disorder F10.90 Suicide attempt by drug overdose T50.902A Major depressive disorder, recurrent F33.9
[2023-08-23] MEDS: fluoxetine 20 mg Capsule PO (08:27)
[2023-08-23] MEDS: aspirin 81 mg EC Tablet PO (08:27)
[2023-08-23] MEDS: metoprolol tartrate 25 mg Tablet PO ×2 (08:27→20:27)
[2023-08-23] MEDS: ciprofloxacin 0.3% Op Soln 2.5 mL Btl 1 DROP EYE-BOTH ×4 (08:28→20:28)
[2023-08-23 14:00] VITALS: BP 136/91; PULSE 78; RESP 20; TEMP 36.6; O2SAT 98
[2023-08-23] MEDS: atorvastatin 40 mg Tablet PO (20:27)
[2023-08-23 20:38] VITALS: BP 125/81; PULSE 77; RESP 18; TEMP 36.7; O2SAT 96
[2023-08-24] MEDS: trazodone 50 mg Tablet PO (02:32)
[2023-08-24 06:00] VITALS: BP 123/73; PULSE 90; RESP 18; TEMP 37; O2SAT 97
[2023-08-24] MEDS: OLANZapine 5 mg ODT PO (07:48)
[2023-08-24] MEDS: fluoxetine 20 mg Capsule PO (07:48)
[2023-08-24] MEDS: aspirin 81 mg EC Tablet PO (07:49)
[2023-08-24] MEDS: ciprofloxacin 0.3% Op Soln 2.5 mL Btl 1 DROP EYE-BOTH ×3 (07:49→17:56)
[2023-08-24] MEDS: metoprolol tartrate 25 mg Tablet PO ×2 (07:49→20:15)
[2023-08-24 14:00] VITALS: BP 111/74; PULSE 78; RESP 18; TEMP 36.9; O2SAT 98
--- NOTE | 2023-08-24 16:26 | P.NPUPN_ITS ---
Subjective NPU 2 Subjective: Patient presented today reporting that she was happy to get a bed date at [facility] but somewhat concerned about the 3 weeks between now and when she goes to rehab. Also having significant difficulties with sleep and we discussed the risks, benefits and alternatives of a trial of Seroquel and she understood and agreed to proceed as is documented in this note. We also discussed the possibility of considering naltrexone as something that could help with her cravings moving forward and she understood and agreed to proceed as is documented in this note reporting that she would think about the naltrexone. She denied any side effects to current medication. Mental Status Exam 2 MSE Comments: This is an overweight versus obese white female in a hospital gown with limited grooming and eye contact. Head shaven secondary to lice infestation. No abnormal movements except for mild psychomotor retardation. More cooperative with exam in mild distress. Speech was more normal rate and volume. Mood described as okay, affect somewhat brighter. Thought process linear and more organized. Thought content: Patient denied active suicidal or homicidal ideation, there were no delusions reported or noted, she denied any auditory or visual hallucinations. Attention and concentration were limited and memory was appearing mostly unreliable but none were formally tested. She is alert and oriented to person and place. Insight and judgment improving and impulse control limited versus impaired. Vitals/I&O/Wt Last Vital Signs Temp 98.6 F 08/24/23 06:00 Pulse 90 08/24/23 06:00 Resp 18 08/24/23 06:00 BP 123/73 08/24/23 06:00 Pulse Ox 97 08/24/23 06:00 O2 Del Method Room Air 08/23/23 06:00 Weight last 48 hrs Weight 67.358 kg Physical Exam 2 Urinary Catheter Management: Mireles: Cath Placed During This Visit: yes, but has since been removed by the nurse Reason for Continuing Indwelling Catheter: Accurate Measurement of Urinary Output in Critically Ill Patients Urinary Catheter Date of Insertion: 08/13/23 Urinary Catheter Time of Insertion: 00:11 Date Urinary Catheter Removed: 08/17/23 Time Urinary Catheter Discontinued: 08:30 Data NPU 08/19/23 03:26 08/19/23 03:26 A&P Assessment and plan (1) Alcohol use disorder: (2) Suicide attempt by drug overdose: (3) Major depressive disorder, recurrent: Plan Patient is a 53-year-old white female with known history of mental health and addiction issues with past admission to psychiatric facilities and suicide attempts who presented to the ICU after being found in her home on the ground with resultant rhabdomyolysis and a suicide note. 1. Continue current medication except initiated Prozac 20 mg p.o. daily. Initiate Seroquel 50 mg p.o. nightly for sleep. 2. Recommend sober living treatment after discharge at the highest level of care to which the patient is willing to commit. 3. Patient transferred to the neuropsychiatric unit. 4. Will attempt to get collateral information. 5. Patient placed on 21-day hold 08/19/2023. Patient [facility] bed date [facility] for 09/15/2023. We are discussing possible programming including the crisis stabilization center to provide assistance in the 3 weeks she will be waiting for said bed. Involuntary Hold Information 2 96 Hour Hold: 96 Hour Involuntary Admission: Yes 96 Hour Hold Ending Date: 08/19/23 96 Hour Hold Ending Time: 15:00 Attestations NPU 2 Medical Necessity Statement*: Inpatient hospitalization is medically necessary and the clinically appropriate intervention at this time. We will monitor medications and make changes as indicated. Likely length of stay 1-2 days. Coding Level of Care Code Acute Code for g Fwd Diagnoses Alcohol use disorder F10.90 Suicide attempt by drug overdose T50.902A Major depressive disorder, recurrent F33.9
[2023-08-24] MEDS: acetaminophen 325 mg Tablet 650 MG PO (16:48)
[2023-08-24 19:28] VITALS: BP 111/70; PULSE 78; RESP 20; TEMP 36.6; O2SAT 100
[2023-08-24] MEDS: quetiapine 25 mg Tablet 50 MG PO (20:15)
[2023-08-24] MEDS: atorvastatin 40 mg Tablet PO (20:15)
[2023-08-25 06:00] VITALS: BP 116/77; PULSE 91; RESP 16; TEMP 36.8; O2SAT 97
[2023-08-25] MEDS: fluoxetine 20 mg Capsule PO (08:43)
[2023-08-25] MEDS: aspirin 81 mg EC Tablet PO (08:43)
[2023-08-25] MEDS: ciprofloxacin 0.3% Op Soln 2.5 mL Btl 1 DROP EYE-BOTH ×3 (10:37→18:11)
[2023-08-25] MEDS: metoprolol tartrate 25 mg Tablet PO ×2 (11:19→20:22)
[2023-08-25 13:48] VITALS: BP 113/75; PULSE 87; RESP 16; TEMP 36.9; O2SAT 100
--- NOTE | 2023-08-25 14:45 | P.NPUPN_ITS ---
Subjective NPU 2 Subjective: Patient presented today reporting that she is doing okay. She endorsed anxiety about making sure there were processes in place for after discharge when she is feeling a certain way and alone. We discussed different resources and she worked with the social work team to have appropriate numbers and options in place for when she has some challenging times. We discussed her having a clear safety and that in place and discussed a plan for discharge tomorrow. She denied any side effects to the medication. Mental Status Exam 2 MSE Comments: This is an overweight versus obese white female in a hospital gown with limited grooming and eye contact. Head shaven secondary to lice infestation. No abnormal movements except for mild psychomotor retardation. More cooperative with exam in mild distress. Speech was more normal rate and volume. Mood described as okay, affect somewhat brighter. Thought process linear and more organized. Thought content: Patient denied active suicidal or homicidal ideation, there were no delusions reported or noted, she denied any auditory or visual hallucinations. Attention and concentration were limited and memory was appearing mostly unreliable but none were formally tested. She is alert and oriented to person and place. Insight and judgment improving and impulse control limited versus impaired. Vitals/I&O/Wt Last Vital Signs Temp 98.5 F 08/25/23 13:48 Pulse 87 08/25/23 13:48 Resp 16 08/25/23 13:48 BP 113/75 08/25/23 13:48 Pulse Ox 100 08/25/23 13:48 O2 Del Method Room Air 08/25/23 13:48 Physical Exam 2 Urinary Catheter Management: Mireles: Cath Placed During This Visit: yes, but has since been removed by the nurse Reason for Continuing Indwelling Catheter: Accurate Measurement of Urinary Output in Critically Ill Patients Urinary Catheter Date of Insertion: 08/13/23 Urinary Catheter Time of Insertion: 00:11 Date Urinary Catheter Removed: 08/17/23 Time Urinary Catheter Discontinued: 08:30 Data NPU 08/19/23 03:26 08/19/23 03:26 A&P Assessment and plan (1) Alcohol use disorder: (2) Suicide attempt by drug overdose: (3) Major depressive disorder, recurrent: Plan Patient is a 53-year-old white female with known history of mental health and addiction issues with past admission to psychiatric facilities and suicide attempts who presented to the ICU after being found in her home on the ground with resultant rhabdomyolysis and a suicide note. 1. Continue current medication except initiated Prozac 20 mg p.o. daily. Initiated Seroquel 50 mg p.o. nightly for sleep. 2. Recommend sober living treatment after discharge at the highest level of care to which the patient is willing to commit. 3. Patient transferred to the neuropsychiatric unit. 4. Will attempt to get collateral information. 5. Patient placed on 21-day hold 08/19/2023. Patient [facility] bed date at [facility] for 09/15/2023. We are discussing possible programming including the crisis stabilization center to provide assistance in the 3 weeks she will be waiting for said bed. Plan for discharge tomorrow. Involuntary Hold Information 2 96 Hour Hold: 96 Hour Involuntary Admission: Yes 96 Hour Hold Ending Date: 08/19/23 96 Hour Hold Ending Time: 15:00 Attestations NPU 2 Medical Necessity Statement*: Inpatient hospitalization is medically necessary and the clinically appropriate intervention at this time. We will monitor medications and make changes as indicated. Likely length of stay 1 day. Coding Level of Care Code Acute Code for [facility] Fwd Diagnoses Alcohol use disorder F10.90 Suicide attempt by drug overdose T50.902A Major depressive disorder, recurrent F33.9
[2023-08-25 19:33] VITALS: BP 118/78; PULSE 68; RESP 17; TEMP 37.1; O2SAT 98
[2023-08-25] MEDS: atorvastatin 40 mg Tablet PO (20:22)
[2023-08-25] MEDS: trazodone 50 mg Tablet PO (20:22)
[2023-08-25] MEDS: quetiapine 25 mg Tablet 50 MG PO (20:22)
[2023-08-25] MEDS: zolpidem 5 mg Tablet 2.5 MG PO (22:26)
[2023-08-26 06:00] VITALS: BP 107/70; PULSE 97; RESP 15; TEMP 37.4; O2SAT 97
--- NOTE | 2023-08-26 06:29 | PC.NURSE ---
pt temp 99.3 pt was drinking hot coffee just prior to vs
[2023-08-26] MEDS: ciprofloxacin 0.3% Op Soln 2.5 mL Btl 1 DROP EYE-BOTH ×2 (06:42→12:55)
[2023-08-26] MEDS: metoprolol tartrate 25 mg Tablet PO (08:17)
[2023-08-26] MEDS: fluoxetine 20 mg Capsule PO (08:17)
[2023-08-26] MEDS: aspirin 81 mg EC Tablet PO (08:17)
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
[2023-08-26 12:23] VITALS: BP 107/70; PULSE 97; RESP 15; TEMP 37.4; O2SAT 97
[2023-08-26 12:24] VITALS: BP 107/70; PULSE 97; RESP 15; TEMP 37.4; O2SAT 97
== END 2023-08-26 13:52 | disposition home or self-care (01) | DRG 917 ==
LOC: ER 22:04 → ICU 23:23 → CSU 08-15 16:09 → NP 08-19 12:17
PROVIDERS: Family Medicine; Internal Medicine; Admitting Provider Student in an Organized Health Care Education/Training Program; Emergency Provider Internal Medicine; Visit Provider Psychiatry & Neurology Psychiatry
DX: T50.902A Poisoning by unspecified drugs, medicaments and biological substances, intentional self-harm, initial encounter (principal); I21.A1 Myocardial infarction type 2; G93.40 Encephalopathy, unspecified; N17.9 Acute kidney failure, unspecified; E87.20 Acidosis, unspecified; E87.0 Hyperosmolality and hypernatremia; B85.0 Pediculosis due to Pediculus humanus capitis; T79.6XXA Traumatic ischemia of muscle, initial encounter; S10.93XA Contusion of unspecified part of neck, initial encounter; S00.83XA Contusion of other part of head, initial encounter; S40.022A Contusion of left upper arm, initial encounter; S40.021A Contusion of right upper arm, initial encounter; S80.12XA Contusion of left lower leg, initial encounter; S80.11XA Contusion of right lower leg, initial encounter; X58.XXXA Exposure to other specified factors, initial encounter; E86.0 Dehydration; L89.629 Pressure ulcer of left heel, unspecified stage; L89.619 Pressure ulcer of right heel, unspecified stage; L89.029 Pressure ulcer of left elbow, unspecified stage; F32.9 Major depressive disorder, single episode, unspecified; F10.10 Alcohol abuse, uncomplicated; F17.210 Nicotine dependence, cigarettes, uncomplicated; E88.09 Other disorders of plasma-protein metabolism, not elsewhere classified; D69.6 Thrombocytopenia, unspecified; E83.42 Hypomagnesemia; Z11.52 Encounter for screening for COVID-19
CPT/HCPCS: 36415; 36600; 51702; 70450; 70490; 71045; 71250; 72125; 73080; 73502; 73562; 74176; 78452; 80048; 80051; 80053; 80061; 80306; 80307; 81001; 82009; 82140; 82330; 82550; 82805; 83036; 83605; 83690; 83721; 83735; 84145; 84443; 84484; 85025; 85049; 85730; 86140; 86403; 86592; 86705; 86706; 86709; 86803; 87040; 87340; 87486; 87581; 87633; 87806; 90471; 90715; 93005; 93017; 93306; 93922; 96365; 96367; 96372; 96375; 96376; 97150; 97165; 99291; A9500; C9113; J0456; J0696; J1644; J1650; J2543; J2785; J3370; J3475; J7030; J7050; J7799